=== PATIENT | male | born 1940 | race Caucasian/White ===

== ENCOUNTER → 2018-06-15 | Outpatient (CLI) | payer MEDICARE ==
--- NOTE | 2018-06-15 10:43 | CT ---
EXAMINATION TYPE: CT chest w con DATE OF EXAM: 06/15/2018 COMPARISON: 11/25/2014 HISTORY: COPD CT DLP: 295.4 mGycm Automated exposure control for dose reduction was used. CONTRAST: CT scan of the chest is performed with IV Contrast, patient injected with 100 mL of Isovue 300. FINDINGS: LUNGS: The lungs are grossly clear, there is no concerning parenchymal mass or nodule identified. T here is no pleural effusion or pneumothorax seen. The tracheobronchial tree is patent. MEDIASTINUM: There are no greater than 1 cm hilar or mediastinal lymph nodes. No pericardial effusi on is seen. Thoracic aorta is of normal caliber. The heart is not enlarged. UPPER ABDOMEN: No significant abnormality appreciated. OTHER: Severe degenerative changes thoracic spine. Associated spondylosis. IMPRESSION: 1. No distinct abnormality at this time.
--- NOTE | 2018-06-15 13:02 | XR ---
EXAMINATION TYPE: XR chest 2V DATE OF EXAM: 06/15/2018 COMPARISON: CT chest 06/15/2018 HISTORY: Chronic sinusitis, cough TECHNIQUE: Frontal and lateral views of the chest are obtained. FINDINGS: There is no focal air space opacity, pleural effusion, or pneumothorax seen. The cardiac silhouette size is within normal limits. The osseous structures are intact. Surgical clips are pres ent in the right upper quadrant. Thoracic spondylosis is present. There is a mild spinal curvature. IMPRESSION: No acute cardiopulmonary process.
== END | disposition home or self-care (01) ==
LOC: RADCTMAIN 08:48
PROVIDERS: ATTEND Family Medicine
DX: J44.9 Chronic obstructive pulmonary disease, unspecified (principal)
CPT/HCPCS: 82565; 84520; 71046; 71260; 36415; Q9967

== ENCOUNTER → 2018-06-21 | Outpatient (CLI) | payer MEDICARE ==
--- NOTE | 2018-06-21 10:19 | P.STRESS ---
- Stress Test Note Stress Test Results/Findings: Exam Performed: stress test Exam Date: 06/21/18 Reason for Exam: ABNORMAL EKG Height: 5 ft 8 in Weight: 79.379 kg Protocol: MERLIN Stage: 1 Duration of Exercise: 3:00 Resting Heart Rate: 59 Resting Blood Pressure: 121/80 Maximum Achieved Heart Rate: 126 Maximum Achieved Blood Pressure: 196/86 85% PMHR: 119 100% PMHR: 140 METS: 4.4 Technologist Comment: Stress Test Results/Findings: THIS IS A 78-YEAR-OLD GENTLEMAN WITH HISTORY OF HYPERTENSION, HYPERCHOLESTEROLEMIA AND ALSO SMOKING HISTORY, BEING EVALUATED FOR CARDIAC STATUS. BECAUSE OF ABNORMAL EKG. STRESS data Baseline EKG showed sinus rhythm with occasional PVCs and small Q waves in inferior leads. Blood pressure at rest is 120/80 with pulse rate of 59. Patient walked on the Merlin protocol for 3 minutes, achieving a maximal heart to 126 with a blood pressure of 196/89. Patient is achieving 90% of the pectoral heart rate. EKGs taken during and after the x-ray did not reveal any changes of ischemia. Patient did not express any chest pain. Final impression: #1. Negative regular stress test #2 patient did not experience any chest pain #3. No significant arrhythmias are noted.
== END | disposition home or self-care (01) ==
LOC: RADNMMAIN 08:30
PROVIDERS: ATTEND Family Medicine
DX: R94.31 Abnormal electrocardiogram [ECG] [EKG] (principal)
CPT/HCPCS: 93017

== ENCOUNTER → 2018-09-26 | Outpatient (CLI) | payer MEDICARE ==
--- NOTE | 2018-09-26 15:54 | US ---
EXAMINATION TYPE: US scrotum with doppler. DATE OF EXAM: 09/26/2018 COMPARISON: 08/27/2013 CLINICAL HISTORY: 78-year-old male N50.9 MALE GENITAL ORGANS. Left side swelling and redness x 1 porter h ago-- has improved since starting medication. TECHNIQUE: Grayscale and color Doppler Duplex imaging performed of the scrotum. Findings: EXAM MEASUREMENTS: TESTICLES: Right Testicle: 3.9 x 2.3 x 1.9 cm for a volume of 8.5 mL. Left Testicle: 3.4 x 2.7 x 3.0 cm for a volume of 13.8 mL. The right testicle appears heterogeneous and is asymmetrically smaller no hyperemia. There is some as ymmetric thickening of the right hemiscrotal skin at 6 mm as well. Satisfactory arterial and venous flow demonstrated in both ovaries. EPIDIDYMIS HEAD: Right Epididymis: 0.7 x 1.1 x 0.7 cm Left Epididymis: 0.9 x 1.0 x 0.9 cm with a small 4 mm cyst. Presence of hydroceles: Small to moderate on the left Presence of varicoceles: Some prominent vessels on the right without significant dilatation to sugge st varicoceles. IMPRESSION: 1. No sonographic evidence for testicular torsion. 2. Asymmetrically smaller and heterogeneous right testicle. This is a new finding from 08/27/2013. Cor relate for any traumatic or inflammatory insult to the right testicle in the interval. Consider urolo gy referral as an infiltrative process including lymphoma would be difficult to exclude by imaging. H owever, the overall smaller size of the testicle does argue against this. 3. Small to moderate-sized hydrocele on the left.
== END ==
LOC: RADUSWWP 12:51
PROVIDERS: ATTEND Family Medicine
DX: N43.3 Hydrocele, unspecified (principal); R93.811 Abnormal radiologic findings on diagnostic imaging of right testicle
CPT/HCPCS: 76870; 93975

== ENCOUNTER 2019-07-15 16:29 | Inpatient (IN) | payer MEDICARE ==
[2019-07-15] MEDS ORDERED: SODIUM CHLORIDE 0.9% 500 ML 500 ML IV STA (17:49)
[2019-07-15] MEDS ORDERED: ONDANSETRON 4 MG/2 ML VIAL IVP STA (17:49)
[2019-07-15] MEDS ORDERED: MORPHINE SULFATE 2 MG/ML SYRINGE IVP STA ×2 (17:49→19:52)
--- NOTE | 2019-07-15 17:55 | ED ---
Abdominal Pain HPI <Aníbal Ricci - Last Filed: 07/15/19 21:10> - General Source: patient Mode of arrival: ambulatory Limitations: no limitations <Rosa Larson - Last Filed: 07/15/19 23:03> - General Chief Complaint: Abdominal Pain Stated Complaint: URI Time Seen by Provider: 07/15/19 17:36 - History of Present Illness Initial Comments: 79-year-old male patient presents to the emergency department today for evaluation of lower abdominal pain. Patient states the pain started this morning with a vague ache in his left lower abdomen. Patient states throughout the day the pain has been worsening. States he was recently ill with an upper respiratory infection including cough. Patient states that whenever he coughs now the pain intensifies. He did have a bowel movement yesterday but states it was smaller than usual. He did try Ex-Lax today without relief. Denies any difficulty with urination however he does perform self-catheterization for chronic urinary retention. Denies any hematuria. Denies any back or flank pain. He does have history of bilateral lower abdominal hernia repair. States he did use mesh. He denies any known bulging to the lower abdomen. Patient denies any recent rash, fever, chills, shortness breath, chest pain, nausea, vomiting, numbness, tingling, dizziness, weakness, headache, visual changes, or any other complaints. (Rosa Larson) - Related Data Home Medications Medication Instructions Recorded Confirmed Diltiazem Cd [Cardizem Cd] 180 mg PO DAILY 04/12/16 07/15/19 Ergocalciferol [Vitamin D2] 50,000 unit PO FR 04/12/16 07/15/19 Levothyroxine Sodium [Synthroid] 100 mcg PO DAILY 04/12/16 07/15/19 Dm/Acetaminophen/Doxylamine [Vicks 10 ml PO Q6H PRN 07/15/19 07/15/19 Nyquil Cold-Flu Liquid] guaiFENesin-DM 100-10MG/5ML 10 ml PO Q6H PRN 07/15/19 07/15/19 [Robitussin DM] Allergies Allergy/AdvReac Type Severity Reaction Status Date / Time No Known Allergies Allergy Verified 07/15/19 18:15 Review of Systems ROS Other: All systems not noted in ROS Statement are negative. <Aníbal Ricci - Last Filed: 07/15/19 21:10> ROS Other: All systems not noted in ROS Statement are negative. <Rosa Larson - Last Filed: 07/15/19 23:03> ROS Statement: Those systems with pertinent positive or pertinent negative responses have been documented in the HPI. Past Medical History Past Medical History: Hypertension, Prostate Disorder, Thyroid Disorder Additional Past Medical History / Comment(s): hx polyps, constipation, enlarged prostate History of Any Multi-Drug Resistant Organisms: None Reported Past Surgical History: Cholecystectomy, Hernia Repair Past Anesthesia/Blood Transfusion Reactions: No Reported Reaction Past Psychological History: No Psychological Hx Reported Smoking Status: Current every day smoker - Past Family History Mother Family Medical History: No Reported History <Rosa Larson - Last Filed: 07/15/19 23:03> General Exam Limitations: no limitations General appearance: alert, in no apparent distress, other (Physical well- developed, well-nourished elderly male patient in no acute distress. Vital signs upon presentation are temperature 97.8F, pulse 84, respirations 18, blood pressure 154/97, pulse ox 96% on room air.) Eye exam: Present: normal appearance, PERRL, EOMI. Absent: scleral icterus, conjunctival injection, periorbital swelling ENT exam: Present: normal exam, normal oropharynx, mucous membranes moist Respiratory exam: Present: normal lung sounds bilaterally. Absent: respiratory distress, wheezes, rales, rhonchi, stridor Cardiovascular Exam: Present: regular rate, normal rhythm, normal heart sounds. Absent: systolic murmur, diastolic murmur, rubs, gallop, clicks GI/Abdominal exam: Present: soft, tenderness (Left lower quadrant, suprapubic, and right lower quadrant tenderness), guarding, normal bowel sounds. Absent: distended, rebound, rigid Back exam: Present: normal inspection. Absent: CVA tenderness (R), CVA tenderness (L) Neurological exam: Present: alert, oriented X3, CN II-XII intact Psychiatric exam: Present: normal affect, normal mood Skin exam: Present: warm, dry, intact, normal color. Absent: rash <Rosa Larson - Last Filed: 07/15/19 23:03> Course Vital Signs 07/15/19 07/15/19 17:21 22:43 Temperature 97.8 F 98.2 F Pulse Rate 84 90 Respiratory 18 18 Rate Blood Pressure 154/97 149/79 O2 Sat by Pulse 96 95 Oximetry Medical Decision Making - Lab Data Result diagrams: 07/15/19 18:08 07/15/19 18:08 <Aníbal Ricci - Last Filed: 07/15/19 21:10> - Lab Data Result diagrams: 07/15/19 18:08 07/15/19 18:08 - EKG Data -: EKG Interpreted by Pr - Radiology Data Radiology results: report reviewed <Rosa Larson - Last Filed: 07/15/19 23:03> - Medical Decision Making The patient was seen and examined. All diagnostics were reviewed. The case was discussed with the PA and I agree with the findings as documented. It appears as though the patient does have a spontaneous superficial abdominal wall hematoma. The case is discussed with and he is agreeable with admission under Dr. Rueda with him to consult. He would like serial hemoglobins. Case will be discussed with internal medicine shortly. (Aníbal Ricci) 79-year-old male patient presented to the emergency department today for evaluation of left lower quadrant abdominal pain. Pain worsens significantly with cough and movement. Physical examination did reveal left lower quadrant and suprapubic tenderness. Labs reviewed and did reveal leukocytosis with white blood cell count is 17.5. Remainder of labs are unremarkable. CT abdomen and pelvis was obtained and showed evidence for a large spontaneous superficial abdominal wall hematoma. Case was discussed with on-call surgeon Klever who agrees to admission. Patient will be admitted to Dr. Rueda. (Rosa Larson) - Lab Data Lab Results 07/15/19 07/15/19 07/15/19 Range/Units 18:08 18:08 18:08 WBC 17.9 H (3.8-10.6) k/uL RBC 4.74 (4.30-5.90) m/uL Hgb 14.6 (13.0-17.5) gm/dL Hct 44.9 (39.0-53.0) % MCV 94.9 (80.0-100.0) fL MCH 30.8 (25.0-35.0) pg MCHC 32.5 (31.0-37.0) g/dL RDW 13.4 (11.5-15.5) % Plt Count 292 (150-450) k/uL Neutrophils % 80 % Lymphocytes % 12 % Monocytes % 6 % Eosinophils % 1 % Basophils % 1 % Neutrophils # 14.2 H (1.3-7.7) k/uL Lymphocytes # 2.1 (1.0-4.8) k/uL Monocytes # 1.0 (0-1.0) k/uL Eosinophils # 0.2 (0-0.7) k/uL Basophils # 0.1 (0-0.2) k/uL Sodium 138 (137-145) mmol/L Potassium 5.2 H (3.5-5.1) mmol/L Chloride 105 (98-107) mmol/L Carbon Dioxide 21 L (22-30) mmol/L Anion Gap 12 mmol/L BUN 25 H (9-20) mg/dL Creatinine 1.35 H (0.66-1.25) mg/dL Est GFR (CKD-EPI)AfAm 57 (>60 ml/min/1.73 sqM) Est GFR (CKD-EPI)NonAf 49 (>60 ml/min/1.73 sqM) Glucose 134 H (74-99) mg/dL Plasma Lactic Acid Lalito 1.4 (0.7-2.0) mmol/L Calcium 9.2 (8.4-10.2) mg/dL Total Bilirubin 0.5 (0.2-1.3) mg/dL AST 43 (17-59) U/L ALT 38 (21-72) U/L Alkaline Phosphatase 65 (38-126) U/L Total Protein 7.9 (6.3-8.2) g/dL Albumin 4.4 (3.5-5.0) g/dL Amylase 77 (30-110) U/L Lipase 98 (23-300) U/L - EKG Data EKG Comments: EKG obtained at 1823 shows sinus rhythm with occasional PVCs. Left axis deviation, left bundle branch block. Ventricular rate is 80, CA interval 156, QRS duration 138, QT is 410, QTC 472. (Rosa Larson) - Radiology Data CT abdomen and pelvis was obtained. Report was reviewed in its entirety. Impression by Dr. Beltran shows large 7 x 9 cm hematoma within the left rectus abdominis muscle extending from the epigastric region to the iliac crest and from nearly the umbilicus to the paraspinal region in the subcutaneous tissue superficial to the peritoneal surface. No intraperitoneal extension is identified. (Rosa Larson) Disposition <Aníbal Ricci - Last Filed: 07/15/19 21:10> Decision to Admit Reason: Admit from EC Decision Date: 07/15/19 Decision Time: 21:35 <Rosa Larson - Last Filed: 07/15/19 23:03> Clinical Impression: Abdominal wall hematoma, Leukocytosis Disposition: ADMITTED IP TO THIS [facility] Condition: Serious
[2019-07-15 18:36] LABS: Basophils # (A) 0.1 k/uL (0-0.2); Basophils % (A) 1 %; Eosinophils # (A) 0.2 k/uL (0-0.7); Eosinophils % (A) 1 %; HCT 44.9 % (39.0-53.0); HGB 14.6 gm/dL (13.0-17.5); Lymphocytes # (A) 2.1 k/uL (1.0-4.8); Lymphocytes % (A) 12 %; MCH 30.8 pg (25.0-35.0); MCHC 32.5 g/dL (31.0-37.0); MCV 94.9 fL (80.0-100.0); Mean Platelet Volume 7.2; Monocytes % (A) 6 %; Neutrophils # (A) 14.2 k/uL (1.3-7.7); Neutrophils % (A) 80 %; Platelet Count 292 k/uL (150-450); RBC 4.74 m/uL (4.30-5.90); RDW 13.4 % (11.5-15.5); WBC 17.9 k/uL (3.8-10.6)
[2019-07-15 18:42] LABS: Potassium 5.2 mmol/L (3.5-5.1)
[2019-07-15 18:43] LABS: Albumin 4.4 g/dL (3.5-5.0); Calcium 9.2 mg/dL (8.4-10.2); Total Bilirubin 0.5 mg/dL (0.2-1.3); Total Protein 7.9 g/dL (6.3-8.2)
[2019-07-15] MEDS ORDERED: SODIUM CHLORIDE 0.9% 500 ML 500 ML IV ONE (18:58)
--- NOTE | 2019-07-15 19:55 | CT ---
EXAMINATION TYPE: CT abdomen pelvis w con DATE OF EXAM: 07/15/2019 COMPARISON: None INDICATION: LLQ pain DLP: 1037.1 mGycm, Automated exposure control for dose reduction was used. CONTRAST: 80 mL of Isovue 300. Study performed without Oral Contrast TECHNIQUE: Axial images were obtained from above the diaphragm to the pubic rami in the axial plane a t 5 mm thick sections. Reconstructed images are reviewed on the computer in the coronal plane. FINDINGS: Limited CT sections are obtained the lung bases. The lung bases are clear. CT ABDOMEN: Liver: Normal Spleen: Normal. Couple small nodules are at the hilum. Pancreas: Normal Adrenal glands: The adrenal glands are normal. Gallbladder: Surgically absent Kidneys: No masses are evident. No hydronephrosis is present. There are multiple cysts present bila terally. Delayed images were obtained through the kidneys, which remain unremarkable. Aorta: Vascular calcification is within the aorta. Inferior vena cava: Normal. CT PELVIS: There is a 9.4 x 7.3 cm density within the left rectus abdominis muscles compatible with l arge hematoma. This has some extent into the subcutaneous tissues and towards the lateral left flank. This extends from nearly the epigastric region to the iliac crests along the peritoneal surface. Loops of bowel within the abdomen and pelvis are normal. The studies performed without oral contr ast limiting bowel evaluation. There are scattered diverticuli adjacent to the descending colon and s igmoid colon. Appendix: Normal as visualized. Urinary bladder: Normal. Genitourinary structures: Prostate appears normal Osseous structures: No suspicious lytic or sclerotic lesions. Facet degenerative changes are within t he lumbar spine IMPRESSIONS: 1. Large 7 x 9 cm hematoma within the left rectus abdominis muscle extending from the epigastric reg ion to the iliac crests and from nearly the umbilicus around towards the paraspinal region in the sub cutaneous tissues superficial to the peritoneal surface. No intraperitoneal extension is identified
[2019-07-15] MEDS ORDERED: ONDANSETRON 4 MG/2 ML VIAL IVP PRN (21:32)
[2019-07-15] MEDS ORDERED: NALOXONE 0.4 MG/ML 1 ML VIAL IV PRN (21:32)
[2019-07-15] MEDS ORDERED: MORPHINE SULFATE 2 MG/ML SYRINGE IV PRN (21:32)
[2019-07-15] MEDS ORDERED: BENZONATATE 100 MG CAP PO STA (22:42)
[2019-07-15] MEDS ORDERED: HYDROmorphone 2 MG/ML 1 ML SYRINGE IV PRN (22:45)
[2019-07-16 02:41] LABS: Basophils # (A) 0.1 k/uL (0-0.2); Basophils % (A) 1 %; Eosinophils # (A) 0.2 k/uL (0-0.7); Eosinophils % (A) 2 %; HCT 37.3 % (39.0-53.0); HGB 11.9 gm/dL (13.0-17.5); Lymphocytes # (A) 2.2 k/uL (1.0-4.8); Lymphocytes % (A) 20 %; MCH 30.7 pg (25.0-35.0); Mean Platelet Volume 7.2; Monocytes # (A) 0.7 k/uL (0-1.0); Monocytes % (A) 6 %; Neutrophils # (A) 7.3 k/uL (1.3-7.7); Neutrophils % (A) 68 %; Platelet Count 231 k/uL (150-450); RBC 3.89 m/uL (4.30-5.90); RDW 13.5 % (11.5-15.5); WBC 10.7 k/uL (3.8-10.6)
[2019-07-16 04:33] VITALS: BMI 25.0
[2019-07-16 05:52] LABS: Amorphous Sediment,Urine Rare /hpf; Appearance,Urine Clear (Clear); Bacteria,Urine Occasional /hpf; Bilirubin,Urine Negative (Negative); Blood,Urine Trace (Negative); Color,Urine Yellow; Glucose,Urine (UA) Negative (Negative); Hyaline Casts,Urine 7 /lpf (0-2); Ketones,Urine Negative (Negative); Leukocyte Esterase,Urine Large (Negative); Mucus,Urine Few /hpf; Nitrite,Urine Negative (Negative); Protein,Urine Trace (Negative); RBC,Urine 7 /hpf (0-5); Urobilinogen,Urine <2.0 mg/dL (<2.0); WBC,Urine 57 /hpf (0-5)
[2019-07-16 06:07] LABS: Specific Gravity,Urine >1.050 (1.001-1.035)
[2019-07-16] MEDS: BENZONATATE 100 MG CAP PO PRN (09:02)
[2019-07-16] MEDS: DILTIAZEM CD 180 MG CAP.ER.24H PO SCH (09:02)
[2019-07-16] MEDS: LEVOTHYROXINE 100 MCG TAB PO SCH (09:02)
[2019-07-16] MEDS: DOCUSATE 100 MG CAP PO SCH ×2 (10:33→22:02)
[2019-07-16 10:38] LABS: HCT 34.8 % (39.0-53.0); HGB 11.5 gm/dL (13.0-17.5); MCH 31.4 pg (25.0-35.0); MCHC 32.9 g/dL (31.0-37.0); MCV 95.4 fL (80.0-100.0); Mean Platelet Volume 6.8; Platelet Count 261 k/uL (150-450); RBC 3.65 m/uL (4.30-5.90); RDW 13.3 % (11.5-15.5); WBC 10.6 k/uL (3.8-10.6)
--- NOTE | 2019-07-16 15:30 | P.GSCN ---
History of Present Illness Consult date: 07/16/19 Reason for Consult: abdominal wall hematoma Requesting physician: Rosa Larson History of present illness: CHIEF COMPLAINT: Abdominal pain HISTORY OF PRESENT ILLNESS: 79-year-old male who presented to the hospital for chief complaint of left lower quadrant abdominal pain. Patient states he was sick with an upper respiratory infection last week and has been doing a lot of coughing. He reports he began having pain to his left lower quadrant a few days ago. Denies nausea or vomiting. Denies diarrhea. Patient states he hasn't had a bowel movement in 2 days but does report feeling constipated. Patient denies taking blood thinners. Denies use of naproxen, Motrin, aspirin, etc. Patient reports he did take Tylenol for his abdominal pain. PAST MEDICAL HISTORY: See list. PAST SURGICAL HISTORY: See list. SOCIAL HISTORY: No illicit drug use. REVIEW OF SYSTEMS: CONSTITUTIONAL: Denies fever or chills. HEENT: Denies blurred vision, vision changes, or eye pain. Reports recent upper respiratory infection. CARDIOVASCULAR: Denies chest pain or pressure. RESPIRATORY: No shortness of breath. GASTROINTESTINAL: Refer to HPI for pertinent findings HEMATOLOGIC: Denies bleeding disorders. GENITOURINARY: Denies any blood in urine. SKIN: Denies pruitis. Denies rash. PHYSICAL EXAM: VITAL SIGNS: Reviewed. GENERAL: Well-developed in no acute distress. HEENT: No sclera icterus. Extraocular movements grossly intact. Moist buccal mucosa. Head is atraumatic, normocephalic. ABDOMEN: Soft. Nondistended. Tenderness to left lower quadrant. NEUROLOGIC: Alert and oriented. Cranial nerves II through XII grossly intact. LABORATORY DATA: WBC 17.9 on admission. Repeat 10.6. Hemoglobin 14.6 on admission. Repeat 11.9 and 11.5. IMAGING: CT abdomen and pelvis: Large 7 x 9 cm hematoma within the left rectus abdominis muscle extending from the epigastric region to the iliac crest and ambulate umbilicus around towards the paraspinal region in the subcutaneous tissue superficial to the peritoneal surface. ASSESSMENT: 1. Rectus sheath hematoma, measuring 7 x 9 cm 2. Recent upper respiratory infection PLAN: 1. Monitor hemoglobin. Repeat in a.m. 2. Diet as tolerated 3. Begin Colace 100 mg twice a day 4. Abdominal binder for additional support 5. No surgical intervention required Nurse practitioner note has been reviewed by physician. Signing provider agrees with the documented findings, assessment, and plan of care. Past Medical History Past Medical History: Hypertension, Prostate Disorder, Thyroid Disorder Additional Past Medical History / Comment(s): hx polyps, constipation, enlarged prostate History of Any Multi-Drug Resistant Organisms: None Reported Past Surgical History: Cholecystectomy, Hernia Repair Past Anesthesia/Blood Transfusion Reactions: No Reported Reaction Past Psychological History: No Psychological Hx Reported Smoking Status: Current every day smoker Past Alcohol Use History: None Reported Additional Past Alcohol Use History / Comment(s): pipe use over past 50 yrs Past Drug Use History: None Reported - Past Family History Mother Family Medical History: No Reported History Medications and Allergies Home Medications Medication Instructions Recorded Confirmed Type Diltiazem Cd [Cardizem Cd] 180 mg PO DAILY 04/12/16 07/15/19 History Ergocalciferol [Vitamin D2] 50,000 unit PO FR 04/12/16 07/15/19 History Levothyroxine Sodium [Synthroid] 100 mcg PO DAILY 04/12/16 07/15/19 History Dm/Acetaminophen/Doxylamine [Vicks 10 ml PO Q6H PRN 07/15/19 07/15/19 History Nyquil Cold-Flu Liquid] guaiFENesin-DM 100-10MG/5ML 10 ml PO Q6H PRN 07/15/19 07/15/19 History [Robitussin DM] Allergies Allergy/AdvReac Type Severity Reaction Status Date / Time No Known Allergies Allergy Verified 07/15/19 18:15 Surgical - Exam Vital Signs Temp Pulse Resp BP Pulse Ox 97.8 F 84 18 154/97 96 07/15/19 17:21 07/15/19 17:21 07/15/19 17:21 07/15/19 17:21 07/15/19 17:21 Results - Labs 07/16/19 09:28 07/15/19 18:08 Abnormal Lab Results - Last 24 Hours (Table) 07/15/19 07/15/19 07/16/19 Range/Units 18:08 18:08 02:12 WBC 17.9 H 10.7 H (3.8-10.6) k/uL RBC 3.89 L (4.30-5.90) m/uL Hgb 11.9 L (13.0-17.5) gm/dL Hct 37.3 L (39.0-53.0) % Neutrophils # 14.2 H (1.3-7.7) k/uL Potassium 5.2 H (3.5-5.1) mmol/L Carbon Dioxide 21 L (22-30) mmol/L BUN 25 H (9-20) mg/dL Creatinine 1.35 H (0.66-1.25) mg/dL Glucose 134 H (74-99) mg/dL Ur Specific [place] (1.001-1.035) Urine Protein (Negative) Urine Blood (Negative) Ur Leukocyte Esterase (Negative) Urine RBC (0-5) /hpf Urine WBC (0-5) /hpf Urine WBC Clumps (None) /hpf Amorphous Sediment (None) /hpf Urine Bacteria (None) /hpf Hyaline Casts (0-2) /lpf Urine Mucus (None) /hpf 07/16/19 07/16/19 Range/Units 05:19 09:28 WBC (3.8-10.6) k/uL RBC 3.65 L (4.30-5.90) m/uL Hgb 11.5 L (13.0-17.5) gm/dL Hct 34.8 L (39.0-53.0) % Neutrophils # (1.3-7.7) k/uL Potassium (3.5-5.1) mmol/L Carbon Dioxide (22-30) mmol/L BUN (9-20) mg/dL Creatinine (0.66-1.25) mg/dL Glucose (74-99) mg/dL Ur Specific [place] >1.050 H (1.001-1.035) Urine Protein Trace H (Negative) Urine Blood Trace H (Negative) Ur Leukocyte Esterase Large H (Negative) Urine RBC 7 H (0-5) /hpf Urine WBC 57 H (0-5) /hpf Urine WBC Clumps Rare H (None) /hpf Amorphous Sediment Rare H (None) /hpf Urine Bacteria Occasional H (None) /hpf Hyaline Casts 7 H (0-2) /lpf Urine Mucus Few H (None) /hpf Diabetes panel 07/15/19 Range/Units 18:08 Sodium 138 (137-145) mmol/L Potassium 5.2 H (3.5-5.1) mmol/L Chloride 105 (98-107) mmol/L Carbon Dioxide 21 L (22-30) mmol/L BUN 25 H (9-20) mg/dL Creatinine 1.35 H (0.66-1.25) mg/dL Glucose 134 H (74-99) mg/dL Calcium 9.2 (8.4-10.2) mg/dL AST 43 (17-59) U/L ALT 38 (21-72) U/L Alkaline Phosphatase 65 (38-126) U/L Total Protein 7.9 (6.3-8.2) g/dL Albumin 4.4 (3.5-5.0) g/dL Calcium panel 07/15/19 Range/Units 18:08 Calcium 9.2 (8.4-10.2) mg/dL Albumin 4.4 (3.5-5.0) g/dL Pituitary panel 07/15/19 Range/Units 18:08 Sodium 138 (137-145) mmol/L Potassium 5.2 H (3.5-5.1) mmol/L Chloride 105 (98-107) mmol/L Carbon Dioxide 21 L (22-30) mmol/L BUN 25 H (9-20) mg/dL Creatinine 1.35 H (0.66-1.25) mg/dL Glucose 134 H (74-99) mg/dL Calcium 9.2 (8.4-10.2) mg/dL Adrenal panel 07/15/19 Range/Units 18:08 Sodium 138 (137-145) mmol/L Potassium 5.2 H (3.5-5.1) mmol/L Chloride 105 (98-107) mmol/L Carbon Dioxide 21 L (22-30) mmol/L BUN 25 H (9-20) mg/dL Creatinine 1.35 H (0.66-1.25) mg/dL Glucose 134 H (74-99) mg/dL Calcium 9.2 (8.4-10.2) mg/dL Total Bilirubin 0.5 (0.2-1.3) mg/dL AST 43 (17-59) U/L ALT 38 (21-72) U/L Alkaline Phosphatase 65 (38-126) U/L Total Protein 7.9 (6.3-8.2) g/dL Albumin 4.4 (3.5-5.0) g/dL
--- NOTE | 2019-07-16 23:22 | HP ---
HISTORY AND PHYSICAL CHIEF COMPLAINT: D[id number] white male with abdominal wall hematoma respiratory infection last week, doing a lot of coughing. Pain in left lower quadrant a few days ago. Denied nausea, vomiting or diarrhea. Due to significant cough, congestion and worsening cough and a lot of cold medicines, possibly his blood pressure elevated and as he coughed abdominal contractions caused some bleeding. He does not take any blood thinners. Denies any NSAIDs. PAST MEDICAL HISTORY: See list. SURGICAL HISTORY: See list. SOCIAL HISTORY: No drugs. REVIEW OF SYSTEMS: Fourteen-point review of systems positive for cough, congestion, respiratory distress. Otherwise negative. PHYSICAL EXAMINATION: VITAL SIGNS: Reviewed. CARDIOVASCULAR: S1, S2. LUNGS: Transmitted upper airway sounds. Scattered rhonchi and wheeze. HEMATOLOGY: Negative Homans. PSYCH: Fair mood and affect. NEUROLOGIC: Alert and oriented x3. LABS/IMAGING: White count 17.9, hemoglobin 10.6. It was 14.[address] scan of abdomen and pelvis: 7 x 9 cm hematoma, left rectus abdominis muscles. ASSESSMENT: 1. Hematoma, rectus abdominis muscle. 2. Hypertension. 3. Prostate disorder. 4. Hypothyroidism. 5. Acute renal insufficiency. 6. Anemia. 7. Hyperkalemia. 8. Possible urinary tract infection. PLAN: Continue with Synthroid, Cardizem CD. Chest x-ray. Possible antibiotics. Check hemoglobin every 12 hours p.r.n. condition. Please see further orders. Serial hemoglobins. When cleared by Surgery he will be discharged home. MMODL / IJN: [id number] /
--- NOTE | 2019-07-16 23:42 | XR ---
EXAMINATION TYPE: XR chest 2V DATE OF EXAM: 07/16/2019 COMPARISON: 06/15/2018 HISTORY: Dyspnea TECHNIQUE: Frontal and lateral views of the chest are obtained. FINDINGS: Heart and mediastinum are normal. Lungs are clear. Diaphragm is normal. There are no hilar masses. Bony thorax appears intact. There is spurring in the thoracic spine. IMPRESSION: No active cardiopulmonary disease. Normal heart. No change.
[2019-07-17] MEDS: BENZONATATE 100 MG CAP PO PRN ×2 (04:19→13:39)
[2019-07-17 04:38] LABS: Basophils # (A) 0.1 k/uL (0-0.2); Basophils % (A) 1 %; Eosinophils # (A) 0.3 k/uL (0-0.7); Eosinophils % (A) 2 %; HCT 34.9 % (39.0-53.0); HGB 11.3 gm/dL (13.0-17.5); Lymphocytes # (A) 3.2 k/uL (1.0-4.8); Lymphocytes % (A) 29 %; MCH 31.6 pg (25.0-35.0); MCHC 32.5 g/dL (31.0-37.0); Mean Platelet Volume 6.5; Monocytes # (A) 0.7 k/uL (0-1.0); Monocytes % (A) 7 %; Neutrophils # (A) 6.3 k/uL (1.3-7.7); Neutrophils % (A) 57 %; Platelet Count 267 k/uL (150-450); RBC 3.59 m/uL (4.30-5.90); RDW 13.2 % (11.5-15.5); WBC 11.1 k/uL (3.8-10.6)
[2019-07-17 04:45] LABS: Albumin 3.8 g/dL (3.5-5.0); Calcium 8.8 mg/dL (8.4-10.2); Total Bilirubin 0.8 mg/dL (0.2-1.3); Total Protein 6.8 g/dL (6.3-8.2)
[2019-07-17 05:07] LABS: Creatine Kinase MB 2.6 ng/mL (0.0-2.4); Troponin I 0.024 ng/mL (0.000-0.034)
[2019-07-17 05:42] LABS: Glucose,Whole Blood 132 mg/dL (75-99)
[2019-07-17] MEDS: LEVOTHYROXINE 100 MCG TAB PO SCH (05:44)
[2019-07-17] MEDS ORDERED: IPRATROPIUM-ALBUTEROL 3 ML NEB INHALATION PRN ×2 (06:57→09:33)
--- NOTE | 2019-07-17 08:42 | CT ---
EXAMINATION TYPE: CT chest angio for PE DATE OF EXAM: 07/17/2019 COMPARISON: Chest CT June 15, 2018. HISTORY: Chest pressure and pain CT DLP: 45 mGycm. Automated Exposure Control for Dose Reduction was Utilized. CONTRAST: CTA scan of the thorax is performed with IV Contrast, patient injected with 71 mL of Isovue 370, pulm onary embolism protocol. MIP Images are created on CT scanner and reviewed. FINDINGS: LUNGS: Since prior CT there is new bilateral lower lobe linear scarring and/or atelectasis. Upper brianne gs are clear. No pleural effusion or pneumothorax. No suspicious nodules or masses. MEDIASTINUM: There is satisfactory enhancement of the pulmonary artery and its branches, there is no CT evidence for pulmonary embolism. There are no greater than 1 cm hilar or mediastinal lymph nodes. No cardiomegaly or pericardial effusion is seen. Coronary artery calcification is present which is noted marker for underlying coronary artery disease. OTHER: Bilateral gynecomastia is redemonstrated. Moderate to advanced multilevel anterior and lateral spurring throughout the mid to lower thoracic spine is again seen. Cholecystectomy clips are seen. T here are a few probable simple appearing thin-walled cysts seen scattered throughout the visualized p ortion of upper pole left kidney. Some anterior splenule's are partially imaged. IMPRESSION: 1. No CT evidence for acute pulmonary embolism. 2. New bilateral lower lobe linear opacity favors atelectasis and/or scarring.
[2019-07-17] MEDS: DILTIAZEM CD 180 MG CAP.ER.24H PO SCH (10:25)
[2019-07-17] MEDS: DOCUSATE 100 MG CAP PO SCH ×2 (10:26→19:46)
[2019-07-17 12:19] LABS: Creatine Kinase MB 10.1 ng/mL (0.0-2.4)
[2019-07-17 12:30] LABS: Troponin I 0.8 ng/mL (0.000-0.034)
[2019-07-17 13:14] LABS: Cholesterol 122 mg/dL (<200); HDL Cholesterol 40 mg/dL (40-60); LDL Cholesterol,Calculated 68 mg/dL (0-99); Triglycerides 72 mg/dL (<150)
--- NOTE | 2019-07-17 13:25 | P.CRDCN ---
History of Present Illness History of present illness: This is a pleasant 79-year-old male past medical history significant for hypertension and chronic nicotine dependence. 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 We have been asked to see the patient in consultation secondary to chest pain with an abnormal EKG. He initially presented to the hospital complaining of lower abdominal discomfort and persistent cough. The patient has been coughing for over a week. The cough is mostly dry and hacking and he states he cannot clear his sputum. Then a couple of days ago he started to develop lower abdominal discomfort. Upon arrival to the emergency department a CT of his abdomen was obtained and revealed a 7 x 9 cm hematoma of the abdominal wall. He has been seen in consultation by surgery and they are recommending close monitoring of the CBC with no planned surgical intervention. Last evening he developed a tight sensation in the midsternal region. It is questionable whether the discomfort was associated with cough as he is coughing so frequently he said he cannot differentiate. There was no radiation to the arm, back, neck or jaw. This was associated with some mild shortness of breath and he also became quite diaphoretic per the nurse. There is no associated palpitations, nausea, vomiting or dizziness. EKGs obtained at that time again revealed left bundle branch block. He is seen and examined sitting up resting quite comfortably in bed in no acute distress. He denies any further episodes of chest discomfort. He continues to cough quite frequently throughout the exam. He is currently maintained on updrafts and Tessalon Perles with no relief of pulmonary symptoms. EKG on admission on July 15 revealed sinus mechanism, left bundle branch block, left axis deviation and PVCs. Subsequent EKGs obtained at the time of chest discomfort and again this morning reveal sinus rhythm with left bundle branch block. Chest x-ray is negative for an acute cardiopulmonary process. CTA chest is negative for pulmonary embolism, new bilateral lower lobe linear obesities. Coronary artery calcification is present. Laboratory data reviewed, WBC on admission 17.9 and repeat today 11.1, hemoglobin on admission 14.6 repeat today 11.3, sodium 137, potassium 4.0, creatinine 1.03, AST 66, ALT 109, total CK 345, troponin 0.024, second troponin 0.800 with a total CK 431. Current daily cardiac medications include Cardizem 180 mg daily. He underwent an exercise stress test in 2018 at that time was in sinus mechanism with inferior Q wave. He walked on a Ralph protocol for approximately 3 minutes achieving his target heart rate and hadsymptoms of angina with no EKG evidence of ischemia. At the time of my exam: CONSTITUTIONAL: Denies fever. Denies chills. EYES: Denies blurred vision. Denies vision changes. Denies eye pain. EARS, NOSE, MOUTH & THROAT: Denies headache. Denies sore throat. Denies ear pain. CARDIOVASCULAR: Denies chest pain. Denies shortness of breath. Denies orthopnea. Denies PND. Denies palpitations. RESPIRATORY: Complains of cough. GASTROINTESTINAL: Denies abdominal pain. Denies diarrhea. Denies constipation. Denies nausea. Denies vomiting. MUSCULOSKELETAL: Denies myalgias. INTEGUMENTARY: Denies pruitis. Denies rash. NEUROLOGIC: Denies numbness. Denies tingling. Denies weakness. PSYCHIATRIC: Denies anxiety. Denies depression. ENDOCRINE: Denies fatigue. Denies weight change. Denies polydipsia. Denies polyurina. GENITOURINARY: Denies burning, hematuria or urgency with micturation. HEMATOLOGIC: Denies history of anemia. Denies bleeding. Blood pressure 171/90 heart rate 90 afebrile maintaining oxygen saturation on nasal cannula GENERAL: This is a 79-year-old male in no apparent distress at the time of my examination. HEENT: Head is atraumatic, normocephalic. Pupils are equal, round. Sclerae a nicteric. Conjunctivae are clear. Mucous membranes of the mouth are moist. Neck is supple. There is no jugular venous distention. No carotid bruit is heard. LUNGS: Faint scatterd rhonchi, no rales or wheezes. No chest wall tenderness is noted on palpation or with deep breathing. HEART: Regular rate and rhythm with faint systolic murmur, no rubs or gallops. S1 and S2 heard. ABDOMEN: Soft, nontender. Bowel sounds are heard. No organomegaly noted. EXTREMITIES: No evidence of peripheral edema and no calf tenderness noted. VASCULAR: Radial and dorsalis pedis pulses palpated, no evidence of clubbing. NEUROLOGIC: Patient is awake, alert and oriented x3. ASSESSMENT [id number] myocardial infarction Left bundle branch block, last EKG obtained during a stress test in 2018 there was NO left bundle branch block. Chest pain last night Persistent cough Abdominal wall hematoma secondary to abdominal wall tear Anemia secondary to hematoma Leukocytosis Hypertension Chronic nicotine dependence PLAN Per Dr. Xie, no heparin at this time due to hematoma. Initiate on lopressor 50 mg BID, imdur 30 mg daily, aspirin 81 mg daily and atovastatin 40 mg daily. Continue to check serial troponins. Check stat d-dimer. Transfer to higher level of care for closer cardiac monitoring and 24-telemetry. Obtain 2D echocardiogram and doppler study to assess cardiac structure and function. At this point we will maximize his medical therapy as he is not a candidate for IV heparin or heparin that would be required for cardiac catheterization. Further recommendations to follow based on clinical course. Thank you kindly for this consultation. Nurse Practitioner note has been reviewed, I agree with a documented findings and plan of care. Patient was seen and examined. Past Medical History Past Medical History: Hypertension, Prostate Disorder, Thyroid Disorder Additional Past Medical History / Comment(s): hx polyps, constipation, enlarged prostate History of Any Multi-Drug Resistant Organisms: None Reported Past Surgical History: Cholecystectomy, Hernia Repair Past Anesthesia/Blood Transfusion Reactions: No Reported Reaction Past Psychological History: No Psychological Hx Reported Smoking Status: Current every day smoker Past Alcohol Use History: None Reported Additional Past Alcohol Use History / Comment(s): pipe use over past 50 yrs Past Drug Use History: None Reported - Past Family History Mother Family Medical History: No Reported History Medications and Allergies Home Medications Medication Instructions Recorded Confirmed Type Diltiazem Cd [Cardizem Cd] 180 mg PO DAILY 04/12/16 07/15/19 History Ergocalciferol [Vitamin D2] 50,000 unit PO FR 04/12/16 07/15/19 History Levothyroxine Sodium [Synthroid] 100 mcg PO DAILY 04/12/16 07/15/19 History Dm/Acetaminophen/Doxylamine [Vicks 10 ml PO Q6H PRN 07/15/19 07/15/19 History Nyquil Cold-Flu Liquid] guaiFENesin-DM 100-10MG/5ML 10 ml PO Q6H PRN 07/15/19 07/15/19 History [Robitussin DM] Allergies Allergy/AdvReac Type Severity Reaction Status Date / Time No Known Allergies Allergy Verified 07/15/19 18:15 Physical Exam Vitals: Vital Signs Temp Pulse Pulse Resp BP Pulse Ox 07/17/19 12:35 90 07/17/19 12:26 88 07/17/19 05:00 98.1 F 99 20 171/90 98 07/17/19 04:00 98.7 F 105 H 20 167/100 92 L 07/16/19 21:00 99.3 F 81 18 134/76 96 07/16/19 14:51 99 16 07/16/19 13:51 98.3 F 99 16 149/83 95 Intake and Output 07/16/19 07/17/19 07/17/19 22:59 06:59 14:59 Intake Total 940 350 Balance 940 350 Intake: Oral 940 350 Other: # Voids 1 1 Results 07/17/19 04:26 07/17/19 04:26 Cardiac Enzymes 07/17/19 07/17/19 07/17/19 Range/Units 04:26 04:26 11:20 AST 66 H (17-59) U/L CK-MB (CK-2) 2.6 H 10.1 H (0.0-2.4) ng/mL Troponin I 0.024 0.800 H* (0.000-0.034) ng/mL CBC 07/17/19 Range/Units 04:26 WBC 11.1 H (3.8-10.6) k/uL RBC 3.59 L (4.30-5.90) m/uL Hgb 11.3 L (13.0-17.5) gm/dL Hct 34.9 L (39.0-53.0) % Plt Count 267 (150-450) k/uL Comprehensive Metabolic Panel 07/17/19 Range/Units 04:26 Sodium 137 (137-145) mmol/L Potassium 4.0 (3.5-5.1) mmol/L Chloride 106 (98-107) mmol/L Carbon Dioxide 23 (22-30) mmol/L BUN 21 H (9-20) mg/dL Creatinine 1.03 (0.66-1.25) mg/dL Glucose 125 H (74-99) mg/dL Calcium 8.8 (8.4-10.2) mg/dL AST 66 H (17-59) U/L ALT 109 H (21-72) U/L Alkaline Phosphatase 66 (38-126) U/L Total Protein 6.8 (6.3-8.2) g/dL Albumin 3.8 (3.5-5.0) g/dL Current Medications Generic Name Dose Route Start Last Admin Trade Name Freq PRN Reason Stop Dose Admin Albuterol/Ipratropium 3 ml 07/17/19 09:33 07/17/19 12:26 Duoneb 0.5 Mg-3 Mg/3 Ml Soln INHALATION 3 ml RT-Q2H PRN Administration Shortness Of Breath Or Wheezing Aspirin 81 mg 07/17/19 13:00 Aspirin PO DAILY [facility] Atorvastatin Calcium 40 mg 07/17/19 13:00 Lipitor PO DAILY [facility] Benzonatate 200 mg 07/15/19 22:42 07/17/19 04:19 Tessalon Perles PO 200 mg TID PRN Administration Cough Docusate Sodium 100 mg 07/16/19 09:45 07/17/19 10:26 Colace PO 100 mg BID [facility] Administration Hydromorphone HCl 1 mg 07/15/19 22:45 07/17/19 04:19 Dilaudid IV 1 mg Q3H PRN Administration Pain Isosorbide Mononitrate 30 mg 07/17/19 13:00 Imdur PO DAILY [facility] Levothyroxine Sodium 100 mcg 07/16/19 08:00 07/17/19 05:44 Synthroid PO 100 mcg DAILY@0630 [facility] Administration Metoprolol Tartrate 50 mg 07/17/19 13:00 Lopressor PO BID [facility] Naloxone HCl 0.2 mg 07/15/19 21:32 Narcan IV Q2M PRN Opioid Reversal Ondansetron HCl 4 mg 07/15/19 21:32 Zofran IVP Q8HR PRN Nausea And Vomiting Intake and Output 07/16/19 07/17/19 07/17/19 22:59 06:59 14:59 Intake Total 940 350 Balance 940 350 Intake: Oral 940 350 Other: # Voids 1 1 07/17/19 04:26 07/17/19 04:26
[2019-07-17] MEDS: ATORVASTATIN 40 MG TAB PO SCH (13:40)
[2019-07-17] MEDS: ISOSORBIDE MONONITRATE ER 30 MG TAB.ER.24H PO SCH (13:40)
[2019-07-17] MEDS: ASPIRIN 81 MG PO SCH (13:40)
--- NOTE | 2019-07-17 14:02 | P.CNPUL ---
History of Present Illness Consult date: 07/17/19 Requesting physician: Nathan Rueda Reason for consult: dyspnea Chief complaint: Lower abdominal pain History of present illness: This is a very pleasant 79-year-old gentleman who follows with Dr. Rueda as his primary care physician. He has a history of hypothyroidism, hypertension, enlarged prostate, self catheterizations. He also has a 50+ year daily by smoking history. He denies any history of COPD, asthma. No action at home. No inhalers at home. Approximately a week ago he developed flulike symptoms with cough congestion and fatigue. Yesterday he was having significant lower abdominal discomfort while coughing and presented to the emergency room for the same. Computed tomography scan of the abdomen revealed a large 7 x 9 cm hematoma within the left rectus abdominis muscle extending from the epigastric region to the iliac crest from neurology and bellicose around towards the piercing a region in the subcutaneous tissue superficial to the peritoneal surface. No intraperitoneal extension was noted. Hemoglobin 11.5. He was subsequently admitted and was doing well. Earlier this morning he developed increasing shortness of breath continued cough and congestion. O2 saturation dropped to 92% and was placed on supplemental oxygen 2 L/m per nasal cannula. CT angiogram ruled out pulmonary embolism. There is some bilateral lower lobe linear opacities suggestive of atelectasis versus scarring. No acute processes. He's been initiated and DuoNeb inhalations and Tessalon Perles. He is seen today in consultation on the regular medical floor. He is having some chest discomfort mainly with coughing. White count 11.1. Hemoglobin 11.3. Creatinine 1.03. Troponin 0.024, 0.80. AST 66, ALT 109. Echocardiogram is pending. Blood cultures reveal no growth to date. Review of Systems REVIEW OF SYSTEMS: CONSTITUTIONAL: Denies any recent significant weight loss or weight gain. EYES: Denies change in vision. EARS, NOSE, MOUTH, THROAT: Denies headaches, denies sore throat. CARDIOVASCULAR: Positive for chest pain, no palpitations or syncopal episodes. RESPIRATORY: Positive for shortness of breath, cough, congestion no hemoptysis. GASTROINTESTINAL: Positive for abdominal pain GENITOURINARY: Denies hematuria, denies infections. MUSKULOSKELETAL: Denies pain, denies swelling. INTEGUMENTARY: Denies rash, denies eczema. NEUROLOGICAL: Denies recent memory loss, no recent seizure activity. PSYCHIATRIC: Denies anxiety, denies depression. HEMATOLOGIC/LYMPHATIC: Denies anemia, denies enlarged lymph nodes. Past Medical History Past Medical History: Hypertension, Prostate Disorder, Thyroid Disorder Additional Past Medical History / Comment(s): hx polyps, constipation, enlarged prostate History of Any Multi-Drug Resistant Organisms: None Reported Past Surgical History: Cholecystectomy, Hernia Repair Past Anesthesia/Blood Transfusion Reactions: No Reported Reaction Past Psychological History: No Psychological Hx Reported Smoking Status: Current every day smoker Past Alcohol Use History: None Reported Additional Past Alcohol Use History / Comment(s): pipe use over past 50 yrs Past Drug Use History: None Reported - Past Family History Mother Family Medical History: No Reported History Medications and Allergies Home Medications Medication Instructions Recorded Confirmed Type Diltiazem Cd [Cardizem Cd] 180 mg PO DAILY 04/12/16 07/15/19 History Ergocalciferol [Vitamin D2] 50,000 unit PO FR 04/12/16 07/15/19 History Levothyroxine Sodium [Synthroid] 100 mcg PO DAILY 04/12/16 07/15/19 History Dm/Acetaminophen/Doxylamine [Vicks 10 ml PO Q6H PRN 07/15/19 07/15/19 History Nyquil Cold-Flu Liquid] guaiFENesin-DM 100-10MG/5ML 10 ml PO Q6H PRN 07/15/19 07/15/19 History [Robitussin DM] Allergies Allergy/AdvReac Type Severity Reaction Status Date / Time No Known Allergies Allergy Verified 07/15/19 18:15 Physical Exam Vitals: Vital Signs Temp Pulse Pulse Resp BP Pulse Ox 07/17/19 12:59 97.6 F 94 18 153/87 98 07/17/19 12:35 90 07/17/19 12:26 88 07/17/19 05:00 98.1 F 99 20 171/90 98 07/17/19 04:00 98.7 F 105 H 20 167/100 92 L 07/16/19 21:00 99.3 F 81 18 134/76 96 07/16/19 14:51 99 16 07/16/19 13:51 98.3 F 99 16 149/83 95 Intake and Output 07/16/19 07/17/19 07/17/19 22:59 06:59 14:59 Intake Total 940 350 Balance 940 350 Intake: Oral 940 350 Other: # Voids 1 1 GENERAL EXAM: Alert, very pleasant 79-year-old gentleman, on 2 L nasal cannula, fairly comfortable in no apparent distress. HEAD: Normocephalic. EYES: Normal reaction of pupils, equal size. NOSE: Clear with pink turbinates. THROAT: No erythema or exudates. NECK: No masses, no JVD. CHEST: No chest wall deformity. LUNGS: Equal air entry with no crackles, wheeze, rhonchi or dullness. CVS: S1 and S2 normal with no audible murmur, regular rhythm. ABDOMEN: Palpable abdominal hematoma. SPINE: No scoliosis or deformity SKIN: No rashes CENTRAL NERVOUS SYSTEM: No focal deficits, tone is normal in all 4 extremities. EXTREMITIES: There is no peripheral edema. No clubbing, no cyanosis. Peripheral pulses are intact. Results - Laboratory Findings CBC and BMP: 07/17/19 04:26 07/17/19 04:26 Abnormal lab findings: Abnormal Labs 07/15/19 07/15/19 07/16/19 18:08 18:08 02:12 WBC 17.9 H 10.7 H RBC 3.89 L Hgb 11.9 L Hct 37.3 L Neutrophils # 14.2 H Potassium 5.2 H Carbon Dioxide 21 L BUN 25 H Creatinine 1.35 H Glucose 134 H POC Glucose (mg/dL) AST ALT Total Creatine Kinase CK-MB (CK-2) Troponin I Ur Specific [place] Urine Protein Urine Blood Ur Leukocyte Esterase Urine RBC Urine WBC Urine WBC Clumps Amorphous Sediment Urine Bacteria Hyaline Casts Urine Mucus 07/16/19 07/16/19 07/17/19 05:19 09:28 04:26 WBC 11.1 H RBC 3.65 L 3.59 L Hgb 11.5 L 11.3 L Hct 34.8 L 34.9 L Neutrophils # Potassium Carbon Dioxide BUN Creatinine Glucose POC Glucose (mg/dL) AST ALT Total Creatine Kinase CK-MB (CK-2) Troponin I Ur Specific [place] >1.050 H Urine Protein Trace H Urine Blood Trace H Ur Leukocyte Esterase Large H Urine RBC 7 H Urine WBC 57 H Urine WBC Clumps Rare H Amorphous Sediment Rare H Urine Bacteria Occasional H Hyaline Casts 7 H Urine Mucus Few H 07/17/19 07/17/19 07/17/19 04:26 04:26 05:40 WBC RBC Hgb Hct Neutrophils # Potassium Carbon Dioxide BUN 21 H Creatinine Glucose 125 H POC Glucose (mg/dL) 132 H AST 66 H ALT 109 H Total Creatine Kinase 345 H CK-MB (CK-2) 2.6 H Troponin I Ur Specific [place] Urine Protein Urine Blood Ur Leukocyte Esterase Urine RBC Urine WBC Urine WBC Clumps Amorphous Sediment Urine Bacteria Hyaline Casts Urine Mucus 07/17/19 11:20 WBC RBC Hgb Hct Neutrophils # Potassium Carbon Dioxide BUN Creatinine Glucose POC Glucose (mg/dL) AST ALT Total Creatine Kinase 431 H CK-MB (CK-2) 10.1 H Troponin I 0.800 H* Ur Specific [place] Urine Protein Urine Blood Ur Leukocyte Esterase Urine RBC Urine WBC Urine WBC Clumps Amorphous Sediment Urine Bacteria Hyaline Casts Urine Mucus - Diagnostic Findings Chest x-ray: image reviewed CT scan - chest: image reviewed Assessment and Plan Assessment: Impression: #1 Left lower quadrant abdominal pain secondary to large 7 x 9 cm hematoma within the left rectus abdominis muscle extending from the epigastric region to the iliac crest and nearly the umbilicus around towards the paraspinal region in the subcutaneous tissue superficial to the peritoneal surface. No intraperitoneal extension identified. #2 Recent upper respiratory infection with a excessive coughing and subsequent abdominal discomfort. CT angiogram ruled out pulmonary embolism. There is some atelectasis versus scarring in the lung bases only. #3 Chest pain mainly with coughing and small troponin leak. Echocardiogram pending. #4 Enlarged prostate. Self catheterization. #5 Hypertension. #6 Hypothyroidism. Plan: The patient was seen and evaluated by Dr. Linn. Chest x-ray, CAT scans and labs all reviewed. We'll continue with bronchodilators and Tessalon Perles. No acute pulmonary process identified. Echocardiogram is pending. Surgical services are on the case regarding the abdominal hematoma. Continue to monitor hemoglobin. We will continue to follow and make further recommendations based on his clinical status. I, the cosigning physician, performed a history & physical examination of the patient. Lungs sounds are clear. Maintaining good O2 saturations in the 90s on 2 L/m per nasal cannula. I discussed the assessment and plan of care with my nurse practitioner, Doris Covarrubias. I attest to the above consultation as dictated by her. Time with Patient: Greater than 30
--- NOTE | 2019-07-17 14:30 | P.PN ---
Subjective Progress Note Date: 07/17/19 CHIEF COMPLAINT: Abdominal pain HISTORY OF PRESENT ILLNESS: Patient examined at the bedside. He reports his abdominal pain is tolerable. He does report continued coughing. Hemoglobin 11.3. PHYSICAL EXAM: VITAL SIGNS: Reviewed. GENERAL: Well-developed in no acute distress. HEENT: No sclera icterus. Extraocular movements grossly intact. Moist buccal mucosa. Head is atraumatic, normocephalic. ABDOMEN: Soft. Nondistended. Nontender. NEUROLOGIC: Alert and oriented. Cranial nerves II through XII grossly intact. ASSESSMENT: 1. Rectus sheath hematoma, measuring 7 x 9 cm 2. Recent upper respiratory infection PLAN: 1. Monitor hemoglobin 2. Diet as tolerated 3. Abdominal binder for additional support 4. No surgical intervention required 5. Cardiology is following for abnormal troponins. Case discussed with Lacie Abel NP. No IV heparin at this time due to rectus sheath hematoma. Nurse practitioner note has been reviewed by physician. Signing provider agrees with the documented findings, assessment, and plan of care. Objective - Vital Signs Vital signs: Vital Signs Temp 97.6 F 07/17/19 12:59 Pulse 94 07/17/19 12:59 Resp 18 07/17/19 12:59 BP 153/87 07/17/19 12:59 Pulse Ox 98 07/17/19 12:59 Intake & Output 07/16/19 07/17/19 07/17/19 18:59 06:59 18:59 Intake Total 1080 750 Output Total 700 Balance 1080 750 -700 Intake: Oral 1080 750 Output: Urine 700 Other: # Voids 1 1 1 - Labs CBC & Chem 7: 07/17/19 04:26 07/17/19 04:26 Labs: Abnormal Lab Results - Last 24 Hours (Table) 07/17/19 07/17/19 07/17/19 Range/Units 04:26 04:26 04:26 WBC 11.1 H (3.8-10.6) k/uL RBC 3.59 L (4.30-5.90) m/uL Hgb 11.3 L (13.0-17.5) gm/dL Hct 34.9 L (39.0-53.0) % D-Dimer (<0.60) mg/L FEU BUN 21 H (9-20) mg/dL Glucose 125 H (74-99) mg/dL POC Glucose (mg/dL) (75-99) mg/dL AST 66 H (17-59) U/L ALT 109 H (21-72) U/L Total Creatine Kinase 345 H (55-170) U/L CK-MB (CK-2) 2.6 H (0.0-2.4) ng/mL Troponin I (0.000-0.034) ng/mL 07/17/19 07/17/19 07/17/19 Range/Units 05:40 11:20 13:32 WBC (3.8-10.6) k/uL RBC (4.30-5.90) m/uL Hgb (13.0-17.5) gm/dL Hct (39.0-53.0) % D-Dimer 0.89 H (<0.60) mg/L FEU BUN (9-20) mg/dL Glucose (74-99) mg/dL POC Glucose (mg/dL) 132 H (75-99) mg/dL AST (17-59) U/L ALT (21-72) U/L Total Creatine Kinase 431 H (55-170) U/L CK-MB (CK-2) 10.1 H (0.0-2.4) ng/mL Troponin I 0.800 H* (0.000-0.034) ng/mL Microbiology - Last 24 Hours (Table) 07/15/19 18:08 Blood Culture - Preliminary Blood No Growth after 24 hours
[2019-07-17] MEDS: METOPROLOL TARTRATE 50 MG TAB PO SCH ×2 (16:03→19:45)
[2019-07-17] MEDS ORDERED: guaiFENesin SYRUP 100MG/5ML 200 MG/10 ML CUP PO PRN (17:02)
--- NOTE | 2019-07-17 17:07 | P.PN ---
Subjective Progress Note Date: 07/17/19 This is an 79-year-old gentleman admitted with bronchitis, significant cough with abdominal wall hematoma and multiple other medical issues. Last night/Earlier this morning developed midsternal chest pressure-vague historian, with no radiation, accompanied by shortness of breath and diaphoresis. EKGs obt ained reporting sinus rhythm with left bundle branch block. CTA negative for pulmonary embolism, reported new bilateral lower lobe linear opacities. Serial troponins ordered, initial troponin 0.024 with second troponin increased up to 0.8. Cardiology consulted. No further episodes of chest pain/chest pressure . Hemoglobin 11.3. Abdominal pain controlled. Objective - Vital Signs Vital signs: Vital Signs Temp 97.6 F 07/17/19 12:59 Pulse 94 07/17/19 12:59 Resp 18 07/17/19 12:59 BP 153/87 07/17/19 12:59 Pulse Ox 98 07/17/19 12:59 Intake & Output 07/16/19 07/17/19 07/17/19 18:59 06:59 18:59 Intake Total 1080 750 Output Total 700 Balance 1080 750 -700 Intake: Oral 1080 750 Output: Urine 700 Other: # Voids 1 1 1 - Exam PHYSICAL EXAM: VITAL SIGNS: As above GENERAL: Sitting up in bed, no acute distress HEENT: Conjunctivae normal. eyes normal. Oral mucosa moist NECK: No JVD. No thyroid enlargement. No LNs CARDIOVASCULAR: S1, S2 regular.systolic murmur RESPIRATION: Breath sounds diminished in the bases. Occasional Scattered rhonchi , no crackles. No wheezing. ABDOMEN: Soft, nondistended, nontender . No guarding. Bowel sounds heard. LEGS: No edema. no swelling. No clubbing, no cyanosis. No calf tenderness. PSYCHIATRY: Alert and oriented X3, mood and affect normal. NERVOUS SYSTEM: Cranial N 2-12 grossly normal. Moves all 4 limbs. Diffuse weakness No focal deficits. Strength and sensation grossly intact. - Labs CBC & Chem 7: 07/17/19 04:26 07/17/19 04:26 Labs: Abnormal Lab Results - Last 24 Hours (Table) 07/17/19 07/17/19 07/17/19 Range/Units 04:26 04:26 04:26 WBC 11.1 H (3.8-10.6) k/uL RBC 3.59 L (4.30-5.90) m/uL Hgb 11.3 L (13.0-17.5) gm/dL Hct 34.9 L (39.0-53.0) % D-Dimer (<0.60) mg/L FEU BUN 21 H (9-20) mg/dL Glucose 125 H (74-99) mg/dL POC Glucose (mg/dL) (75-99) mg/dL AST 66 H (17-59) U/L ALT 109 H (21-72) U/L Total Creatine Kinase 345 H (55-170) U/L CK-MB (CK-2) 2.6 H (0.0-2.4) ng/mL Troponin I (0.000-0.034) ng/mL 07/17/19 07/17/19 07/17/19 Range/Units 05:40 11:20 13:32 WBC (3.8-10.6) k/uL RBC (4.30-5.90) m/uL Hgb (13.0-17.5) gm/dL Hct (39.0-53.0) % D-Dimer 0.89 H (<0.60) mg/L FEU BUN (9-20) mg/dL Glucose (74-99) mg/dL POC Glucose (mg/dL) 132 H (75-99) mg/dL AST (17-59) U/L ALT (21-72) U/L Total Creatine Kinase 431 H (55-170) U/L CK-MB (CK-2) 10.1 H (0.0-2.4) ng/mL Troponin I 0.800 H* (0.000-0.034) ng/mL Microbiology - Last 24 Hours (Table) 07/15/19 18:08 Blood Culture - Preliminary Blood No Growth after 24 hours Assessment and Plan Assessment: -Chest pressure ,Possible acute NSTEMI -Left bundle branch block, possibly new -PE ruled out. -Possible Bilateral basilar scarring, atelectasis, new bilateral lower lobe sirena ear opacity as per CTA. Pulmonary following. -Left lower quadrant abdominal pain, Rectus sheath-large hematoma 7 x 9 cm. -Acute Bronchitis -Hypertension -Acute renal failure -Prostate disorder -Hypothyroidism -Anemia secondary to hematoma -Hyperkalemia -Possible acute UTI -Leukocytosis -Chronic nicotine dependence Plan: Continue on current medication regime ,monitoring and symptomatic treatm ent. Evaluated by cardiology, transferred to telemetry unit. Serial troponins. No heparin secondary to hematoma as per surgery. Aspirin, beta ramirez ,nitrates, statin added to med regime. Echo ordered. Close monitoring of hemoglobin, renal function with repeat labs ordered for a.m. Pulmonary consulted regarding CTA. Prognosis guarded given multiple complex medical issues. The impression and plan of care has been dictated as directed. : I performed a history and examination of this patient, discussed the same with the dictator. I agree with the dictator's note ,documented as a scribe. Any additional findings or plans will be noted.
[2019-07-18] MEDS: LEVOTHYROXINE 100 MCG TAB PO SCH (05:16)
[2019-07-18 06:45] LABS: HCT 28.8 % (39.0-53.0); MCH 31.8 pg (25.0-35.0); MCHC 33.5 g/dL (31.0-37.0); Platelet Count 231 k/uL (150-450); RBC 3.03 m/uL (4.30-5.90); RDW 13.2 % (11.5-15.5); WBC 10.1 k/uL (3.8-10.6)
[2019-07-18 06:55] LABS: HGB 9.6 gm/dL (13.0-17.5)
[2019-07-18] MEDS: ATORVASTATIN 40 MG TAB PO SCH (08:51)
[2019-07-18] MEDS: ISOSORBIDE MONONITRATE ER 30 MG TAB.ER.24H PO SCH (08:51)
[2019-07-18] MEDS: METOPROLOL TARTRATE 50 MG TAB PO SCH ×2 (08:52→20:47)
[2019-07-18] MEDS: DOCUSATE 100 MG CAP PO SCH ×2 (08:52→20:47)
[2019-07-18] MEDS: ASPIRIN 81 MG PO SCH (08:53)
--- NOTE | 2019-07-18 11:44 | ECHOF ---
Referral Reason:cp MEASUREMENTS -------- HEIGHT: 172.7 cm WEIGHT: 74.8 kg BP: IVSd: 1.1 cm (0.6 - 1.1) LVIDd: 5.1 cm (3.9 - 5.3) LVPWd: 1.2 cm (0.6 - 1.1) IVSs: 1.4 cm LVIDs: 4.5 cm LVPWs: 1.0 cm LAESV Index (A-L): 47.40 ml/m Ao Diam: 2.6 cm (2.0 - 3.7) AV Cusp: 1.8 cm (1.5 - 2.6) LA Diam: 4.5 cm (2.7 - 3.8) MV EXCURSION: 19.604 mm (> 18.000) MV EF SLOPE: 100 mm/s (70 - 150) EPSS: 2.2 cm AR PHT: 607 ms RAP: 5.00 mmHg RVSP: 42.78 mmHg TAPSE: 30.13 mm FINDINGS -------- Sinus rhythm. This was a technically difficult study with suboptimal views. The left ventricular size is normal. Left ventricular wall thickness is normal. There is severe g lobal hypokinesis of LV . Overall left ventricular systolic function is severely impaired with, an EF between 25 - 30 %. Increased LAP. Grade 3 Diastolic Dysfunction. The right ventricle is normal in size. The right ventricular systolic function is normal. LA is severely dilated >40 ml/m2 The right atrial size is normal. 5.0mg of Lumason was utilized for enhancement of images The aortic valve is trileaflet and appears structurally normal. There is mild aortic regurgitation. The mitral valve is normal. The mitral valve leaflets are mildly thickened. Mild mitral regurgita tion is present. The tricuspid valve appears structurally normal. Mild tricuspid regurgitation present. There is m ild pulmonary hypertension. The right ventricular systolic pressure, as measured by Doppler, is 42. 78mmHg. There is no pulmonic regurgitation present. The aortic root size is normal. IVC Not well visulized. There is no pericardial effusion. CONCLUSIONS -------- 1. Sinus rhythm. 2. This was a technically difficult study with suboptimal views. 3. The left ventricular size is normal. 4. Left ventricular wall thickness is normal. 5. There is severe global hypokinesis of LV . 6. Overall left ventricular systolic function is severely impaired with, an EF between 25 - 30 %. 7. Increased LAP. Grade 3 Diastolic Dysfunction. 8. The right ventricle is normal in size. 9. The right ventricular systolic function is normal. 10. LA is severely dilated >40 ml/m2 11. The right atrial size is normal. 12. 5.0mg of Lumason was utilized for enhancement of images 13. The aortic valve is trileaflet and appears structurally normal. 14. There is mild aortic regurgitation. 15. The mitral valve is normal. 16. The mitral valve leaflets are mildly thickened. 17. Mild mitral regurgitation is present. 18. The tricuspid valve appears structurally normal. 19. Mild tricuspid regurgitation present. 20. There is mild pulmonary hypertension. 21. The right ventricular systolic pressure, as measured by Doppler, is 42.78mmHg. 22. There is no pulmonic regurgitation present. 23. The aortic root size is normal. 24. IVC Not well visulized. 25. There is no pericardial effusion. PATTERN GATER: Rachael Lazaro RDCS
--- NOTE | 2019-07-18 12:20 | P.PN ---
Subjective Progress Note Date: 07/18/19 Principal diagnosis: Dyspnea, abdominal pain This is a very pleasant 79-year-old gentleman who follows with Dr. Rueda as his primary care physician. He has a history of hypothyroidism, hypertension, enlarged prostate, self catheterizations. He also has a 50+ year daily by s moking history. He denies any history of COPD, asthma. No action at home. No inhalers at home. Approximately a week ago he developed flulike symptoms with cough congestion and fatigue. Yesterday he was having significant lower abdominal discomfort while coughing and presented to the emergency room for the same. Computed tomography scan of the abdomen revealed a large 7 x 9 cm hematoma within the left rectus abdominis muscle extending from the epigastric region to the iliac crest from neurology and bellicose around towards the piercing a region in the subcutaneous tissue superficial to the peritoneal surface. No intraperitoneal extension was noted. Hemoglobin 11.5. He was subsequently admitted and was doing well. Earlier this morning he developed increasing shortness of breath continued cough and congestion. O2 saturation dropped to 92% and was placed on supplemental oxygen 2 L/m per nasal cannula. CT angiogram ruled out pulmonary embolism. There is some bilateral lower lobe linear opacities suggestive of atelectasis versus scarring. No acute processes. He's been initiated and DuoNeb inhalations and Tessalon Perles. He is seen today in consultation on the regular medical floor. He is having some chest discomfort mainly with coughing. White count 11.1. Hemoglobin 11.3. Creatinine 1.03. Troponin 0.024, 0.80. AST 66, ALT 109. Echocardiogram is pending. Blood cultures reveal no growth to date. On 07/18/2019 patient seen in follow-up on selective care unit, he is resting comfortably in bed, he is in no acute distress, he states his coughing has significantly improved, he only coughs occasionally, does not bring up any sputum, no chest congestion, no chest pain, no wheezing, lung sounds are clear to auscultation, his abdominal binder in place, some soreness to his abdominal wall in that. Umbilical area, and there is small amount of bruising in the. Umbilical area, no other bruising was noted. Abdomen is soft. Her pulse ox is 96%, no fever or chills. Today's labs have been reviewed showing white blood cell count of 10.1, hemoglobin of 9.6, patient's third troponin came back at 2.650. Cardiology is following, echocardiogram showed severe global hypokinesis of left ventricle, with an EF between 25 and 30%, mild tricuspid regurgitation, mild pulmonary hypertension with PA systolic of 42 mmHg. Objective - Vital Signs Vital signs: Vital Signs Temp 98.2 F 07/18/19 11:31 Pulse 81 07/18/19 12:00 Resp 18 07/18/19 12:00 BP 109/68 07/18/19 11:31 Pulse Ox 96 07/18/19 11:31 Intake & Output 07/17/19 07/18/19 07/18/19 18:59 06:59 18:59 Intake Total 360 462 240 Output Total 700 Balance -340 462 240 Weight 76.5 kg Intake: Oral 360 462 240 Output: Urine 700 Other: Voiding Method Self-Catheterization # Voids 1 1 # Bowel Movements 2 - Exam GENERAL EXAM: Alert, pleasant, 79-year-old white male comfortable in no apparent distress. HEAD: Normocephalic/atraumatic. EYES: Normal reaction of pupils, equal size. Conjunctiva pink, sclera white. NOSE: Clear with pink turbinates. THROAT: No erythema or exudates. NECK: No masses, no JVD, no thyroid enlargement, no adenopathy. CHEST: No chest wall deformity. Symmetrical expansion. LUNGS: Equal air entry with no crackles, wheeze, rhonchi or dullness. CVS: Regular rate and rhythm, normal S1 and S2, no gallops, no murmurs, no rubs ABDOMEN: Soft, nontender. No hepatosplenomegaly, normal bowel sounds, no guardi ng or rigidity. Abdominal binder is on, she reports some mild soreness around the periumbilical area, and there is minimal bruising around his umbilical area EXTREMITIES: No clubbing, no edema, no cyanosis, 2+ pulses and upper and lower extremities. MUSCULOSKELETAL: Muscle strength and tone normal. SPINE: No scoliosis or deformity SKIN: No rashes CENTRAL NERVOUS SYSTEM: Alert and oriented -3. No focal deficits, tone is normal in all 4 extremities. PSYCHIATRIC: Alert and oriented -3. Appropriate affect. Intact judgment and insight. - Labs CBC & Chem 7: 07/18/19 06:13 07/17/19 04:26 Labs: Abnormal Lab Results - Last 24 Hours (Table) 07/17/19 07/17/19 07/17/19 Range/Units 11:20 13:32 17:20 RBC (4.30-5.90) m/uL Hgb (13.0-17.5) gm/dL Hct (39.0-53.0) % D-Dimer 0.89 H (<0.60) mg/L FEU CK-MB (CK-2) 10.1 H (0.0-2.4) ng/mL Troponin I 0.800 H* 2.650 H* (0.000-0.034) ng/mL 07/18/19 Range/Units 06:13 RBC 3.03 L (4.30-5.90) m/uL Hgb 9.6 L D (13.0-17.5) gm/dL Hct 28.8 L (39.0-53.0) % D-Dimer (<0.60) mg/L FEU CK-MB (CK-2) (0.0-2.4) ng/mL Troponin I (0.000-0.034) ng/mL Microbiology - Last 24 Hours (Table) 07/15/19 18:08 Blood Culture - Preliminary Blood No Growth after 48 hours Assessment and Plan Plan: Assessment: #1 Left lower quadrant abdominal pain secondary to large 7 x 9 cm hematoma within the left rectus abdominis muscle extending from the epigastric region to the iliac crest and nearly the umbilicus around towards the paraspinal region in the subcutaneous tissue superficial to the peritoneal surface. No intraperitoneal extension identified. #2 Recent upper respiratory infection with a excessive coughing and subsequent abdominal discomfort. CT angiogram ruled out pulmonary embolism. There is some atelectasis versus scarring in the lung bases only. #3 Chest pain mainly with coughing and small troponin leak. Echocardiogram pending. #4 Enlarged prostate. Self catheterization. #5 Hypertension. #6 Hypothyroidism. #7 severely impaired left ventricular systolic function with an EF of 25 and 30%, mild mitral regurg, mild tricuspid regurg, and mild pulmonary hypertension with PA systolic of 42.7 mmHg, possibly related to non-ST elevated myocardial infarction Plan: Patient denies any shortness of breath, denies any chest pain, his cough has improved, vital signs are stable, no fever or chills. Echocardiogram has been noted, patient was found to have severely impaired left ventricle systolic function, with EF of 25-30%, possibility of non-ST elevated myocardial infarction. Cardiology is following, from pulmonary perspective patient is stable, we will follow the patient on as-needed basis I performed a history & physical examination of the patient and discussed their management with my nurse practitioner, Mary Bonilla. I reviewed the nurse practitioner's note and agree with the documented findings and plan of care. Lung sounds are positive for clear breath sounds. The findings and the impression was discussed with the patient. I attest to the documentation by the nurse practitioner. Time with Patient: Less than 30
--- NOTE | 2019-07-18 14:17 | P.PN ---
Subjective Progress Note Date: 07/18/19 CHIEF COMPLAINT: Abdominal pain HISTORY OF PRESENT ILLNESS: Patient examined at the bedside. He denies abdominal pain. Tolerating diet without nausea or vomiting. Hemoglobin 9.6. PHYSICAL EXAM: VITAL SIGNS: Reviewed. GENERAL: Well-developed in no acute distress. HEENT: No sclera icterus. Extraocular movements grossly intact. Moist buccal mucosa. Head is atraumatic, normocephalic. ABDOMEN: Soft. Nondistended. Nontender. NEUROLOGIC: Alert and oriented. Cranial nerves II through XII grossly intact. ASSESSMENT: 1. Rectus sheath hematoma, measuring 7 x 9 cm 2. Recent upper respiratory infection PLAN: 1. Monitor hemoglobin. Repeat CBC in AM 2. Diet as tolerated 3. Abdominal binder for additional support 4. No surgical intervention required 5. Cardiology is following for abnormal troponins. No IV heparin at this time due to rectus sheath hematoma. Nurse practitioner note has been reviewed by physician. Signing provider agrees with the documented findings, assessment, and plan of care. Objective - Vital Signs Vital signs: Vital Signs Temp 98.2 F 07/18/19 11:31 Pulse 81 07/18/19 12:00 Resp 18 07/18/19 12:00 BP 109/68 07/18/19 11:31 Pulse Ox 96 07/18/19 11:31 Intake & Output 07/17/19 07/18/19 07/18/19 18:59 06:59 18:59 Intake Total 360 462 480 Output Total 700 Balance -340 462 480 Weight 76.5 kg Intake: Oral 360 462 480 Output: Urine 700 Other: Voiding Method Self-Catheterization # Voids 1 1 # Bowel Movements 2 - Labs CBC & Chem 7: 07/18/19 06:13 07/17/19 04:26 Labs: Abnormal Lab Results - Last 24 Hours (Table) 07/17/19 07/18/19 Range/Units 17:20 06:13 RBC 3.03 L (4.30-5.90) m/uL Hgb 9.6 L D (13.0-17.5) gm/dL Hct 28.8 L (39.0-53.0) % Troponin I 2.650 H* (0.000-0.034) ng/mL Microbiology - Last 24 Hours (Table) 07/15/19 18:08 Blood Culture - Preliminary Blood No Growth after 48 hours
--- NOTE | 2019-07-18 14:55 | P.PN ---
Subjective Progress Note Date: 07/18/19 This is a pleasant 79-year-old male past medical history significant for hypertension and chronic nicotine dependence. He denies prior history of coronary artery disease and does not follow with a wellness specialist for any reason. Cardiology consultation was originally requested because of chest discomfort and abnormal EKG. Prior to presentation to the hospital patient had been coughing for over a week, upon arrival here the CT of the abdomen was obtained which revealed a 7 x 9 cm hematoma in the abdominal wall. Patients EKG demonstrated left bundle-branch block pattern, also developed subsequent chest discomfort. Troponins were also drawn which came back to be 0.0-4, 0.8, 2.6. AST 66, ALT 109. Hemoglobin today 9.6. Patient was seen and examined this morning, remains in a normal sinus rhythm at this time. Denies having any chest discomfort. Echocardiogram with Doppler study was performed which revealed an ejection fraction of 25-30%. Patient is currently on a baby aspirin daily, Lipitor 40 mg daily, Imdur 30 mg daily, metoprolol 50 mg one tablet by mouth twice a day, Because of the reduced LV function we will also start the patient on a low-dose SHAD inhibitor. Objective - Vital Signs Vital signs: Vital Signs Temp 98.2 F 07/18/19 11:31 Pulse 81 07/18/19 12:00 Resp 18 07/18/19 12:00 BP 109/68 07/18/19 11:31 Pulse Ox 96 07/18/19 11:31 Intake & Output 07/17/19 07/18/19 07/18/19 18:59 06:59 18:59 Intake Total 360 462 480 Output Total 700 Balance -340 462 480 Weight 76.5 kg Intake: Oral 360 462 480 Output: Urine 700 Other: Voiding Method Self-Catheterization # Voids 1 1 # Bowel Movements 2 - Exam GENERAL EXAM: Alert, very pleasant 79-year-old gentleman, on 2 L nasal cannula, fairly comfortable in no apparent distress. HEAD: Normocephalic. EYES: Normal reaction of pupils, equal size. NOSE: Clear with pink turbinates. THROAT: No erythema or exudates. NECK: No masses, no JVD. CHEST: No chest wall deformity. LUNGS: Equal air entry with no crackles, wheeze, rhonchi or dullness. CVS: S1 and S2 normal with no audible murmur, regular rhythm. ABDOMEN: Palpable abdominal hematoma. SPINE: No scoliosis or deformity SKIN: No rashes CENTRAL NERVOUS SYSTEM: No focal deficits, tone is normal in all 4 extremities. EXTREMITIES: There is no peripheral edema. No clubbing, no cyanosis. Peripheral pulses are intact. - Labs CBC & Chem 7: 07/18/19 06:13 07/17/19 04:26 Labs: Abnormal Lab Results - Last 24 Hours (Table) 07/17/19 07/18/19 Range/Units 17:20 06:13 RBC 3.03 L (4.30-5.90) m/uL Hgb 9.6 L D (13.0-17.5) gm/dL Hct 28.8 L (39.0-53.0) % Troponin I 2.650 H* (0.000-0.034) ng/mL Microbiology - Last 24 Hours (Table) 07/15/19 18:08 Blood Culture - Preliminary Blood No Growth after 48 hours Assessment and Plan Plan: Impression: #1 Left lower quadrant abdominal pain secondary to large 7 x 9 cm hematoma within the left rectus abdominis muscle extending from the epigastric region to the iliac crest and nearly the umbilicus around towards the paraspinal region in the subcutaneous tissue superficial to the peritoneal surface. No intraperitoneal extension identified. #2 Recent upper respiratory infection with a excessive coughing and subsequent abdominal discomfort. CT angiogram ruled out pulmonary embolism. There is some atelectasis versus scarring in the lung bases only. #3 Chest pain with abnormality in troponin, possible acute coronary syndrome. Echo revealed an ejection fraction of 25-30%. #4 Enlarged prostate. Self catheterization. #5 Hypertension. #6 Hypothyroidism. Plan We will add a small dose of SHAD inhibitor to the patient's medication regime. Continue to follow along with you. Once the patient is stable, he will need to undergo cardiac catheterization to rule out underlying coronary artery disease. DNP note has been reviewed, I agree with a documented findings and plan of care. Patient was seen and examined.
--- NOTE | 2019-07-18 15:30 | CDI ---
Documentation Clarification Form Date: 07/18/2019 3:11:20 PM From: Alma Eid RN, CCDS Admit Date: 07/17/2019 12:42:00 PM Patient Name: Will Perez Visit Number: [id number] Discharge Date: ATTENTION: The Clinical Documentation Specialists (CDI) and [facility] Coding Staff appreciate your assistance in clarifying documentation. Please respond to the clarification below the line at the bottom and electronically sign. The CDI & [facility] Coding staff will review the response and follow-up if needed. Please note: Queries are made part of the Legal Health Record. If you have any questions, please contact the author of this message via ITS. Dr. Nathan Rueda A diagnosis of anemia lacks specificity to accurately reflect your patients severity of condition and clarification is needed. History/Risk Factors: Chronic urinary retention, Hypertension, Prostate Disorder, current every day smoker Clinical indicators: 79-year-old male present with abdominal wall hematoma. He relates to significant coughing. He denies any blood thinners, Motrin, aspirin, etc. Hemoglobin: 14.6 11.9, 11.5, 11.3 Hematocrit: 44, [address] scan abdomen and pelvis 7x9 cm hematoma, left rectus abdominal muscles Treatment: Monitoring CBC Surgical consultation: Monitor hemoglobin, abdominal binder for additional support. No surgical intervention required In order to capture the severity of condition, please clarify the type of anemia and etiology if known: Acute blood loss anemia Unable to determine Other, please specify (Last Revision: June 2017) MTDD
--- NOTE | 2019-07-18 17:56 | P.PN ---
Subjective Progress Note Date: 07/18/19 Principal diagnosis: Left lower quadrant pain due to left-sided rectus sheath hematoma, acute blood loss anemia, upper respiratory infection, chest pain, prostate enlargement, hype rtension hypertensive cardiovascular disease, hypothyroidism 07/18/2019, patient seen eval examined care plan discussed with the patient at length about findings on the abdomen labs reviewed medications reviewed This is a pleasant 79-year-old male past medical history significant for hypertension and chronic nicotine dependence. Prior to presentation to the hospital patient had been coughing for over a week, upon arrival here the CT of the abdomen was obtained which revealed a 7 x 9 cm hematoma in the abdominal wall. Patients EKG demonstrated left bundle-branch block pattern, also developed subsequent chest discomfort. Troponins were also drawn which came back to be 0.0-4, 0.8, 2.6. AST 66, ALT 109. Hemoglobin today 9.6. Patient was seen and examined this morning, remains in a normal sinus rhythm at this time. Denies having any chest discomfort. Echocardiogram with Doppler study was performed which revealed an ejection fraction of 25-30%. Patient is currently on a baby aspirin daily, Lipitor 40 mg daily, Imdur 30 mg daily, metoprolol 50 mg one tablet by mouth twice a day, Because of the reduced LV function we will also start the patient on a low-dose SHAD inhibitor. Objective - Vital Signs Vital signs: Vital Signs Temp 98.2 F 07/18/19 11:31 Pulse 81 07/18/19 15:35 Resp 18 07/18/19 15:35 BP 109/68 07/18/19 11:31 Pulse Ox 96 07/18/19 11:31 Intake & Output 07/17/19 07/18/19 07/18/19 18:59 06:59 18:59 Intake Total 360 462 480 Output Total 700 800 Balance -340 462 -320 Weight 76.5 kg Intake: Oral 360 462 480 Output: Urine 700 800 Other: Voiding Method Self-Catheterization # Voids 1 1 2 # Bowel Movements 2 - Exam GENERAL EXAM: Alert, very pleasant 79-year-old gentleman, on 2 L nasal cannula, fairly comfortable in no apparent distress. HEAD: Normocephalic. EYES: Normal reaction of pupils, equal size. NOSE: Clear with pink turbinates. THROAT: No erythema or exudates. NECK: No masses, no JVD. CHEST: No chest wall deformity. LUNGS: Equal air entry with no crackles, wheeze, rhonchi or dullness. CVS: S1 and S2 normal with no audible murmur, regular rhythm. ABDOMEN: Palpable abdominal hematoma. SPINE: No scoliosis or deformity SKIN: No rashes CENTRAL NERVOUS SYSTEM: No focal deficits, tone is normal in all 4 extremities. EXTREMITIES: There is no peripheral edema. No clubbing, no cyanosis. Peripheral pulses are intact. - Labs CBC & Chem 7: 07/18/19 06:13 07/17/19 04:26 Labs: Abnormal Lab Results - Last 24 Hours (Table) 07/17/19 07/18/19 Range/Units 17:20 06:13 RBC 3.03 L (4.30-5.90) m/uL Hgb 9.6 L D (13.0-17.5) gm/dL Hct 28.8 L (39.0-53.0) % Troponin I 2.650 H* (0.000-0.034) ng/mL Microbiology - Last 24 Hours (Table) 07/15/19 18:08 Blood Culture - Preliminary Blood No Growth after 48 hours Assessment and Plan Assessment: (Abdominal pain Large left-sided 9 cm rectus sheath hematoma Acute on chronic systolic heart failure with ejection fraction 20-25% Upper respiratory infection Acute bronchitis Prostate enlargement Hypertension hypertensive cardiovascular disease Plan: Continue following hemoglobin closely Adjustment of antihypertensive agents Continue breathing treatment Optimize medical therapy for Chronic systolic heart failure Time with Patient: Greater than 30
[2019-07-19] MEDS: LEVOTHYROXINE 100 MCG TAB PO SCH (05:20)
[2019-07-19 06:46] LABS: HCT 29.4 % (39.0-53.0); MCH 32.1 pg (25.0-35.0); MCHC 34.1 g/dL (31.0-37.0); MCV 94.3 fL (80.0-100.0); Mean Platelet Volume 6.9; Platelet Count 242 k/uL (150-450); RBC 3.12 m/uL (4.30-5.90); RDW 13.3 % (11.5-15.5); WBC 9.4 k/uL (3.8-10.6)
[2019-07-19] MEDS: DOCUSATE 100 MG CAP PO SCH ×2 (09:13→20:19)
[2019-07-19] MEDS: ISOSORBIDE MONONITRATE ER 30 MG TAB.ER.24H PO SCH (09:13)
[2019-07-19] MEDS: ATORVASTATIN 40 MG TAB PO SCH (09:13)
[2019-07-19] MEDS: ASPIRIN 81 MG PO SCH (09:13)
[2019-07-19] MEDS: METOPROLOL TARTRATE 50 MG TAB PO SCH (09:13)
[2019-07-19] MEDS: METOPROLOL SUCCINATE (ER) 100 MG TAB.ER.24H PO SCH (13:00)
--- NOTE | 2019-07-19 13:48 | P.PN ---
Subjective Patient resting comfortably in bed No dizziness lightheadedness or palpitations He has an abdominal wall hematoma Denies chest pain looks very comfortable Blood pressure 140/70 149/90 mmHg pulse rate in the 70s and 80s, afebrile Breath sounds are clear no rhonchi no crackles Heart sounds were S2 are soft was Extremity days warm Impression Patient will initially admitted with abnormal troponins possible acute coronary syndrome, chest pain Left Abram systolic function reduced, 30% Hypertension Large hematoma, abdominal wall Medical treatment was recommended at this point Suggest Continue aspirin and atorvastatin Continue Imdur He is on metoprolol succinate 100 mg by mouth daily Increase losartan to 50 g by mouth daily Once the hematoma resolves invasive coronary angiography should be considered Objective - Vital Signs Vital signs: Vital Signs Temp 98 F 07/19/19 11:19 Pulse 75 07/19/19 11:19 Resp 18 07/19/19 11:19 BP 140/71 07/19/19 11:19 Pulse Ox 95 07/19/19 11:19 Intake & Output 07/18/19 07/19/19 07/19/19 18:59 06:59 18:59 Intake Total 924 240 480 Output Total 800 Balance 124 240 480 Weight 78.8 kg Intake: Oral 924 240 480 Output: Urine 800 Other: Voiding Method Self-Catheterization Self-Catheterization Self-Catheterization # Voids 2 1 # Bowel Movements 2 - Labs CBC & Chem 7: 07/19/19 06:25 07/17/19 04:26 Labs: Abnormal Lab Results - Last 24 Hours (Table) 07/19/19 Range/Units 06:25 RBC 3.12 L (4.30-5.90) m/uL Hgb 10.0 L (13.0-17.5) gm/dL Hct 29.4 L (39.0-53.0) % Microbiology - Last 24 Hours (Table) 07/18/19 22:30 Urine Culture - Preliminary Urine,Catheterized 07/15/19 18:08 Blood Culture - Preliminary Blood No Growth after 72 hours
--- NOTE | 2019-07-19 15:55 | P.PN ---
Subjective Progress Note Date: 07/19/19 CHIEF COMPLAINT: Abdominal pain HISTORY OF PRESENT ILLNESS: Patient examined at the bedside. He denies abdominal pain. Tolerating diet without nausea or vomiting. Hemoglobin 10.0 PHYSICAL EXAM: VITAL SIGNS: Reviewed. GENERAL: Well-developed in no acute distress. HEENT: No sclera icterus. Extraocular movements grossly intact. Moist buccal mucosa. Head is atraumatic, normocephalic. ABDOMEN: Soft. Nondistended. Nontender. NEUROLOGIC: Alert and oriented. Cranial nerves II through XII grossly intact. ASSESSMENT: 1. Rectus sheath hematoma, measuring 7 x 9 cm 2. Recent upper respiratory infection 3. NSTEMI PLAN: 1. Monitor hemoglobin. Repeat CBC in AM 2. Diet as tolerated 3. Abdominal binder for additional support 4. No surgical intervention required 5. Cardiology is following for abnormal troponins. No IV heparin at this time due to rectus sheath hematoma. 6. Patients at bedside. First encounter meeting patients as she has not been in the room at any other evaluation since his hospitalization when surgery team has rounded. Patients very upset regarding overall plan of care and requesting transfer to [facility]. Dr. Green notified. Nurse practitioner note has been reviewed by physician. Signing provider agrees with the documented findings, assessment, and plan of care. Objective - Vital Signs Vital signs: Vital Signs Temp 98 F 07/19/19 11:19 Pulse 75 07/19/19 11:19 Resp 18 07/19/19 11:19 BP 140/71 07/19/19 11:19 Pulse Ox 95 07/19/19 11:19 Intake & Output 07/18/19 07/19/19 07/19/19 18:59 06:59 18:59 Intake Total 924 240 480 Output Total 800 Balance 124 240 480 Weight 78.8 kg Intake: Oral 924 240 480 Output: Urine 800 Other: Voiding Method Self-Catheterization Self-Catheterization Self-Catheterization # Voids 2 1 # Bowel Movements 2 - Labs CBC & Chem 7: 07/19/19 06:25 07/17/19 04:26 Labs: Abnormal Lab Results - Last 24 Hours (Table) 07/19/19 Range/Units 06:25 RBC 3.12 L (4.30-5.90) m/uL Hgb 10.0 L (13.0-17.5) gm/dL Hct 29.4 L (39.0-53.0) % Microbiology - Last 24 Hours (Table) 07/18/19 22:30 Urine Culture - Preliminary Urine,Catheterized 07/15/19 18:08 Blood Culture - Preliminary Blood No Growth after 72 hours
--- NOTE | 2019-07-19 16:21 | P.PN ---
Subjective Progress Note Date: 07/19/19 Principal diagnosis: Left lower quadrant pain due to left-sided rectus sheath hematoma, acute blood loss anemia, upper respiratory infection, chest pain, prostate enlargement, hype rtension hypertensive cardiovascular disease, hypothyroidism 07/19/2019, patient seen and evaluated examined during the rounds he is sitting upright on the chair his family is at bedside including his she wants him to be transferred to [facility] as fuel cell assembler over here recommended t o do a cardiac cath angiogram in 2 weeks instead of stat basis, patient is being monitor observe for rectus sheath hematoma and elevated troponins, as per family wishes we'll proceed with transfer to [facility] where she has a physician data entry clerk has been notified 07/18/2019, patient seen eval examined care plan discussed with the patient at length about findings on the abdomen labs reviewed medications reviewed This is a pleasant 79-year-old male past medical history significant for hypertension and chronic nicotine dependence. Prior to presentation to the hospital patient had been coughing for over a week, upon arrival here the CT of the abdomen was obtained which revealed a 7 x 9 cm hematoma in the abdominal wall. Patients EKG demonstrated left bundle-branch block pattern, also developed subsequent chest discomfort. Troponins were also drawn which came back to be 0.0-4, 0.8, 2.6. AST 66, ALT 109. Hemoglobin today 9.6. Patient was seen and examined this morning, remains in a normal sinus rhythm at this time. Denies having any chest discomfort. Echocardiogram with Doppler study was performed which revealed an ejection fraction of 25-30%. Patient is currently on a baby aspirin daily, Lipitor 40 mg daily, Imdur 30 mg daily, metoprolol 50 mg one tablet by mouth twice a day, Because of the reduced LV function we will also start the patient on a low-dose SHAD inhibitor. Objective - Vital Signs Vital signs: Vital Signs Temp 98 F 07/19/19 11:19 Pulse 75 07/19/19 11:19 Resp 18 07/19/19 11:19 BP 140/71 07/19/19 11:19 Pulse Ox 95 07/19/19 11:19 Intake & Output 07/18/19 07/19/19 07/19/19 18:59 06:59 18:59 Intake Total 924 240 480 Output Total 800 Balance 124 240 480 Weight 78.8 kg Intake: Oral 924 240 480 Output: Urine 800 Other: Voiding Method Self-Catheterization Self-Catheterization Self-Catheterization # Voids 2 1 # Bowel Movements 2 - Exam GENERAL EXAM: Alert, very pleasant 79-year-old gentleman, on 2 L nasal cannula, fairly comfortable in no apparent distress. HEAD: Normocephalic. EYES: Normal reaction of pupils, equal size. NOSE: Clear with pink turbinates. THROAT: No erythema or exudates. NECK: No masses, no JVD. CHEST: No chest wall deformity. LUNGS: Equal air entry with no crackles, wheeze, rhonchi or dullness. CVS: S1 and S2 normal with no audible murmur, regular rhythm. ABDOMEN: Palpable abdominal hematoma. SPINE: No scoliosis or deformity SKIN: No rashes CENTRAL NERVOUS SYSTEM: No focal deficits, tone is normal in all 4 extremities. EXTREMITIES: There is no peripheral edema. No clubbing, no cyanosis. Peripheral pulses are intact. - Labs CBC & Chem 7: 07/19/19 06:25 07/17/19 04:26 Labs: Abnormal Lab Results - Last 24 Hours (Table) 07/19/19 Range/Units 06:25 RBC 3.12 L (4.30-5.90) m/uL Hgb 10.0 L (13.0-17.5) gm/dL Hct 29.4 L (39.0-53.0) % Microbiology - Last 24 Hours (Table) 07/18/19 22:30 Urine Culture - Preliminary Urine,Catheterized 07/15/19 18:08 Blood Culture - Preliminary Blood No Growth after 72 hours Assessment and Plan Assessment: Non-ST segment elevated IN Elevated troponin Abdominal pain Large left-sided 9 cm rectus sheath hematoma Acute on chronic systolic heart failure with ejection fraction 20-25% Upper respiratory infection Acute bronchitis Prostate enlargement Hypertension hypertensive cardiovascular disease Plan: Transferred to [facility] per patient and family request Continue following hemoglobin closely Adjustment of antihypertensive agents Continue breathing treatment Optimize medical therapy for Chronic systolic heart failure Time with Patient: Greater than 30
--- NOTE | 2019-07-19 16:24 | P.DS ---
Providers Date of admission: 07/17/19 12:42 Expected date of discharge: 07/19/19 Attending physician: Nathan Rueda Consults: 07/15/19 21:32 Consult Physician Routine Consulting Provider: Zachary Ernst Consult Reason/Comments: Abdominal wall hematoma Do you want consulting provider notified?: Already Contacted 07/17/19 10:21 Consult Physician Urgent Consulting Provider: Luis Mcmanus Consult Reason/Comments: abnormal ekg's,CP Do you want consulting provider notified?: Yes 07/17/19 12:29 Consult Physician Routine Consulting Provider: Peter Linn Consult Reason/Comments: CT;New bilateral LL linear opacity Do you want consulting provider notified?: Yes Primary care physician: [facility] Course: For details please refer to my detailed progress note, due to rectus sheath hematoma heparin cannot be given troponins are elevated, patient requested transfer to an [facility] [place] Procedures: Computed tomography scan of the abdominal pelvis computed tomography scan of the chest Patient Condition at Discharge: Critical Plan - Discharge Summary Discharge Rx Participant: No New Discharge Prescriptions: No Action Diltiazem Cd [Cardizem Cd] 180 mg PO DAILY Levothyroxine Sodium [Synthroid] 100 mcg PO DAILY Ergocalciferol [Vitamin D2] 50,000 unit PO FR guaiFENesin-DM 100-10MG/5ML [Robitussin DM] 10 ml PO Q6H PRN PRN Reason: Cough Dm/Acetaminophen/Doxylamine [Vicks Nyquil Cold-Flu Liquid] 10 ml PO Q6H PRN PRN Reason: Cough Discharge Medication List Diltiazem Cd [Cardizem Cd] 180 mg PO DAILY 04/12/16 [History] Ergocalciferol [Vitamin D2] 50,000 unit PO FR 04/12/16 [History] Levothyroxine Sodium [Synthroid] 100 mcg PO DAILY 04/12/16 [History] Dm/Acetaminophen/Doxylamine [Vicks Nyquil Cold-Flu Liquid] 10 ml PO Q6H PRN 07/15/19 [History] guaiFENesin-DM 100-10MG/5ML [Robitussin DM] 10 ml PO Q6H PRN 07/15/19 [History] Follow up Appointment(s)/Referral(s): Doris Covarrubias, NPC [Nurse Practitioner] - 11/07/19 3:00 pm () Nathan Rueda MD [Primary Care Provider] - 07/25/19 1:00 pm () Dominic Conroy MD [STAFF PHYSICIAN] - 08/02/19 1:15 pm (Monday) Activity/Diet/Wound Care/Special Instructions: Pending cardiology clearance and DC recommendations
[2019-07-19] MEDS ORDERED: LOSARTAN 50 MG TAB PO SCH (21:00)
[2019-07-19] MEDS ORDERED: LOSARTAN 25 MG TAB PO SCH (21:00)
[2019-07-20] MEDS: LEVOTHYROXINE 100 MCG TAB PO SCH (05:54)
[2019-07-20] MEDS: DOCUSATE 100 MG CAP PO SCH (09:03)
[2019-07-20] MEDS: METOPROLOL SUCCINATE (ER) 100 MG TAB.ER.24H PO SCH (09:03)
[2019-07-20] MEDS: ISOSORBIDE MONONITRATE ER 30 MG TAB.ER.24H PO SCH (09:03)
[2019-07-20] MEDS: BENZONATATE 100 MG CAP PO PRN (09:03)
[2019-07-20] MEDS: ASPIRIN 81 MG PO SCH (09:03)
[2019-07-20] MEDS: ATORVASTATIN 40 MG TAB PO SCH (09:03)
--- NOTE | 2019-07-20 11:21 | P.PN ---
Subjective Progress Note Date: 07/20/19 Principal diagnosis: Rectus sheath hematoma Patient doing well today. Denies abdominal pain. No fevers. Tolerating diet. Hemoglobin 10 yesterday. Objective - Vital Signs Vital signs: Vital Signs Temp 97.8 F 07/20/19 02:58 Pulse 89 07/20/19 02:58 Resp 18 07/20/19 02:58 BP 152/73 07/20/19 02:58 Pulse Ox 98 07/20/19 02:58 Intake & Output 07/19/19 07/20/19 07/20/19 18:59 06:59 18:59 Intake Total 840 360 Balance 840 360 Weight 77.8 kg Intake: Oral 840 360 Other: Voiding Method Self-Catheterization Self-Catheterization # Voids 1 1 - Exam Abdomen: Soft, nondistended, mild left-sided tenderness - Labs CBC & Chem 7: 07/19/19 06:25 07/17/19 04:26 Labs: Microbiology - Last 24 Hours (Table) 07/18/19 22:30 Urine Culture - Preliminary Urine,Catheterized Coagulase Negative Staph 07/15/19 18:08 Blood Culture - Preliminary Blood No Growth after 96 hours Assessment and Plan (1) Abdominal wall hematoma Narrative/Plan: Patient doing fairly well at this time. We'll sign off. Please call if needed. Current Visit: Yes Status: Acute Code(s): S30.1XXA - CONTUSION OF ABDOMINAL WALL, INITIAL ENCOUNTER SNOMED Code(s): 058171661
[2019-07-20 11:58] VITALS: RESP 14
[2019-07-20 16:05] VITALS: BP 135/90; PULSE 75; TEMP 98.2
== END 2019-07-20 17:49 | disposition short-term general hospital (02) | DRG 555 ==
LOC: EC 16:29 → 4MS4W 21:10 → OBSVTOIN 07-17 12:42 → 3SCARD 07-17 14:09
PROVIDERS: ADMIT Family Medicine; ATTEND Family Medicine
DX: M79.81 Nontraumatic hematoma of soft tissue (principal); I21.4 Non-ST elevation (NSTEMI) myocardial infarction; I50.23 Acute on chronic systolic (congestive) heart failure; D62 Acute posthemorrhagic anemia; N17.9 Acute kidney failure, unspecified; E03.9 Hypothyroidism, unspecified; F17.200 Nicotine dependence, unspecified, uncomplicated; E87.5 Hyperkalemia; E11.9 Type 2 diabetes mellitus without complications; I08.1 Rheumatic disorders of both mitral and tricuspid valves; K59.00 Constipation, unspecified; I44.7 Left bundle-branch block, unspecified; I25.10 Atherosclerotic heart disease of native coronary artery without angina pectoris; I27.20 Pulmonary hypertension, unspecified; N40.0 Benign prostatic hyperplasia without lower urinary tract symptoms; I11.0 Hypertensive heart disease with heart failure; J20.9 Acute bronchitis, unspecified; Z79.899 Other long term (current) drug therapy; Z79.890 Hormone replacement therapy; Z90.49 Acquired absence of other specified parts of digestive tract; Z98.890 Other specified postprocedural states; Z86.19 Personal history of other infectious and parasitic diseases; Z79.82 Long term (current) use of aspirin
CPT/HCPCS: 36415; 71046; 71275; 74177; 80053; 80061; 81001; 82150; 82550; 82553; 83605; 83690; 84484; 85025; 85027; 85379; 87040; 87077; 87086; 87186; 93005; 93306; 94640; 96361; 96374; 96375; 96376; 99285

== ENCOUNTER 2020-04-18 15:40 | Inpatient (IN) | payer MEDICARE ==
[2020-04-18] MEDS ORDERED: SODIUM CHLORIDE 0.9% 500 ML 500 ML IV STA (15:48)
--- NOTE | 2020-04-18 15:57 | ED ---
General Adult HPI - General Chief complaint: Syncope Stated complaint: Syncope Time Seen by Provider: 04/18/20 15:44 Source: patient, EMS, RN notes reviewed, old records reviewed Mode of arrival: EMS Limitations: no limitations - History of Present Illness Initial comments: 79-year-old male presents for evaluation of fall and subsequent syncopal episode . Patient was out in the sun today helping his son remove the decking off of a porch. He had slipped on a broken board and fell onto his tailbone. He was taken into the house and was placed in a chair where he momentarily lost consciousness. Is unconscious for one or 2 minutes. Upon EMS arrival patient was pale. EKG was sinus rhythm by EMS. Initial blood pressure was stable. Patient did not want be transported to the hospital but was encouraged by EMS to present for evaluation. He states he had been drinking only Pepsi, no food or water throughout the day. He was working hard in the sun. He denies preceding chest pain or palpitations. Denies dyspnea. He has no complaints the time my evaluation. He is on blood thinners, no reported head trauma. - Related Data Home Medications Medication Instructions Recorded Confirmed Diltiazem Cd [Cardizem Cd] 180 mg PO DAILY 04/12/16 07/15/19 Ergocalciferol [Vitamin D2] 50,000 unit PO FR 04/12/16 07/15/19 Levothyroxine Sodium [Synthroid] 100 mcg PO DAILY 04/12/16 07/15/19 Dm/Acetaminophen/Doxylamine [Vicks 10 ml PO Q6H PRN 07/15/19 07/15/19 Nyquil Cold-Flu Liquid] guaiFENesin-DM 100-10MG/5ML 10 ml PO Q6H PRN 07/15/19 07/15/19 [Robitussin DM] Previous Rx's Medication Instructions Recorded Cephalexin [Keflex] 500 mg PO Q12HR #20 cap 04/18/20 Allergies Allergy/AdvReac Type Severity Reaction Status Date / Time No Known Allergies Allergy Verified 04/18/20 15:52 Review of Systems ROS Statement: Those systems with pertinent positive or pertinent negative responses have been documented in the HPI. ROS Other: All systems not noted in ROS Statement are negative. Past Medical History Past Medical History: Hypertension, Prostate Disorder, Thyroid Disorder Additional Past Medical History / Comment(s): hx polyps, constipation, enlarged prostate History of Any Multi-Drug Resistant Organisms: None Reported Past Surgical History: Cholecystectomy, Heart Catheterization With Stent, Hernia Repair Past Anesthesia/Blood Transfusion Reactions: No Reported Reaction Past Psychological History: No Psychological Hx Reported Smoking Status: Former smoker Past Alcohol Use History: Occasional Past Drug Use History: None Reported - Past Family History Mother Family Medical History: No Reported History General Exam Limitations: no limitations General appearance: alert, in no apparent distress Head exam: Present: atraumatic, normocephalic Eye exam: Present: normal appearance, PERRL, EOMI ENT exam: Present: mucous membranes dry Neck exam: Present: normal inspection. Absent: tenderness, meningismus Respiratory exam: Present: normal lung sounds bilaterally. Absent: respiratory distress, wheezes Cardiovascular Exam: Present: regular rate, normal rhythm GI/Abdominal exam: Present: soft. Absent: distended, tenderness, guarding Extremities exam: Present: normal inspection, normal capillary refill. Absent: pedal edema, calf tenderness Back exam: Present: normal inspection, full ROM. Absent: tenderness, vertebral tenderness Neurological exam: Present: alert, oriented X3. Absent: motor sensory deficit Psychiatric exam: Present: normal affect, normal mood Skin exam: Present: warm, dry, intact. Absent: cyanosis, diaphoretic Course Vital Signs 04/18/20 04/18/20 15:48 16:50 Temperature 97.4 F L 97.9 F Pulse Rate 68 77 Respiratory 18 18 Rate Blood Pressure 174/83 158/81 O2 Sat by Pulse 96 99 Oximetry EKG Findings - EKG Comments: EKG Findings:: EKG: Sinus rhythm with PVC, age indeterminant inferior infarct, no acute ST segment elevation, rate of 68, NM interval 164, QRS duration 92, QTC 438 Medical Decision Making - Medical Decision Making 79-year-old male with minor trauma, dehydration, syncope. Head CT is obtained and this is negative for intracranial hemorrhage or mass effect, cervical CT showing osteoarthritis with no acute fracture or dislocation. Chest x-ray negative for acute cardiopulmonary disease, x-ray of the pelvis is negative for acute bony abnormality. Patient has a normal CBC, normal CMP with the exception of a mildly elevated serum creatinine of 1.46, baseline of 1. This likely secondary to dehydration from being out of the sun and not drinking much today. Urinalysis does show 14 white cells with occasional bacteria, this will be cultured and patient will be covered with Keflex. Patient is eager for discharge, he will maintain oral hydration at home. He will return with any worsening or changing symptoms. He does not want to be admitted to the hospital at this time. He is able to emergency department, stable on his feet, without any lightheadedness or near syncope. - Lab Data Result diagrams: 04/18/20 15:49 04/18/20 15:49 Lab Results 04/18/20 04/18/20 04/18/20 Range/Units 15:49 15:49 15:49 WBC 8.7 (3.8-10.6) k/uL RBC 4.39 (4.30-5.90) m/uL Hgb 13.3 (13.0-17.5) gm/dL Hct 41.3 (39.0-53.0) % MCV 94.2 (80.0-100.0) fL MCH 30.2 (25.0-35.0) pg MCHC 32.1 (31.0-37.0) g/dL RDW 13.4 (11.5-15.5) % Plt Count 181 (150-450) k/uL Neutrophils % 66 % Lymphocytes % 22 % Monocytes % 6 % Eosinophils % 3 % Basophils % 1 % Neutrophils # 5.7 (1.3-7.7) k/uL Lymphocytes # 1.9 (1.0-4.8) k/uL Monocytes # 0.5 (0-1.0) k/uL Eosinophils # 0.3 (0-0.7) k/uL Basophils # 0.1 (0-0.2) k/uL PT 10.8 (9.0-12.0) sec INR 1.0 (<1.2) APTT 23.8 (22.0-30.0) sec Sodium 135 L (137-145) mmol/L Potassium 4.2 (3.5-5.1) mmol/L Chloride 105 (98-107) mmol/L Carbon Dioxide 22 (22-30) mmol/L Anion Gap 8 mmol/L BUN 22 H (9-20) mg/dL Creatinine 1.46 H (0.66-1.25) mg/dL Est GFR (CKD-EPI)AfAm 51 (>60 ml/min/1.73 sqM) Est GFR (CKD-EPI)NonAf 45 (>60 ml/min/1.73 sqM) Glucose 140 H (74-99) mg/dL Calcium 9.0 (8.4-10.2) mg/dL Magnesium 2.0 (1.6-2.3) mg/dL Total Bilirubin 0.9 (0.2-1.3) mg/dL AST 30 (17-59) U/L ALT 18 (4-49) U/L Alkaline Phosphatase 46 (38-126) U/L Troponin I (0.000-0.034) ng/mL Total Protein 6.7 (6.3-8.2) g/dL Albumin 4.1 (3.5-5.0) g/dL Urine Color Urine Appearance (Clear) Urine pH (5.0-8.0) Ur Specific [place] (1.001-1.035) Urine Protein (Negative) Urine Glucose (UA) (Negative) Urine Ketones (Negative) Urine Blood (Negative) Urine Nitrite (Negative) Urine Bilirubin (Negative) Urine Urobilinogen (<2.0) mg/dL Ur Leukocyte Esterase (Negative) Urine RBC (0-5) /hpf Urine WBC (0-5) /hpf Ur Squamous Epith Cells (0-4) /hpf Urine Bacteria (None) /hpf Hyaline Casts (0-2) /lpf Urine Mucus (None) /hpf 04/18/20 04/18/20 Range/Units 15:49 16:57 WBC (3.8-10.6) k/uL RBC (4.30-5.90) m/uL Hgb (13.0-17.5) gm/dL Hct (39.0-53.0) % MCV (80.0-100.0) fL MCH (25.0-35.0) pg MCHC (31.0-37.0) g/dL RDW (11.5-15.5) % Plt Count (150-450) k/uL Neutrophils % % Lymphocytes % % Monocytes % % Eosinophils % % Basophils % % Neutrophils # (1.3-7.7) k/uL Lymphocytes # (1.0-4.8) k/uL Monocytes # (0-1.0) k/uL Eosinophils # (0-0.7) k/uL Basophils # (0-0.2) k/uL PT (9.0-12.0) sec INR (<1.2) APTT (22.0-30.0) sec Sodium (137-145) mmol/L Potassium (3.5-5.1) mmol/L Chloride (98-107) mmol/L Carbon Dioxide (22-30) mmol/L Anion Gap mmol/L BUN (9-20) mg/dL Creatinine (0.66-1.25) mg/dL Est GFR (CKD-EPI)AfAm (>60 ml/min/1.73 sqM) Est GFR (CKD-EPI)NonAf (>60 ml/min/1.73 sqM) Glucose (74-99) mg/dL Calcium (8.4-10.2) mg/dL Magnesium (1.6-2.3) mg/dL Total Bilirubin (0.2-1.3) mg/dL AST (17-59) U/L ALT (4-49) U/L Alkaline Phosphatase (38-126) U/L Troponin I 0.014 (0.000-0.034) ng/mL Total Protein (6.3-8.2) g/dL Albumin (3.5-5.0) g/dL Urine Color Yellow Urine Appearance Clear (Clear) Urine pH 5.5 (5.0-8.0) Ur Specific [place] 1.015 (1.001-1.035) Urine Protein Negative (Negative) Urine Glucose (UA) Negative (Negative) Urine Ketones Negative (Negative) Urine Blood Negative (Negative) Urine Nitrite Negative (Negative) Urine Bilirubin Negative (Negative) Urine Urobilinogen <2.0 (<2.0) mg/dL Ur Leukocyte Esterase Small H (Negative) Urine RBC 7 H (0-5) /hpf Urine WBC 14 H (0-5) /hpf Ur Squamous Epith Cells <1 (0-4) /hpf Urine Bacteria Rare H (None) /hpf Hyaline Casts 14 H (0-2) /lpf Urine Mucus Few H (None) /hpf Disposition Clinical Impression: Dehydration, Syncope, UTI (urinary tract infection) Disposition: HOME SELF-CARE Condition: Fair Instructions (If sedation given, give patient instructions): Syncope (ED), Dehydration (ED), Urinary Tract Infection in Men (ED) Prescriptions: Cephalexin [Keflex] 500 mg PO Q12HR #20 cap Is patient prescribed a controlled substance at d/c from ED?: No Referrals: Nathan Rueda MD [Primary Care Provider] - 1-2 days Time of Disposition: 17:29
[2020-04-18 16:13] LABS: Basophils # (A) 0.1 k/uL (0-0.2); Basophils % (A) 1 %; Eosinophils # (A) 0.3 k/uL (0-0.7); Eosinophils % (A) 3 %; HCT 41.3 % (39.0-53.0); HGB 13.3 gm/dL (13.0-17.5); Lymphocytes # (A) 1.9 k/uL (1.0-4.8); Lymphocytes % (A) 22 %; MCH 30.2 pg (25.0-35.0); MCHC 32.1 g/dL (31.0-37.0); MCV 94.2 fL (80.0-100.0); Mean Platelet Volume 8.2; Monocytes # (A) 0.5 k/uL (0-1.0); Monocytes % (A) 6 %; Neutrophils # (A) 5.7 k/uL (1.3-7.7); Neutrophils % (A) 66 %; Platelet Count 181 k/uL (150-450); RBC 4.39 m/uL (4.30-5.90); RDW 13.4 % (11.5-15.5); WBC 8.7 k/uL (3.8-10.6)
[2020-04-18 16:24] LABS: Partial Thromboplastin Time 23.8 sec (22.0-30.0); Prothrombin Time 10.8 sec (9.0-12.0)
[2020-04-18 16:35] LABS: Albumin 4.1 g/dL (3.5-5.0); Potassium 4.2 mmol/L (3.5-5.1); Total Bilirubin 0.9 mg/dL (0.2-1.3); Total Protein 6.7 g/dL (6.3-8.2)
--- NOTE | 2020-04-18 16:36 | CT ---
EXAMINATION TYPE: CT brain ellen burks con DATE OF EXAM: 04/18/2020 COMPARISON: None HISTORY: Fall today with syncopal episode and possible injury CT DLP: 1448.9 mGycm Automated exposure control for dose reduction was used. There is cerebral cortical atrophy. There is no mass effect nor midline shift. There is no sign of in tracranial hemorrhage. The calvarium is intact. Cervical vertebra have normal alignment. There is moderate narrowing of disc spaces from C3 to C7 wit h some ankylotic change at C6-7. There is fusion anomaly apparently at C7-T1. There is multilevel cer vical facet arthropathy. I see no fracture. The skull base is intact. There is normal aeration of the temporal bones. There is debris in the right side external auditory canal. IMPRESSION: Moderately severe multilevel spondylotic changes in the cervical spine. No fracture seen. Cerebral atrophy. No acute intracranial abnormality.
--- NOTE | 2020-04-18 16:37 | XR ---
EXAMINATION TYPE: XR pelvis AP view DATE OF EXAM: 04/18/2020 COMPARISON: NONE HISTORY: Pain TECHNIQUE: Single view FINDINGS: Pelvic ring appears intact. Proximal femurs are intact. Sacroiliac joints appear normal. IMPRESSION: Negative exam. No fracture.
--- NOTE | 2020-04-18 16:38 | XR ---
EXAMINATION TYPE: XR chest 2V DATE OF EXAM: 04/18/2020 COMPARISON: 07/16/2019 HISTORY: Syncope TECHNIQUE: FINDINGS: Heart and mediastinum are within normal limits. Lungs are clear of infiltrate. There is spu rring in the thoracic spine. There are no hilar masses. Costophrenic angles are clear. IMPRESSION: No active cardiopulmonary disease. Normal heart. No change.
[2020-04-18 17:14] LABS: Appearance,Urine Clear (Clear); Bacteria,Urine Rare /hpf; Bilirubin,Urine Negative (Negative); Blood,Urine Negative (Negative); Color,Urine Yellow; Glucose,Urine (UA) Negative (Negative); Hyaline Casts,Urine 14 /lpf (0-2); Ketones,Urine Negative (Negative); Leukocyte Esterase,Urine Small (Negative); Mucus,Urine Few /hpf; Nitrite,Urine Negative (Negative); PH, Urine 5.5 (5.0-8.0); Protein,Urine Negative (Negative); RBC,Urine 7 /hpf (0-5); Specific Gravity,Urine 1.015 (1.001-1.035); Squamous Epithelial Cell,Urine <1 /hpf (0-4); Urobilinogen,Urine <2.0 mg/dL (<2.0); WBC,Urine 14 /hpf (0-5)
[2020-04-18] MEDS ORDERED: ATROPINE SULFATE 0.1 MG/ML 10ML SYRINGE IV STA (17:41)
[2020-04-18] MEDS ORDERED: ACETAMINOPHEN TAB 325 MG TAB PO PRN (18:17)
[2020-04-18] MEDS ORDERED: NALOXONE 0.4 MG/ML 1 ML VIAL IV PRN (18:17)
--- NOTE | 2020-04-18 18:17 | ED ---
Medical Decision Making - Lab Data Result diagrams: 04/18/20 15:49 04/18/20 15:49 Lab Results 04/18/20 04/18/20 04/18/20 Range/Units 15:49 15:49 15:49 WBC 8.7 (3.8-10.6) k/uL RBC 4.39 (4.30-5.90) m/uL Hgb 13.3 (13.0-17.5) gm/dL Hct 41.3 (39.0-53.0) % MCV 94.2 (80.0-100.0) fL MCH 30.2 (25.0-35.0) pg MCHC 32.1 (31.0-37.0) g/dL RDW 13.4 (11.5-15.5) % Plt Count 181 (150-450) k/uL Neutrophils % 66 % Lymphocytes % 22 % Monocytes % 6 % Eosinophils % 3 % Basophils % 1 % Neutrophils # 5.7 (1.3-7.7) k/uL Lymphocytes # 1.9 (1.0-4.8) k/uL Monocytes # 0.5 (0-1.0) k/uL Eosinophils # 0.3 (0-0.7) k/uL Basophils # 0.1 (0-0.2) k/uL PT 10.8 (9.0-12.0) sec INR 1.0 (<1.2) APTT 23.8 (22.0-30.0) sec Sodium 135 L (137-145) mmol/L Potassium 4.2 (3.5-5.1) mmol/L Chloride 105 (98-107) mmol/L Carbon Dioxide 22 (22-30) mmol/L Anion Gap 8 mmol/L BUN 22 H (9-20) mg/dL Creatinine 1.46 H (0.66-1.25) mg/dL Est GFR (CKD-EPI)AfAm 51 (>60 ml/min/1.73 sqM) Est GFR (CKD-EPI)NonAf 45 (>60 ml/min/1.73 sqM) Glucose 140 H (74-99) mg/dL Calcium 9.0 (8.4-10.2) mg/dL Magnesium 2.0 (1.6-2.3) mg/dL Total Bilirubin 0.9 (0.2-1.3) mg/dL AST 30 (17-59) U/L ALT 18 (4-49) U/L Alkaline Phosphatase 46 (38-126) U/L Troponin I (0.000-0.034) ng/mL Total Protein 6.7 (6.3-8.2) g/dL Albumin 4.1 (3.5-5.0) g/dL Urine Color Urine Appearance (Clear) Urine pH (5.0-8.0) Ur Specific [place] (1.001-1.035) Urine Protein (Negative) Urine Glucose (UA) (Negative) Urine Ketones (Negative) Urine Blood (Negative) Urine Nitrite (Negative) Urine Bilirubin (Negative) Urine Urobilinogen (<2.0) mg/dL Ur Leukocyte Esterase (Negative) Urine RBC (0-5) /hpf Urine WBC (0-5) /hpf Ur Squamous Epith Cells (0-4) /hpf Urine Bacteria (None) /hpf Hyaline Casts (0-2) /lpf Urine Mucus (None) /hpf 04/18/20 04/18/20 Range/Units 15:49 16:57 WBC (3.8-10.6) k/uL RBC (4.30-5.90) m/uL Hgb (13.0-17.5) gm/dL Hct (39.0-53.0) % MCV (80.0-100.0) fL MCH (25.0-35.0) pg MCHC (31.0-37.0) g/dL RDW (11.5-15.5) % Plt Count (150-450) k/uL Neutrophils % % Lymphocytes % % Monocytes % % Eosinophils % % Basophils % % Neutrophils # (1.3-7.7) k/uL Lymphocytes # (1.0-4.8) k/uL Monocytes # (0-1.0) k/uL Eosinophils # (0-0.7) k/uL Basophils # (0-0.2) k/uL PT (9.0-12.0) sec INR (<1.2) APTT (22.0-30.0) sec Sodium (137-145) mmol/L Potassium (3.5-5.1) mmol/L Chloride (98-107) mmol/L Carbon Dioxide (22-30) mmol/L Anion Gap mmol/L BUN (9-20) mg/dL Creatinine (0.66-1.25) mg/dL Est GFR (CKD-EPI)AfAm (>60 ml/min/1.73 sqM) Est GFR (CKD-EPI)NonAf (>60 ml/min/1.73 sqM) Glucose (74-99) mg/dL Calcium (8.4-10.2) mg/dL Magnesium (1.6-2.3) mg/dL Total Bilirubin (0.2-1.3) mg/dL AST (17-59) U/L ALT (4-49) U/L Alkaline Phosphatase (38-126) U/L Troponin I 0.014 (0.000-0.034) ng/mL Total Protein (6.3-8.2) g/dL Albumin (3.5-5.0) g/dL Urine Color Yellow Urine Appearance Clear (Clear) Urine pH 5.5 (5.0-8.0) Ur Specific [place] 1.015 (1.001-1.035) Urine Protein Negative (Negative) Urine Glucose (UA) Negative (Negative) Urine Ketones Negative (Negative) Urine Blood Negative (Negative) Urine Nitrite Negative (Negative) Urine Bilirubin Negative (Negative) Urine Urobilinogen <2.0 (<2.0) mg/dL Ur Leukocyte Esterase Small H (Negative) Urine RBC 7 H (0-5) /hpf Urine WBC 14 H (0-5) /hpf Ur Squamous Epith Cells <1 (0-4) /hpf Urine Bacteria Rare H (None) /hpf Hyaline Casts 14 H (0-2) /lpf Urine Mucus Few H (None) /hpf Critical Care Time Critical Care Time: Yes Total Critical Care Time: 35 Disposition Clinical Impression: Dehydration, Syncope, UTI (urinary tract infection) Disposition: ADMITTED IP TO THIS [facility] Condition: Stable Instructions (If sedation given, give patient instructions): Dehydration (ED), Urinary Tract Infection in Men (ED), Syncope (ED) Prescriptions: Cephalexin [Keflex] 500 mg PO Q12HR #20 cap Referrals: Nathan Rueda MD [Primary Care Provider] - 1-2 days Decision to Admit Reason: Admit from EC Decision Date: 04/11/20 Decision Time: 18:17
[2020-04-18] MEDS: CLOPIDOGREL 75 MG TAB PO SCH (21:24)
[2020-04-18] MEDS: ATORVASTATIN 20 MG TAB PO SCH (21:24)
[2020-04-18] MEDS: SODIUM CHLORIDE 0.9% 1,000 ML IV SCH (21:26)
[2020-04-19] MEDS: LEVOTHYROXINE 125 MCG TAB PO SCH (06:14)
[2020-04-19] MEDS: ASPIRIN 81 MG PO SCH (09:10)
--- NOTE | 2020-04-19 13:55 | P.CRDCN ---
History of Present Illness History of present illness: This is Arti Quintanilla PA-C dictating a consult on this patient The patient was interviewed and examined by me as well as by Dr. Flores Case discussed with Dr. Flores and he agrees with the plan of care HPI Patient is an 79-year-old male with a history of hypertension, smoker, CAD status post stenting, cardiomyopathy who presented after syncopal episode. The patient follows with a livestock haulier at [facility], he is unsure of the name. He states he was helping his son and grandson to tear out a deck when he stepped through a broken piece of wood and fell alf through the deck. He did not pass out. His son lifted him out and was brought into the kitchen. They gave him water. He does not recall feeling any dizziness or palpitations chest pain or shortness of breath. According to his son he had a brief syncopal episode. The patient does not recall this. EMS evaluated the patient and according to the emergency room note the EKG showed sinus rhythm and his initial blood pressure was stable. They urged him to come to the emergency department for further evaluation. Head CT showed no acute intracranial abnormality. Pelvis x-ray showed no fracture. Chest x-ray showed no acute process. Initial EKG showed sinus mechanism with PVCs, Q waves inferiorly. They were getting ready to discharge him from the emergency department when he was sitting in the bed and had a presyncopal episode. He felt dizzy lightheaded and diaphoretic. He was found to be bradycardic and hypotensive. EKG showed sinus bradycardia with PVCs. Patient was given atropine and his heart rates improved. Heart rates are currently in the 80s. Patient seen and examined resting in bed. Denies any chest pain, shortness of breath, dizziness. No further presyncopal episodes. ROS: No fevers, chills or rigors, no cough, phlegm or expectoration, no nausea, vomiting or diarrhea, no hematuria, dysuria, Positive for hip pain, no strokes or seizures, no skin lesions. EXAMINATION: Patient is afebrile, pulse in the 80s, respirations 16, blood pressure 163/83, oxygen saturation 97% on room air patient seen and examined resting in bed in no acute distress Lungs are clear to auscultation bilaterally Heart is slightly irregular, no audible murmurs Mild lower extremity edema bilaterally REVIEW OF LABS, ECG & MEDICAL DATA WBC 8.7, hemoglobin 13.3, platelets 181, potassium 4.2, BUN 22, creatinine 1.46 Phone and negative TSH normal Previous echocardiogram showed EF 25-30% IMPRESSION / ASSESSMENT: #1 syncope, likely vasovagal in the setting of dehydration #2 symptomatic sinus bradycardia and hypotension, possibly vasovagal #3 CAD status post stenting #4 ischemic cardiomyopathy EF 25-30% by previous echo #4 hypertension PLAN: 2-D echocardiogram and Doppler studies have been ordered awaiting results Reduce Coreg to 3.125 twice a day Resume home dose of losartan, take at noon to avoid hypotension Have the patient ambulate in the hallways to make sure he doesn't have another episode and he can tolerate this dose of Coreg Monitor telemetry Past Medical History Past Medical History: Hypertension, Prostate Disorder, Thyroid Disorder Additional Past Medical History / Comment(s): hx polyps, constipation, enlarged prostate History of Any Multi-Drug Resistant Organisms: None Reported Past Surgical History: Cholecystectomy, Heart Catheterization With Stent, Hernia Repair Past Anesthesia/Blood Transfusion Reactions: No Reported Reaction Date of Last Stent Placement:: 05/2019 Past Psychological History: No Psychological Hx Reported Smoking Status: Former smoker Past Alcohol Use History: Occasional Additional Past Alcohol Use History / Comment(s): pipe use over past 50 yrs Past Drug Use History: None Reported - Past Family History Mother Family Medical History: No Reported History Medications and Allergies Home Medications Medication Instructions Recorded Confirmed Type Aspirin 81 mg PO DAILY 04/18/20 04/18/20 History Atorvastatin Calcium [Lipitor] 20 mg PO HS 04/18/20 04/18/20 History Carvedilol [Coreg] 6.25 mg PO BID 04/18/20 04/18/20 History Cephalexin [Keflex] 500 mg PO Q12HR #20 cap 04/18/20 Rx Clopidogrel [Plavix] 75 mg PO HS 04/18/20 04/18/20 History Levothyroxine Sodium [Synthroid] 125 mcg PO QAM 04/18/20 04/18/20 History Losartan Potassium [Cozaar] 25 mg PO HS 04/18/20 04/18/20 History Allergies Allergy/AdvReac Type Severity Reaction Status Date / Time No Known Allergies Allergy Verified 04/18/20 18:41 Physical Exam Vitals: Vital Signs Temp Pulse Pulse Pulse Pulse Pulse Resp 04/19/20 08:00 98.7 F 88 98 90 82 16 04/19/20 03:01 98 F 80 16 04/18/20 23:58 98 F 76 19 04/18/20 20:00 98.3 F 72 19 04/18/20 19:10 98.6 F 85 19 04/18/20 18:30 98.0 F 86 18 04/18/20 18:00 79 18 04/18/20 17:50 80 18 04/18/20 17:45 79 16 04/18/20 17:30 40 L 112 H 04/18/20 16:50 97.9 F 77 18 04/18/20 15:48 97.4 F L 68 18 BP BP BP BP BP Pulse Ox 04/19/20 08:00 163/83 170/72 148/69 97 04/19/20 03:01 129/62 145/80 156/81 98 04/18/20 23:58 165/74 99 04/18/20 20:00 135/61 100 04/18/20 19:10 144/71 100 04/18/20 18:30 108/90 100 04/18/20 18:00 130/68 100 04/18/20 17:50 103/62 96 04/18/20 17:45 87/58 97 04/18/20 17:30 123/73 98 04/18/20 16:50 158/81 99 04/18/20 15:48 174/83 96 Intake and Output 04/18/20 04/19/20 04/19/20 22:59 06:59 14:59 Intake Total 540 260 Balance 540 260 Intake: Oral 540 260 Other: Voiding Method Urinal Urinal Urinal # Voids 1 Weight 81.148 kg 84 kg Results 04/18/20 15:49 04/18/20 15:49 Cardiac Enzymes 04/18/20 04/18/20 Range/Units 15:49 15:49 AST 30 (17-59) U/L Troponin I 0.014 (0.000-0.034) ng/mL Coagulation 04/18/20 Range/Units 15:49 PT 10.8 (9.0-12.0) sec APTT 23.8 (22.0-30.0) sec CBC 04/18/20 Range/Units 15:49 WBC 8.7 (3.8-10.6) k/uL RBC 4.39 (4.30-5.90) m/uL Hgb 13.3 (13.0-17.5) gm/dL Hct 41.3 (39.0-53.0) % Plt Count 181 (150-450) k/uL Comprehensive Metabolic Panel 04/18/20 Range/Units 15:49 Sodium 135 L (137-145) mmol/L Potassium 4.2 (3.5-5.1) mmol/L Chloride 105 (98-107) mmol/L Carbon Dioxide 22 (22-30) mmol/L BUN 22 H (9-20) mg/dL Creatinine 1.46 H (0.66-1.25) mg/dL Glucose 140 H (74-99) mg/dL Calcium 9.0 (8.4-10.2) mg/dL AST 30 (17-59) U/L ALT 18 (4-49) U/L Alkaline Phosphatase 46 (38-126) U/L Total Protein 6.7 (6.3-8.2) g/dL Albumin 4.1 (3.5-5.0) g/dL Current Medications Generic Name Dose Route Start Last Admin Trade Name Freq PRN Reason Stop Dose Admin Acetaminophen 650 mg 04/18/20 18:17 Tylenol Tab PO Q6HR PRN Mild Pain or Fever > 100.5 Aspirin 81 mg 04/19/20 09:00 04/19/20 09:10 Aspirin PO 81 mg DAILY OBDULIA Administration Atorvastatin Calcium 20 mg 04/18/20 21:00 04/18/20 21:24 Lipitor PO 20 mg HS OBDULIA Administration Carvedilol 3.125 mg 04/19/20 17:30 Coreg PO BID-W/MEALS OBDULIA Clopidogrel Bisulfate 75 mg 04/18/20 21:00 04/18/20 21:24 Plavix PO 75 mg HS OBDULIA Administration Furosemide 10 mg 04/20/20 09:00 Lasix PO DAILY OBDULIA Sodium Chloride 1,000 mls @ 75 mls/hr 04/18/20 18:30 04/18/20 21:26 Saline 0.9% IV 75 mls/hr .[id number] OBDULIA Administration Levothyroxine Sodium 125 mcg 04/19/20 06:30 04/19/20 06:14 Synthroid PO 125 mcg QAM@0630 OBDULIA Administration Losartan Potassium 25 mg 04/19/20 14:00 Cozaar PO DAILY OBDULIA Naloxone HCl 0.2 mg 04/18/20 18:17 Narcan IV Q2M PRN Opioid Reversal Intake and Output 04/18/20 04/19/20 04/19/20 22:59 06:59 14:59 Intake Total 540 260 Balance 540 260 Intake: Oral 540 260 Other: Voiding Method Urinal Urinal Urinal # Voids 1 Weight 81.148 kg 84 kg 04/18/20 15:49 04/18/20 15:49
[2020-04-19] MEDS: LOSARTAN 25 MG TAB PO SCH (14:06)
[2020-04-19] MEDS: carvediloL 3.125 MG TAB PO SCH (16:47)
[2020-04-19] MEDS: SODIUM CHLORIDE 0.9% 1,000 ML IV SCH ×2 (19:32→23:59)
[2020-04-19] MEDS: CLOPIDOGREL 75 MG TAB PO SCH (19:32)
[2020-04-19] MEDS: ATORVASTATIN 20 MG TAB PO SCH (19:33)
--- NOTE | 2020-04-19 22:30 | HP ---
HISTORY AND PHYSICAL 79-year-old with history of hypertension, smoker, coronary artery disease, status post stenting, cardiomyopathy, he did not pass out. Gave him water. Did not feel getting dizzy or palpitation, shortness of breath, presyncopal episode. REVIEW OF SYSTEMS: Fourteen-point review of systems negative except for mentioned in HPI. He was bradycardic, hypertensive. He had PVCs. He was given atropine and heart rate increased. He was seen and examined by Cardiology today. Blood pressure 163/83, O2 97. Pulse 80s, respiratory 16 to 18, afebrile. Cardiovascular S1-S2. LUNGS: Clear. GI soft. Hematology negative Homans. Labs reviewed. ASSESSMENT: 1. Syncope, vasovagal. 2. Dehydration. 3. Sinus bradycardia. 4. Hypotension. 5. Coronary disease status post stent stenting. 6. Ischemic cardiomyopathy. 7. Hypertension. Cut down his blood pressure medicines. Increase fluids, take losartan at noon to avoid hypotension. Possible discharge home tomorrow. Cardiology cleared for discharge. MMODL / IJN: [id number] /
[2020-04-20 04:17] VITALS: RESP 19
[2020-04-20] MEDS: carvediloL 3.125 MG TAB PO SCH (06:11)
[2020-04-20] MEDS: LEVOTHYROXINE 125 MCG TAB PO SCH (06:11)
[2020-04-20] MEDS: LOSARTAN 25 MG TAB PO SCH (08:33)
[2020-04-20] MEDS: ASPIRIN 81 MG PO SCH (08:33)
[2020-04-20] MEDS ORDERED: FUROSEMIDE 10 MG TAB PO SCH (09:00)
--- NOTE | 2020-04-20 10:00 | ECHOF ---
Referral Reason:syncope MEASUREMENTS -------- HEIGHT: 170.2 cm WEIGHT: 81.2 kg BP: IVSd: 1.2 cm (0.6 - 1.1) LVIDd: 4.8 cm (3.9 - 5.3) LVPWd: 1.2 cm (0.6 - 1.1) IVSs: 1.4 cm LVIDs: 3.3 cm LVPWs: 1.4 cm LAESV Index (A-L): 47.47 ml/m IVSd: 1.0 cm (0.6 - 1.1) LVIDd: 5.1 cm (3.9 - 5.3) LVPWd: 0.9 cm (0.6 - 1.1) IVSs: 1.0 cm LVIDs: 4.3 cm LVPWs: 1.2 cm EDV(Teich): 126 ml ESV(Teich): 82 ml EF(Teich): 35 % %FS: 17 % SV(Teich): 44 ml Ao Diam: 3.1 cm (2.0 - 3.7) AV Cusp: 1.4 cm (1.5 - 2.6) LA Diam: 3.6 cm (2.7 - 3.8) MV EXCURSION: 15.965 mm (> 18.000) MV EF SLOPE: 97 mm/s (70 - 150) EPSS: 1.6 cm MV E Rohan: 0.78 m/s MV DecT: 155 ms MV A Rohan: 1.13 m/s MV E/A Ratio: 0.69 AR PHT: 314 ms RAP: 5.00 mmHg RVSP: 34.00 mmHg FINDINGS -------- Sinus rhythm with extra systolic beats. This was a technically adequate study. The left ventricular size is normal. There is mild concentric left ventricular hypertrophy. Overa ll left ventricular systolic function is low-normal with, an EF between 50 - 55 %. Increased LAP Gr irina 2 Diastolic Dysfunction. The right ventricle is normal in size. LA is severely dilated >40 ml/m2 The right atrial size is normal. Lumason used Interatrial and interventricular septum intact. The aortic valve is trileaflet and appears structurally normal. There is mild aortic regurgitation. The mitral valve is normal. The mitral valve leaflets are mildly thickened. Oewc-pa-kohfvazp mitr al regurgitation is present. The tricuspid valve appears structurally normal. Mild tricuspid regurgitation present. Right vent ricular systolic pressure is normal at < 35 mmHg. There is no pulmonic regurgitation present. The aortic root size is normal. Normal inferior vena cava with normal inspiratory collapse consistent with estimated right atrial pre ssure of 5 mmHg. There is no pericardial effusion. CONCLUSIONS -------- 1. Sinus rhythm with extra systolic beats. 2. This was a technically adequate study. 3. The left ventricular size is normal. 4. There is mild concentric left ventricular hypertrophy. 5. Overall left ventricular systolic function is low-normal with, an EF between 50 - 55 %. 6. Increased LAP Grade 2 Diastolic Dysfunction. 7. LA is severely dilated >40 ml/m2 8. Lumason used 9. Interatrial and interventricular septum intact. 10. There is mild aortic regurgitation. 11. The mitral valve leaflets are mildly thickened. 12. Bgyh-qb-bgfwoarf mitral regurgitation is present. 13. Mild tricuspid regurgitation present. CORRECTIONS CADET: Rachael Lazaro RDCS
[2020-04-20 12:18] VITALS: BP 146/69; PULSE 80; TEMP 98.3
[2020-04-20] MEDS: SODIUM CHLORIDE 0.9% 1,000 ML IV SCH (12:25)
--- NOTE | 2020-04-20 15:49 | PN ---
PROGRESS NOTE Will Perez is an 79-year-old gentleman that is admitted to hospital having had an episode of syncope. When he first presented, he was in sinus rhythm but was somewhat bradycardic and hypotensive. Subsequently, the heart rate has improved and has stayed the same. His echocardiogram showed an ejection fraction of 25%-30% on exam heart rate is 85 beats per minute. Blood pressure is 189/82, respiratory rate 18. Chest exam reveals good air entry bilaterally. Heart exam reveals first and second heart sounds. No gallop. Exam of extremities did not reveal any edema. Peripheral pulses are felt. ASSESSMENT: 1. Syncope, probably vasovagal. 2. Ischemic cardiomyopathy. 3. Coronary artery disease, status post angioplasty. 4. Hypertension. PLAN: I will continue the aspirin, Lipitor, Coreg, Plavix and Lasix that he is currently on. I am going to increase the dose of losartan to 50 mg for better blood pressure control. MMODL / IJN: [id number] /
[2020-04-21] MEDS ORDERED: LOSARTAN 50 MG TAB PO SCH (09:00)
--- NOTE | 2020-04-21 12:12 | CDI ---
Documentation Clarification Form Date: 04/21/20 From: Judy Rivera Phone: If you have a question about this query, please contact Rosi Miller, Rn Neonatal at [phone] between 8am and 5pm. Admit Date: 04/18/20 Discharge Date: 04/20/20 Patient Name: Will Perez Visit Number: [id number] ATTENTION: The Clinical Documentation Specialists (CDI) and [facility] Coding Staff appreciate your assistance in clarifying documentation. Please respond to the clarification below the line at the bottom and electronically sign. The CDI & [facility] Coding staff will review the response and follow-up if needed. Please note: Queries are made part of the Legal Health Record. If you have any questions, please contact the author of this message via ITS. Dear Dr. Rueda The diagnosis UTI was documented in the ED record, but is not noted in subsequent documentation. History/Risk Factors: Vasovagal syncope, hypotension, dehydration Clinical Indicators: Abnormal UA Vital signs: T. 97.4, P. 68, R. 18, BP 174/83 WBC: 8.7 Urinalysis: Leukocyte esterase small, RBC 7, WBC 14, bacteria rare Treatment: Patient on Keflex at home and went home on Keflex 500mg Please clarify if the UTI was Present/active this admission Treated and resolved this admission Ruled out Other, please specify Clinically unable to determine MTDD
--- NOTE | 2020-04-23 11:38 | CDI ---
Documentation Clarification Form Date: 04/22/20 From: Judy Rivera Phone: If you have a question about this query, please contact Rosi Miller, Event Decorator at [phone] between 8am and 5pm. Admit Date: 04/18/20 Discharge Date:04/20/20 Patient Name: Will Perez Visit Number: [id number] ATTENTION: The Clinical Documentation Specialists (CDI) and [facility] Coding Staff appreciate your assistance in clarifying documentation. Please respond to the clarification below the line at the bottom and electronically sign. The CDI & [facility] Coding staff will review the response and follow-up if needed. Please note: Queries are made part of the Legal Health Record. If you have any questions, please contact the author of this message via ITS. Dear Dr. Rueda Thank you for signing the previous query. Please document a response to this query before signing. The diagnosis UTI was documented in the ED record, but is not noted in subsequent documentation. History/Risk Factors: Vasovagal syncope, hypotension, dehydration Clinical Indicators: Abnormal UA Vital signs: T. 97.4, P. 68, R. 18, BP 174/83 WBC: 8.7 Urinalysis: Leukocyte esterase small, RBC 7, WBC 14, bacteria rare Treatment: Patient on Keflex at home and went home on Keflex 500mg Please clarify if the UTI was Present/active this admission Treated and resolved this admission Ruled out Other, please specify Clinically unable to determine MTDD
--- NOTE | 2020-04-24 07:30 | DS ---
DISCHARGE SUMMARY PLEASE ADD: Urinary tract infection, treated and resolved this admission. MMODL / IJN: [id number] /
== END 2020-04-20 16:08 | disposition home or self-care (01) | DRG 312 ==
LOC: EC 15:40 → 3SCARD 18:17
PROVIDERS: ADMIT Family Medicine; ATTEND Family Medicine
DX: R55 Syncope and collapse (principal); N39.0 Urinary tract infection, site not specified; I95.9 Hypotension, unspecified; E11.9 Type 2 diabetes mellitus without complications; E86.0 Dehydration; I10 Essential (primary) hypertension; I25.10 Atherosclerotic heart disease of native coronary artery without angina pectoris; I25.5 Ischemic cardiomyopathy; I49.3 Ventricular premature depolarization; N40.0 Benign prostatic hyperplasia without lower urinary tract symptoms; M25.559 Pain in unspecified hip; Z11.59 Encounter for screening for other viral diseases; E07.9 Disorder of thyroid, unspecified; Z79.82 Long term (current) use of aspirin; Z79.890 Hormone replacement therapy; Z79.899 Other long term (current) drug therapy; Z95.5 Presence of coronary angioplasty implant and graft; Z87.891 Personal history of nicotine dependence; Z90.49 Acquired absence of other specified parts of digestive tract; Z86.010 Personal history of colon polyps
CPT/HCPCS: 36415; 70450; 71046; 72125; 72170; 80053; 81001; 83735; 84443; 84484; 85025; 85610; 85730; 93005; 93306; 96361; 96374; 99291

== ENCOUNTER 2021-03-31 08:36 | Day surgery (SDC) | payer MEDICARE ==
[2021-03-26 15:09] VITALS: BMI 27.0
[~2021-03-31 08:36] MED LIST: LIDOCAINE 1% (10MG/ML) FOR IV START INTRADERMA PRN
[2021-03-31 08:57] VITALS: RESP 16; TEMP 98.3
[2021-03-31] MEDS: LACTATED RINGERS 1,000 ML IV SCH ×2 (09:15→09:40)
[2021-03-31] MEDS ORDERED: LIDOCAINE 1% INJ 10MG/ML (20 ML MDV) ONE (09:42)
[2021-03-31] MEDS ORDERED: PROPOFOL 10 MG/ML 20 ML VIAL IV ONE (09:42)
--- NOTE | 2021-03-31 09:59 | P.PCN ---
Date of Procedure: 03/31/21 Procedure(s) Performed: BRIEF HISTORY: Patient is a 80-year-old pleasant white male scheduled for an elective colonoscopy as a part of evaluation of intermittent rectal bleeding. He also has prior history of colon polyps. PROCEDURE PERFORMED: Colonoscopy with snare polypectomy. PREOPERATIVE DIAGNOSIS: Intermittent rectal bleeding and history of colon. IV sedation per Anesthesia. PROCEDURE: After informed consent was obtained, the patient, was brought into the endoscopy unit. IV sedation was administered by Anesthesia under continuous monitoring. Digital rectal examination was normal. Initially the Olympus CF-160 flexible video colonoscope was then inserted in the rectum, gradually advanced into the cecum without any difficulty. Careful examination was performed as the scope was gradually being withdrawn. Ileocecal valve and the appendiceal orifice were visualized and appeared normal. Prep was excellent. Mucosa of the cecum, ascending colon, transverse colon, appeared normal. In the descending colon there were 2 polyps measuring 5 mm in size both of which were removed by snare polypectomy. Scattered diffuse diverticulosis seen. Rest of the descending colon, sigmoid colon, and rectum appeared normal. Retroflexion was performed in the rectum and small internal hemorrhoids lesions were seen. The patient tolerated the procedure well. IMPRESSION: 5 mm 2 descending colon polyp status post polypectomy Scattered diffuse diverticulosis Small internal hemorrhoids Recommendations ; Findings of this examination were discussed with the patient as his family. he will follow with the biopsy results. He was advised to be a high-fiber diet and take fiber supplements a regular basis..
[2021-03-31 10:20] VITALS: BP 158/75; PULSE 70
== END 2021-03-31 10:36 | disposition home or self-care (01) ==
LOC: ORWHC2ENDO 08:36
PROVIDERS: ATTEND Internal Medicine Gastroenterology
DX: K62.5 Hemorrhage of anus and rectum (principal); K64.8 Other hemorrhoids; K57.90 Diverticulosis of intestine, part unspecified, without perforation or abscess without bleeding; D12.4 Benign neoplasm of descending colon; I25.10 Atherosclerotic heart disease of native coronary artery without angina pectoris; I10 Essential (primary) hypertension; Z95.5 Presence of coronary angioplasty implant and graft; N40.0 Benign prostatic hyperplasia without lower urinary tract symptoms; Z79.82 Long term (current) use of aspirin; Z79.899 Other long term (current) drug therapy; Z79.02 Long term (current) use of antithrombotics/antiplatelets
CPT/HCPCS: 88305; 45385; J2001; J2704

== ENCOUNTER 2023-07-01 13:24 | Inpatient (IN) | payer MEDICARE ==
--- NOTE | 2023-07-01 13:51 | ED ---
General Adult HPI - General Chief complaint: Extremity Problem,Nontraumatic Stated complaint: swollen feet/ankles Time Seen by Provider: 07/01/23 13:33 Source: patient, RN notes reviewed Mode of arrival: ambulatory Limitations: no limitations - History of Present Illness Initial comments: 83-year-old male with a past medical history significant for hypertension, hyperlipidemia presents emergency department with a chief complaint of bilateral lower extremity edema. Patient reports bilateral leg swelling that has progressively gotten worse for a month. He has been taking his medications as prescribed. He has a chronic cough. Denies any known fevers, chills, chest pain, nausea, vomiting, palpitations. Denies any injury or trauma or falls. - Related Data Home Medications Medication Instructions Recorded Confirmed Aspirin 81 mg PO DAILY 04/18/20 07/01/23 Clopidogrel [Plavix] 75 mg PO DAILY 04/18/20 07/01/23 Levothyroxine Sodium [Synthroid] 125 mcg PO DAILY 04/18/20 07/01/23 Atorvastatin Calcium [Lipitor] 40 mg PO DAILY 07/01/23 07/01/23 Losartan [Cozaar] 50 mg PO DAILY 07/01/23 07/01/23 Nystatin 100,000Unit/gm Cream 1 applic TOPICAL BID PRN 07/01/23 07/01/23 [Mycostatin Cream] carvediloL [Coreg] 12.5 mg PO BID 07/01/23 07/01/23 dexAMETHasone [Decadron] 6 mg PO DAILY 07/01/23 07/01/23 Allergies Allergy/AdvReac Type Severity Reaction Status Date / Time No Known Allergies Allergy Verified 07/01/23 16:26 Review of Systems ROS Statement: Those systems with pertinent positive or pertinent negative responses have been documented in the HPI. ROS Other: All systems not noted in ROS Statement are negative. Past Medical History Past Medical History: Coronary Artery Disease (CAD), Hypertension, Prostate Disorder, Thyroid Disorder Additional Past Medical History / Comment(s): hx polyps, constipation, pt thinks may have had heart attack 2 yrs ago, uses straight cath at home due to enlarged prostate History of Any Multi-Drug Resistant Organisms: None Reported Past Surgical History: Heart Catheterization With Stent, Hernia Repair Additional Past Surgical History / Comment(s): 3 cardiac stents, Past Anesthesia/Blood Transfusion Reactions: No Reported Reaction Date of Last Stent Placement:: 05/2019 Past Psychological History: No Psychological Hx Reported Smoking Status: Former smoker Past Alcohol Use History: None Reported Past Drug Use History: None Reported - Past Family History Mother Family Medical History: No Reported History General Exam - General Exam Comments Initial Comments: General: Alert, in no acute distress Head: atraumatic normocephalic. Eyes PERRL, EOMI intact, mucous membranes moist Respiratory: Lungs clear to auscultation bilaterally Cardiovascular: Heart rate regular rate and rhythm Abdominal: Soft without guarding or rebound Extremities: Normal inspection with full range of motion and normal capillary refill Neuroogic: alert and oriented 3, CN II-XII intact, able to ambulate with steady gait Skin: warm dry and intact with normal color Limitations: no limitations Course Vital Signs 07/01/23 07/01/23 07/01/23 13:31 14:00 14:30 Temperature 98.4 F Pulse Rate 90 77 67 Respiratory 18 18 19 Rate Blood Pressure 144/70 164/79 146/75 O2 Sat by Pulse 99 99 99 Oximetry - Reevaluation(s) Reevaluation #1: 07/01/23 16:[address] Rueda who agrees and accepts the patient for admission EKG Findings - EKG Comments: EKG Findings:: Interpreted the following: EKG performed at 13:42 rate 77 bpm normal sinus rhythm with frequent PVCs. ME interval 183, QRS taoist 118, QT/QTc is 404/436 Medical Decision Making - Medical Decision Making Was pt. sent in by a medical professional or institution (, PA, PRIMARY SCHOOL TEACHER LIBRARIAN, urgent care, hospital, or [facility]...) When possible be specific @ -[No] Did you speak to anyone other than the patient for history (EMS, parent, family, police, friend...)? What history was obtained from this source @ -Son Did you review nursing and triage notes (agree or disagree)? Why? @ -[I reviewed and agree with nursing and triage notes] Were old charts reviewed (outside hosp., previous admission, EMS record, old EKG, old radiological studies, urgent care reports/EKG's, [facility] records)? Report findings @ -[No old charts were reviewed] Differential Diagnosis (chest pain, altered mental status, abdominal pain women, abdominal pain men, vaginal bleeding, weakness, fever, dyspnea, syncope, headache, dizziness, GI bleed, back pain, seizure, CVA, palpatations, mental health, musculoskeletal)? @ -[not applicable] EKG interpreted by me (3pts min.). @ -[As above] X-rays interpreted by me (1pt min.). @ -yes, below CT interpreted by me (1pt min.). @ -[None done] U/S interpreted by me (1pt. min.). @ -[None done] What testing was considered but not performed or refused? (CT, X-rays, U/S, labs)? Why? @ -[None] What meds were considered but not given or refused? Why? @ -[None] Did you discuss the management of the patient with other professionals (catarina love i.e. , PA, PRIMARY SCHOOL TEACHER LIBRARIAN, lab, RT, psych nurse, vp digital marketing social media and crm, laborer pipelines, teacher, sports development officer, case finisher)? Give summary @ -[No] Was smoking cessation discussed for >3mins.? @ -[No] Was critical care preformed (if so, how long)? @ -[No] Were there social determinants of health that impacted care today? How? (Homelessness, low income, unemployed, alcoholism, drug addiction, transp ortation, low edu. Level, literacy, decrease access to med. care, residential, rehab)? @ -[No] Was there de-escalation of care discussed even if they declined (Discuss DNR or withdrawal of care, Hospice)? DNR status @ -[No] What co-morbidities impacted this encounter? (DM, HTN, Smoking, COPD, CAD, Cancer, CVA, ARF, Chemo, Hep., AIDS, mental health diagnosis, sleep apnea, morbid obesity)? @ -former smoker Was patient admitted / discharged? Hospital course, mention meds given and route, prescriptions, significant lab abnormalities, going to OR and other pertinent info. @ -Admission. This is a pleasant 83-year-old male with a past medical history significant for hypertension and hyperlipidemia who presents to the emergency department with bilateral leg edema. Patient had a thorough history and physical exam performed while in the ED. Heart rate regular rate and rhythm, lungs clear to auscultation with expiratory wheeze. Abdomen soft. 2+ edema to bilateral lower extremities. Patient had laboratory studies performed which revealed WBC 13.7, hemoglobin 12.5 coagulation studies unremarkable sodium 139, potassium 5.1 BUN 27, creatinine 1.30 initial troponin negative BNP 4850 Urinalysis reveals large leukocyte esterase, 21 WBCs Covid and flu and RSV negative Chest x-ray reveals small right pleural effusion, and mild pulmonary vascular congestion with mild cardiomegaly I discussed results in detail with the patient and the patient's son who verbalized understanding all questions were addressed. The agreeable with the plan for admission. Case discussed with Dr. Rueda who agrees and accepts the patient for observation. Patient given IV Lasix in the emergency department. Case discussed with CAMILA Prabhakar who agrees with plan of care Undiagnosed new problem with uncertain prognosis? @ -[No] Drug Therapy requiring intensive monitoring for toxicity (Heparin, Nitro, I nsulin, Cardizem)? @ -[No] Were any procedures done? @ -[No] Diagnosis/symptom? @ -Bilateral Leg Edema - CHF exacerbation Acute, or Chronic, or Acute on Chronic? @ -Acute on Chronic Uncomplicated (without systemic symptoms) or Complicated (systemic symptoms)? @ -Uncomplicated Side effects of treatment? @ -[No] Exacerbation, Progression, or Severe Exacerbation? @ -Exacerbation Poses a threat to life or bodily function? How? (Chest pain, [place], [place], pneumonia, PE, COPD, DKA, ARF, appy, cholecystitis, CVA, Diverticulitis, Homicidal, Suicidal, threat to staff... and all critical care pts) @ High likelihood, CHF - Lab Data Result diagrams: 07/01/23 14:10 07/01/23 14:10 Lab Results 07/01/23 07/01/23 07/01/23 Range/Units 14:10 14:10 14:10 WBC 13.7 H (3.8-10.6) k/uL RBC 4.07 L (4.30-5.90) m/uL Hgb 12.5 L (13.0-17.5) gm/dL Hct 39.6 (39.0-53.0) % MCV 97.4 (80.0-100.0) fL MCH 30.7 (25.0-35.0) pg MCHC 31.5 (31.0-37.0) g/dL RDW 13.9 (11.5-15.5) % Plt Count 225 (150-450) k/uL MPV 8.7 Neutrophils % 84 % Lymphocytes % 9 % Monocytes % 5 % Eosinophils % 0 % Basophils % 0 % Neutrophils # 11.5 H (1.3-7.7) k/uL Lymphocytes # 1.3 (1.0-4.8) k/uL Monocytes # 0.7 (0-1.0) k/uL Eosinophils # 0.1 (0-0.7) k/uL Basophils # 0.0 (0-0.2) k/uL PT 11.3 (9.0-12.0) sec INR 1.1 (<1.2) APTT 29.1 (22.0-30.0) sec Sodium (137-145) mmol/L Potassium (3.5-5.1) mmol/L Chloride (98-107) mmol/L Carbon Dioxide (22-30) mmol/L Anion Gap mmol/L BUN (9-20) mg/dL Creatinine (0.66-1.25) mg/dL Est GFR (CKD-EPI)AfAm (>60 ml/min/1.73 sqM) Est GFR (CKD-EPI)NonAf (>60 ml/min/1.73 sqM) Glucose (74-99) mg/dL Calcium (8.4-10.2) mg/dL Total Bilirubin (0.2-1.3) mg/dL AST (17-59) U/L ALT (4-49) U/L Alkaline Phosphatase (38-126) U/L Troponin I (0.000-0.034) ng/mL NT-Pro-B Natriuret Pep pg/mL Total Protein (6.3-8.2) g/dL Albumin (3.5-5.0) g/dL Urine Color Light Yellow Urine Appearance Cloudy (Clear) Urine pH 5.5 (5.0-8.0) Ur Specific [place] 1.019 (1.001-1.035) Urine Protein Negative (Negative) Urine Glucose (UA) 1+ H (Negative) Urine Ketones Negative (Negative) Urine Blood Small H (Negative) Urine Nitrite Positive (Negative) Urine Bilirubin Negative (Negative) Urine Urobilinogen <2.0 (<2.0) mg/dL Ur Leukocyte Esterase Large H (Negative) Urine RBC 8 H (0-5) /hpf Urine WBC 21 H (0-5) /hpf Urine WBC Clumps Occasional H (None) /hpf Ur Squamous Epith Cells <1 (0-4) /hpf Urine Bacteria Many H (None) /hpf Urine Mucus Rare H (None) /hpf Influenza Type A (PCR) (Not Detectd) Influenza Type B (PCR) (Not Detectd) RSV (PCR) (Not Detectd) SARS-CoV-2 (PCR) (Not Detectd) 07/01/23 07/01/23 07/01/23 Range/Units 14:10 14:10 14:10 WBC (3.8-10.6) k/uL RBC (4.30-5.90) m/uL Hgb (13.0-17.5) gm/dL Hct (39.0-53.0) % MCV (80.0-100.0) fL MCH (25.0-35.0) pg MCHC (31.0-37.0) g/dL RDW (11.5-15.5) % Plt Count (150-450) k/uL MPV Neutrophils % % Lymphocytes % % Monocytes % % Eosinophils % % Basophils % % Neutrophils # (1.3-7.7) k/uL Lymphocytes # (1.0-4.8) k/uL Monocytes # (0-1.0) k/uL Eosinophils # (0-0.7) k/uL Basophils # (0-0.2) k/uL PT (9.0-12.0) sec INR (<1.2) APTT (22.0-30.0) sec Sodium 139 (137-145) mmol/L Potassium 5.1 (3.5-5.1) mmol/L Chloride 106 (98-107) mmol/L Carbon Dioxide 20 L (22-30) mmol/L Anion Gap 13 mmol/L BUN 27 H (9-20) mg/dL Creatinine 1.30 H (0.66-1.25) mg/dL Est GFR (CKD-EPI)AfAm 58 (>60 ml/min/1.73 sqM) Est GFR (CKD-EPI)NonAf 50 (>60 ml/min/1.73 sqM) Glucose 158 H (74-99) mg/dL Calcium 9.2 (8.4-10.2) mg/dL Total Bilirubin 1.0 (0.2-1.3) mg/dL AST 35 (17-59) U/L ALT 21 (4-49) U/L Alkaline Phosphatase 46 (38-126) U/L Troponin I 0.012 (0.000-0.034) ng/mL NT-Pro-B Natriuret Pep 4850 pg/mL Total Protein 7.8 (6.3-8.2) g/dL Albumin 4.4 (3.5-5.0) g/dL Urine Color Urine Appearance (Clear) Urine pH (5.0-8.0) Ur Specific [place] (1.001-1.035) Urine Protein (Negative) Urine Glucose (UA) (Negative) Urine Ketones (Negative) Urine Blood (Negative) Urine Nitrite (Negative) Urine Bilirubin (Negative) Urine Urobilinogen (<2.0) mg/dL Ur Leukocyte Esterase (Negative) Urine RBC (0-5) /hpf Urine WBC (0-5) /hpf Urine WBC Clumps (None) /hpf Ur Squamous Epith Cells (0-4) /hpf Urine Bacteria (None) /hpf Urine Mucus (None) /hpf Influenza Type A (PCR) Not Detected (Not Detectd) Influenza Type B (PCR) Not Detected (Not Detectd) RSV (PCR) Not Detected (Not Detectd) SARS-CoV-2 (PCR) Not Detected (Not Detectd) Disposition Clinical Impression: Bilateral leg edema, CHF exacerbation Disposition: ADMITTED IP TO THIS HOSP Condition: Stable Is patient prescribed a controlled substance at d/c from ED?: No Time of Disposition: 16:02
[2023-07-01 14:26] LABS: Basophils % (A) 0 %; Eosinophils # (A) 0.1 k/uL (0-0.7); Eosinophils % (A) 0 %; HCT 39.6 % (39.0-53.0); HGB 12.5 gm/dL (13.0-17.5); Lymphocytes # (A) 1.3 k/uL (1.0-4.8); Lymphocytes % (A) 9 %; MCH 30.7 pg (25.0-35.0); MCHC 31.5 g/dL (31.0-37.0); MCV 97.4 fL (80.0-100.0); Mean Platelet Volume 8.7; Monocytes # (A) 0.7 k/uL (0-1.0); Monocytes % (A) 5 %; Neutrophils # (A) 11.5 k/uL (1.3-7.7); Neutrophils % (A) 84 %; Platelet Count 225 k/uL (150-450); RBC 4.07 m/uL (4.30-5.90); RDW 13.9 % (11.5-15.5); WBC 13.7 k/uL (3.8-10.6)
[2023-07-01 14:32] LABS: ALT 21 U/L (4-49); African American GFR (CKD) 58 (>60 ml/min/1.73 sqM); Albumin 4.4 g/dL (3.5-5.0); Anion Gap 13 mmol/L; Blood Urea Nitrogen 27 mg/dL (9-20); Calcium 9.2 mg/dL (8.4-10.2); Carbon Dioxide 20 mmol/L (22-30); Chloride 106 mmol/L (98-107); Glucose 158 mg/dL (74-99); Non-African American GFR(CKD) 50 (>60 ml/min/1.73 sqM); Sodium 139 mmol/L (137-145); Total Protein 7.8 g/dL (6.3-8.2)
[2023-07-01 14:33] LABS: AST 35 U/L (17-59); Potassium 5.1 mmol/L (3.5-5.1)
[2023-07-01 14:34] LABS: Alkaline Phosphatase 46 U/L (38-126)
[2023-07-01 14:36] LABS: INR 1.1 (<1.2); Partial Thromboplastin Time 29.1 sec (22.0-30.0); Prothrombin Time 11.3 sec (9.0-12.0)
[2023-07-01 14:40] LABS: NT-Pro-B-Type Natriuretic Pept 4850 pg/mL
--- NOTE | 2023-07-01 15:02 | XR ---
EXAMINATION TYPE: XR chest 2V DATE OF EXAM: 07/01/2023 COMPARISON: 04/18/2020 HISTORY: Bilateral lower leg swelling. TECHNIQUE: Frontal and lateral views of the chest are obtained. FINDINGS: There is been interval development of mild pulmonary vascular congestion. There is moderate cardiomeg yesi. There is a small right pleural effusion. There is no airspace consolidation. The osseous structures are intact. IMPRESSION: Findings most consistent with mild CHF.
[2023-07-01 15:23] LABS: Appearance,Urine Cloudy (Clear); Bacteria,Urine Many /hpf; Bilirubin,Urine Negative (Negative); Blood,Urine Small (Negative); Color,Urine Light Yellow; Glucose,Urine (UA) 1+ (Negative); Ketones,Urine Negative (Negative); Leukocyte Esterase,Urine Large (Negative); Mucus,Urine Rare /hpf; Nitrite,Urine Positive (Negative); PH, Urine 5.5 (5.0-8.0); Protein,Urine Negative (Negative); RBC,Urine 8 /hpf (0-5); Specific Gravity,Urine 1.019 (1.001-1.035); Squamous Epithelial Cell,Urine <1 /hpf (0-4); Urobilinogen,Urine <2.0 mg/dL (<2.0); WBC,Urine 21 /hpf (0-5)
[2023-07-01] MEDS ORDERED: FUROSEMIDE 10 MG/ML 4 ML VIAL IV STA (15:29)
[2023-07-01] MEDS ORDERED: NALOXONE 0.4 MG/ML 1 ML VIAL IV PRN (16:02)
[2023-07-01] MEDS: AMPICILLIN-SULBACTAM 1.5 GM in SODIUM CHLORIDE 0.9% 50 ML IVPB SCH (20:24)
[2023-07-01] MEDS: FUROSEMIDE 10 MG/ML 4 ML VIAL IV SCH (20:24)
[2023-07-01] MEDS: carvediloL 12.5 MG TAB PO SCH (20:24)
--- NOTE | 2023-07-01 20:35 | CT ---
EXAMINATION TYPE: CT chest wo con CT DLP: 282.5 mGycm, Automated exposure control for dose reduction was used. DATE OF EXAM: 07/01/2023 8:17 PM COMPARISON: 06/15/2018 CT. CLINICAL INDICATION:Male, 83 years old with history of pleural effusion; PHH, pleural effusion TECHNIQUE: Multiple axial images were obtained through the chest. Sagittal and coronal reformats were created for review. Contrast used: mL of (None if empty) Oral contrast used: (None if empty) FINDINGS: LUNGS/ PLEURA: Mild centrilobular ischemic changes. No evidence for focal consolidation, pneumothorax or pleural effusion. Left basilar atelectasis most proximal posteriorly on the left lung base. AIRWAY: Patent and unremarkable. HEART: There is mildly enlarged for size. There is coronary artery calcifications. MEDIASTINUM: No gross evidence of adenopathy. VASCULATURE: Atherosclerotic calcifications are present throughout the aorta and its branches. MUSCULOSKELETAL: Moderate disc degeneration changes are present throughout the thoracolumbar spine. SOFT TISSUES/LYMPH NODES: Unremarkable. LOWER NECK: No significant findings. UPPER ABDOMEN: The gallbladder surgically absent. Few splenules are present. Renal cysts are present. IMPRESSION: 1. No evidence for acute thoracic process. No evidence for congestive heart failure. 2. No pleural effusions. 3. Mild emphysema changes.
[2023-07-02] MEDS: AMPICILLIN-SULBACTAM 1.5 GM in SODIUM CHLORIDE 0.9% 50 ML IVPB SCH ×4 (00:24→17:51)
--- NOTE | 2023-07-02 00:26 | CT ---
EXAMINATION TYPE: CT angio chest CT DLP: 368 mGycm, Automated exposure control for dose reduction was used. DATE OF EXAM: 07/01/2023 10:17 PM COMPARISON: CT same day. CLINICAL INDICATION:Male, 83 years old with history of elevated d-dimer; TECHNIQUE/CONTRAST: CTA scan of the thorax is performed with IV Contrast, patient injected with 70 mL of Isovue 300, MIP images are created and reviewed these are created on a separate workstation.. FINDINGS: Pulmonary Artery: There is no evidence for a filling defect within the pulmonary vasculature to sugge st acute pulmonary embolism. The pulmonary artery is of normal size. Lungs/Pleura: Mild centrilobular emphysema changes. No evidence of focal consolidation, pleural effus ion or pneumothorax. Airway: Large airways are patent. Heart: Heart is within normal limits for size. Vasculature: No evidence of aortic aneurysm. Mediastinum: No gross evidence of adenopathy. Musculoskeletal: No acute osseous abnormalities Soft Tissues: Unremarkable. Lower neck: No significant findings. Upper Abdomen: Scattered renal cyst. The gallbladder surgically absent. Scattered colonic diverticula . IMPRESSION: No evidence of pulmonary embolism.
[2023-07-02] MEDS: LEVOTHYROXINE 125 MCG TAB PO SCH (05:44)
[2023-07-02] MEDS: carvediloL 12.5 MG TAB PO SCH ×2 (05:44→17:51)
--- NOTE | 2023-07-02 07:24 | P.CRDCN ---
History of Present Illness Consult date: 07/02/23 Chief complaint: CHF History of present illness: The patient is a pleasant 83-year-old gentleman with CAD and prior stenting with unknown details as well as history of cardiomyopathy as well as hypertension and dyslipidemia. He presented to the hospital with progressive bilateral lower extremities edema started about a week before. No shortness of breath. No cough or wheezing. No sputum. No fever or chills. No symptoms of chest pain or chest discomfort. He stated that he has been compliant with his medications. He was seen by or service lost in 2019 where at that point he underwent an echo that revealed normal biventricular dimension and systolic function was no significant valvular abnormalities. He underwent further workup including an EKG showed sinus mechanism with hypertensive heart disease and PVCs. Troponin came in to be unremarkable. The chest x-ray showed findings consistent with heart failure. BNP proBNP came in to be about 4000. CT of the chest did not show any evidence of pulmonary embolism. Examination is remarkable for severe bilateral lower extremity pitting edema and distal heart sounds with systolic murmur Assessment Heart failure exacerbation with a predominantly right more than left failure CAD with prior stenting with unknown details Hypertension Dyslipidemia Plan Agree about the current dose of Lasix Obtain an echo Monitor the kidney function and electrolytes Follow-up with the patient Past Medical History Past Medical History: Coronary Artery Disease (CAD), Hypertension, Prostate Disorder, Thyroid Disorder Additional Past Medical History / Comment(s): hx polyps, constipation, pt thinks may have had heart attack 2 yrs ago, uses straight cath at home due to enlarged prostate History of Any Multi-Drug Resistant Organisms: None Reported Past Surgical History: Heart Catheterization With Stent, Hernia Repair Additional Past Surgical History / Comment(s): 3 cardiac stents, Past Anesthesia/Blood Transfusion Reactions: No Reported Reaction Date of Last Stent Placement:: 05/2019 Past Psychological History: No Psychological Hx Reported Additional Psychological History / Comment(s): poor historian Smoking Status: Former smoker Past Alcohol Use History: None Reported Additional Past Alcohol Use History / Comment(s): pipe use over past 50 yrs, quit smoking 2018 Past Drug Use History: None Reported - Past Family History Mother Family Medical History: No Reported History Medications and Allergies Home Medications Medication Instructions Recorded Confirmed Type Aspirin 81 mg PO DAILY 04/18/20 07/01/23 History Clopidogrel [Plavix] 75 mg PO DAILY 04/18/20 07/01/23 History Levothyroxine Sodium [Synthroid] 125 mcg PO DAILY 04/18/20 07/01/23 History Atorvastatin Calcium [Lipitor] 40 mg PO DAILY 07/01/23 07/01/23 History Losartan [Cozaar] 50 mg PO DAILY 07/01/23 07/01/23 History Nystatin 100,000Unit/gm Cream 1 applic TOPICAL BID PRN 07/01/23 07/01/23 History [Mycostatin Cream] carvediloL [Coreg] 12.5 mg PO BID 07/01/23 07/01/23 History dexAMETHasone [Decadron] 6 mg PO DAILY 07/01/23 07/01/23 History Allergies Allergy/AdvReac Type Severity Reaction Status Date / Time No Known Allergies Allergy Verified 07/01/23 16:26 Physical Exam Vitals: Vital Signs Temp Pulse Pulse Resp BP BP Pulse Ox 07/02/23 05:45 62 142/59 99 07/02/23 01:51 97.9 F 64 16 115/66 100 07/01/23 18:54 98.1 F 64 16 134/79 99 07/01/23 14:30 67 19 146/75 99 07/01/23 14:00 77 18 164/79 99 07/01/23 13:31 98.4 F 90 18 144/70 99 Intake and Output 07/01/23 07/02/23 07/02/23 22:59 06:59 14:59 Output Total 1100 1400 Balance -1100 -1400 Output: Urine 1100 1400 Other: Voiding Method Indwelling Catheter Weight 81.647 kg Results 07/01/23 14:10 07/01/23 14:10 Cardiac Enzymes 07/01/23 07/01/23 Range/Units 14:10 14:10 AST 35 (17-59) U/L Troponin I 0.012 (0.000-0.034) ng/mL Coagulation 07/01/23 Range/Units 14:10 PT 11.3 (9.0-12.0) sec APTT 29.1 (22.0-30.0) sec CBC 07/01/23 Range/Units 14:10 WBC 13.7 H (3.8-10.6) k/uL RBC 4.07 L (4.30-5.90) m/uL Hgb 12.5 L (13.0-17.5) gm/dL Hct 39.6 (39.0-53.0) % Plt Count 225 (150-450) k/uL Comprehensive Metabolic Panel 07/01/23 Range/Units 14:10 Sodium 139 (137-145) mmol/L Potassium 5.1 (3.5-5.1) mmol/L Chloride 106 (98-107) mmol/L Carbon Dioxide 20 L (22-30) mmol/L BUN 27 H (9-20) mg/dL Creatinine 1.30 H (0.66-1.25) mg/dL Glucose 158 H (74-99) mg/dL Calcium 9.2 (8.4-10.2) mg/dL AST 35 (17-59) U/L ALT 21 (4-49) U/L Alkaline Phosphatase 46 (38-126) U/L Total Protein 7.8 (6.3-8.2) g/dL Albumin 4.4 (3.5-5.0) g/dL Current Medications Generic Name Dose Route Start Last Admin Trade Name Freq PRN Reason Stop Dose Admin Albuterol/Ipratropium 3 ml 07/02/23 08:00 Ipratropium-Albuterol 3 Ml Neb INHALATION RT-QID OBDULIA Aspirin 81 mg 07/02/23 09:00 Aspirin 81 Mg PO DAILY [facility] Atorvastatin Calcium 40 mg 07/02/23 09:00 Atorvastatin 40 Mg Tab PO DAILY [facility] Carvedilol 12.5 mg 07/01/23 21:00 07/02/23 05:44 Carvedilol 12.5 Mg Tab PO 12.5 mg BID-W/MEALS OBDULIA Administration Furosemide 40 mg 07/01/23 21:00 07/01/23 20:24 Furosemide 10 Mg/Ml 4 Ml Vial IV 40 mg Q12HR OBDULIA Administration Ampicillin Sodium/Sulbactam 50 mls @ 100 mls/hr 07/01/23 19:00 07/02/23 05:44 Sodium 1.5 gm/ Sodium Chloride IVPB 100 mls/hr Q6HR OBDULIA Administration Protocol Levothyroxine Sodium 125 mcg 07/02/23 06:30 07/02/23 05:44 Levothyroxine 125 Mcg Tab PO 125 mcg 0630 OBDULIA Administration Losartan Potassium 50 mg 07/02/23 09:00 Losartan 50 Mg Tab PO DAILY OBDULIA Naloxone HCl 0.2 mg 07/01/23 16:02 Naloxone 0.4 Mg/Ml 1 Ml Vial IV Q2M PRN Opioid Reversal Intake and Output 07/01/23 07/02/23 07/02/23 22:59 06:59 14:59 Output Total 1100 1400 Balance -1100 -1400 Output: Urine 1100 1400 Other: Voiding Method Indwelling Catheter Weight 81.647 kg 07/01/23 14:10 07/01/23 14:10
[2023-07-02] MEDS: LOSARTAN 50 MG TAB PO SCH (08:13)
[2023-07-02] MEDS: FUROSEMIDE 10 MG/ML 4 ML VIAL IV SCH ×2 (08:13→19:56)
[2023-07-02] MEDS: ATORVASTATIN 40 MG TAB PO SCH (08:13)
[2023-07-02] MEDS: ASPIRIN 81 MG PO SCH (08:13)
[2023-07-02] MEDS ORDERED: HYDROcodone/APAP 5-325MG 1 EACH TAB PO PRN (08:27)
[2023-07-02] MEDS: IPRATROPIUM-ALBUTEROL 3 ML NEB INHALATION SCH ×4 (09:11→20:44)
[2023-07-02 10:07] LABS: Basophils # (A) 0.07 X 10*3/uL (0.00-0.10); Basophils % (A) 0.5 %; Eosinophils # (A) 0.08 X 10*3/uL (0.04-0.35); Eosinophils % (A) 0.6 %; HCT 37.7 % (39.6-50.0); HGB 12.1 d/dL (13.0-17.0); Lymphocytes # (A) 1.94 X 10*3/uL (0.90-5.00); Lymphocytes % (A) 15.2 %; MCHC 32.1 d/dL (32.0-37.0); MCV 93.3 FL (80.0-97.0); Mean Platelet Volume 10.9 FL (9.5-12.2); Monocytes # (A) 1.32 X 10*3/uL (0.20-1.00); Monocytes % (A) 10.4 %; NRBC Per 100 WBC 0 X 10*3/uL (0.00-0.01); Neutrophils # (A) 9.23 X 10*3/uL (1.80-7.70); Neutrophils % (A) 72.6 %; Platelet Count 223 X 10*3/uL (140-440); RBC 4.04 X 10*6/uL (4.40-5.60); RDW 14.2 % (11.5-14.5); WBC 12.73 X 10*3/uL (4.50-10.00)
[2023-07-02 10:31] LABS: Blood Urea Nitrogen 30.4 mg/dL (9.0-27.0); Calcium 9.3 mg/dL (8.7-10.3); Carbon Dioxide 21.9 mmol/L (21.6-31.8); Chloride 103 mmol/L (96-109); Chol/HDL Ratio 2.13 Ratio; Glucose 109 mg/dL (70-110); LDL Cholesterol,Calculated 38.9 mg/dL (0.0-131.0); Potassium 4.1 mmol/L (3.5-5.5); Sodium 140 mmol/L (135-145)
[2023-07-03] MEDS: AMPICILLIN-SULBACTAM 1.5 GM in SODIUM CHLORIDE 0.9% 50 ML IVPB SCH ×4 (00:44→17:14)
--- NOTE | 2023-07-03 00:56 | HP ---
HISTORY AND PHYSICAL HISTORY OF PRESENT ILLNESS: An 83-year-old white male, past medical history of hypertension, dyslipidemia, came in with a chief complaint of lower extremity edema, bilateral leg swelling gotten worse for a month. He takes his medicines as prescribed. He has chronic cough, severe leg swelling, and redness to his legs. He is short of breath with exertion. HOME MEDICATIONS: Reviewed. 1. Plavix 75 mg daily. 2. Synthroid 125 mcg daily. 3. Lipitor 40 mg daily. 4. Cozaar 50 mg daily. 5. Nystatin cream b.i.d. 6. Coreg 12.5 b.i.d. 7. Decadron 6 mg daily. ALLERGIES: See list. REVIEW OF SYSTEMS: A 14-point review of systems is negative except for PND, orthopnea, and dyspnea with exertion. He is more short of breath . PAST MEDICAL HISTORY: Coronary artery disease, hypertension, prostate disorder, thyroid disorder. PAST SURGICAL HISTORY: Heart catheterization with stent, hernia repair. SOCIAL HISTORY: He is a former smoker. PHYSICAL EXAMINATION: VITAL SIGNS: Reviewed. Temperature 98.4, blood pressure 144/70, pulse is 90, respiratory rate 16 to 18, oxygen 99%. CARDIOVASCULAR: S1, S2. LUNGS: Decreased breath sounds. Scattered wheeze. PSYCH: Alert and oriented x3. NEUROLOGIC: Cranial nerves intact. EXTREMITIES: Showed 2 to 3+ edema with stasis changes in his lower legs. IMAGING: EKG shows sinus rhythm. ASSESSMENT: Congestive heart failure, likely chronic obstructive pulmonary disease, cardiomegaly, right pleural effusion. We will get a CAT scan to assess the right pleural effusion. On IV Lasix. Cardiology consult. Start breathing treatments. Prognosis guarded. Please see further orders. 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 MMODL / IJN: [id number] /
--- NOTE | 2023-07-03 01:20 | PN ---
PROGRESS NOTE SUBJECTIVE: An 83-year-old white male. He will continue with IV Lasix for diastolic CHF. OBJECTIVE: CARDIOVASCULAR: S1, S2. LUNGS: Scattered rhonchi and wheeze. HEMATOLOGY: Negative Homans. PSYCH: Fair mood and affect. PLAN: Continue with diuresis. Updraft treatments for chronic obstructive pulmonary disease seen on CT scan. Await for echo tomorrow. Keep ambulating. Possibly home tomorrow after echo was reviewed. Please see further orders. MMODL / IJN: [id number] /
[2023-07-03] MEDS: carvediloL 12.5 MG TAB PO SCH ×2 (05:19→16:54)
[2023-07-03] MEDS: LEVOTHYROXINE 125 MCG TAB PO SCH (05:19)
[2023-07-03] MEDS: DAPAGLIFLOZIN PROPANEDIOL 5 MG TABLET PO SCH (08:46)
[2023-07-03] MEDS: ASPIRIN 81 MG PO SCH (08:46)
[2023-07-03] MEDS: LACTULOSE 20 GM/30 ML CUP PO SCH ×3 (08:46→19:53)
[2023-07-03] MEDS: CLOPIDOGREL 75 MG TAB PO SCH (08:46)
[2023-07-03] MEDS: ATORVASTATIN 40 MG TAB PO SCH (08:47)
[2023-07-03] MEDS: FUROSEMIDE 40 MG TAB PO SCH (08:47)
[2023-07-03] MEDS: LOSARTAN 50 MG TAB PO SCH (08:47)
[2023-07-03] MEDS: IPRATROPIUM-ALBUTEROL 3 ML NEB INHALATION SCH ×4 (09:17→19:04)
--- NOTE | 2023-07-03 10:13 | P.PN ---
Subjective HISTORY OF PRESENT ILLNESS: The patient is a pleasant 83-year-old gentleman with CAD and prior stenting with unknown details as well as history of cardiomyopathy as well as hypertension and dyslipidemia. He presented to the hospital with progressive bilateral lower extremities edema started about a week before. No shortness of breath. No cough or wheezing. No sputum. No fever or chills. No symptoms of chest pain o r chest discomfort. He stated that he has been compliant with his medications. He was seen by or service lost in 2019 where at that point he underwent an echo that revealed normal biventricular dimension and systolic function was no significant valvular abnormalities. He underwent further workup including an EKG showed sinus mechanism with hypertensive heart disease and PVCs. Troponin came in to be unremarkable. The chest x-ray showed findings consistent with heart failure. BNP proBNP came in to be about 4000. CT of the chest did not show any evidence of pulmonary embolism. 07/03/2023 Patient examined this morning at the bedside. Patient denies chest pain or pres sure. He denies shortness of breath. He remains on Lasix 40 mg every 12 hours. Blood pressure this morning is slightly elevated in the 160s. 2-D echo is currently pending. PHYSICAL EXAM: VITAL SIGNS: Reviewed. GENERAL: Well-developed in no acute distress. NECK: Supple. No JVD or thyromegaly LUNGS: Respirations even and unlabored. Lungs essentially clear to auscultation bilaterally. HEART: Regular rate and rhythm. S1 and S2 heard. EXTREMITIES: Normal range of motion. No clubbing or cyanosis. Peripheral pulses intact. No lower extremity edema ASSESSMENT: Shortness of breath Acute on chronic heart failure with preserved ejection fraction Coronary artery disease with previous stenting, details unknown Hypertension Hyperlipidemia PLAN: 2-D echo ordered. Await results. Continue current cardiac medications Discontinue IV Lasix Begin oral Lasix 40 mg daily Recommend close outpatient follow-up of patient's blood pressure as he may need adjustments to his antihypertensive regimen Patient may be discharged home today from a cardiac standpoint and follow up with his primary dope and fabric worker Josef Albarado Nurse practitioner note has been reviewed by physician. Signing provider agrees with the documented findings, assessment, and plan of care. Objective - Vital Signs Vital signs: Vital Signs Temp 97.8 F 07/03/23 07:00 Pulse 71 07/03/23 09:26 Resp 18 07/03/23 07:00 BP 155/59 07/03/23 07:00 Pulse Ox 96 07/03/23 07:00 FiO2 Intake & Output 07/02/23 07/03/23 07/03/23 18:59 06:59 18:59 Intake Total 118 Output Total 1600 1900 Balance -1600 -1900 118 Intake: Oral 118 Output: Urine 1600 1900 Other: Voiding Method Indwelling Catheter # Voids 2 # Bowel Movements 0 0 - Labs CBC & Chem 7: 07/02/23 05:38 07/02/23 05:38 Labs: Abnormal Lab Results - Last 24 Hours (Table) 07/02/23 07/02/23 Range/Units 05:38 05:38 WBC 12.73 H (4.50-10.00) X 10*3/uL RBC 4.04 L (4.40-5.60) X 10*6/uL Hgb 12.1 L (13.0-17.0) d/dL Hct 37.7 L (39.6-50.0) % Neutrophils # 9.23 H (1.80-7.70) X 10*3/uL Monocytes # 1.32 H (0.20-1.00) X 10*3/uL Anion Gap 15.10 H (4.00-12.00) mmol/L BUN 30.4 H (9.0-27.0) mg/dL Creatinine 1.6 H (0.6-1.5) mg/dL Est GFR (CKD-EPI) 42 L (>=60) TSH 0.095 L (0.350-5.500) UIU/ML
--- NOTE | 2023-07-03 17:41 | CA ---
Transthoracic Echo Report Name: Will Perez Age: 83 Gender: M : 1940 Exam Date: 07/03/2023 08:17 Exam Location: [facility] Ht (in): 66 Wt (lb): 180 Ordering Physician: Nathan Rueda MD Attending/Referring Phys: Aluminum Siding Applicator Jennifer Orr RDCS Procedure CPT: Indications: chf Cardiac Hx: Technical Quality: Fair Contrast 1: Total Dose (mL): Contrast 2: Total Dose (mL): MEASUREMENTS (Male / Female) Normal Values 2D ECHO LV Diastolic Diameter PLAX 5.0 cm 4.2 - 5.9 / 3.9 - 5.3 cm LV Systolic Diameter PLAX 3.8 cm IVS Diastolic Thickness 1.3 cm 0.6 - 1.0 / 0.6 - 0.9 cm LVPW Diastolic Thickness 1.1 cm 0.6 - 1.0 / 0.6 - 0.9 cm LV Relative Wall Thickness 0.5 RV Internal Dim ED PLAX 3.0 cm LVOT Diameter 2.0 cm LA Systolic Diameter LX 4.5 cm 3.0 - 4.0 / 2.7 - 3.8 cm LV Diastolic Volume MOD 4C 120.2 cm??? LV Systolic Volume MOD 4C 69.6 cm??? LV Ejection Fraction MOD 4C 42.2 % LV Cardiac Index MOD 4C 1361.9 cm???/min???m??? LV Diastolic Length 4C 7.5 cm LV Systolic Length 4C 6.7 cm LV Diastolic Volume MOD 2C 52.9 cm??? LV Systolic Volume MOD 2C 28.6 cm??? LV Ejection Fraction MOD 2C 45.9 % LV Cardiac Index MOD 2C 652.5 cm???/min???m??? LV Diastolic Length 2C 7.6 cm LV Systolic Length 2C 6.5 cm LA Volume 68.1 cm??? 18 - 58 / 22 - 52 cm??? LA Volume Index 34.5 cm???/m??? 16 - 28 cm???/m??? M-MODE Aortic Root Diameter MM 3.0 cm MV E Point Septal Separation 1.4 cm AV Cusp Separation MM 1.9 cm DOPPLER AV Peak Velocity 107.5 cm/s AV Peak Gradient 4.6 mmHg AI Peak Velocity 287.3 cm/s AI Peak Gradient 33.0 mmHg AI Pressure Half Time 807.9 ms MV Area PHT 3.4 cm??? Mitral E Point Velocity 84.2 cm/s Mitral A Point Velocity 75.0 cm/s Mitral E to A Ratio 1.1 MV Deceleration Time 223.5 ms MV E' Velocity 2.7 cm/s Mitral E to MV E' Ratio 31.5 TR Peak Velocity 277.8 cm/s TR Peak Gradient 30.9 mmHg Right Ventricular Systolic Press 35.5 mmHg FINDINGS Left Ventricle Left ventricular ejection fraction is estimated at 40-45 %. Left ventricular cavity size normal. Mildly increased septal wall thickness. Right Ventricle Normal right ventricular size. Mild pulmonary hypertension. Right Atrium Normal right atrial size. Left Atrium Mildly increased left atrial diameter. Mildly increased left atrial volume. Mildly increased left atrial area. Mitral Valve Structurally normal mitral valve. Mitral annular calcification. Mild mitral regurgitation. Aortic Valve Trileaflet aortic valve. Trace to mild aortic regurgitation. Thickened aortic valve without stenosis. Tricuspid Valve Structurally normal tricuspid valve. Mild tricuspid regurgitation. Pulmonic Valve Pulmonic valve not well visualized. Pericardium No pericardial effusion. Aorta Normal size aortic root and proximal ascending aorta. CONCLUSIONS Reduced LV systolic function, ejection fraction 40% Previewed by: Dr. Rosas Flores MD (Electronically Signed) Final Date: 03 July 2023 17:40
--- NOTE | 2023-07-03 20:59 | PN ---
PROGRESS NOTE SUBJECTIVE: This 83-year-old white male came in with congestive heart failure. Cardiology has been monitoring him. Echocardiogram shows RVSP of 35, ejection fraction 40-45%, mild pulmonary hypertension, adjust his medicines for congestive heart failure and put him on Farxiga. He is on breathing treatments, possibly will be able to go home in the next 24 to 48 hours if Cardiology clears him for discharge. Medications adjusted. He is breathing better, his leg swelling is better, acute on chronic heart failure. He has reduced ejection fraction actually. Coronary artery disease with stents, hypertension, dyslipidemia. We will start him on oral Lasix, adjust blood pressure medicines, possibly Farxiga, possibly discharge him home in next 24 to 48 hours. PROGNOSIS: Guarded. MMODL / IJN: [id number] /
[2023-07-04] MEDS: AMPICILLIN-SULBACTAM 1.5 GM in SODIUM CHLORIDE 0.9% 50 ML IVPB SCH ×3 (01:03→11:43)
[2023-07-04] MEDS: carvediloL 12.5 MG TAB PO SCH ×2 (05:35→17:34)
[2023-07-04] MEDS ORDERED: LEVOTHYROXINE 100 MCG TAB PO SCH (06:30)
[2023-07-04 07:55] VITALS: RESP 18
[2023-07-04] MEDS: FUROSEMIDE 40 MG TAB PO SCH (08:17)
[2023-07-04] MEDS: DAPAGLIFLOZIN PROPANEDIOL 5 MG TABLET PO SCH (08:17)
[2023-07-04] MEDS: LOSARTAN 50 MG TAB PO SCH (08:17)
[2023-07-04] MEDS: CLOPIDOGREL 75 MG TAB PO SCH (08:17)
[2023-07-04] MEDS: ATORVASTATIN 40 MG TAB PO SCH (08:17)
[2023-07-04] MEDS: ASPIRIN 81 MG PO SCH (08:17)
[2023-07-04] MEDS: LACTULOSE 20 GM/30 ML CUP PO SCH ×2 (08:17→17:34)
[2023-07-04] MEDS: IPRATROPIUM-ALBUTEROL 3 ML NEB INHALATION SCH ×3 (10:05→16:32)
--- NOTE | 2023-07-04 10:33 | P.PN ---
Subjective HISTORY OF PRESENT ILLNESS: The patient is a pleasant 83-year-old gentleman with CAD and prior stenting with unknown details as well as history of cardiomyopathy as well as hypertension and dyslipidemia. He presented to the hospital with progressive bilateral lower extremities edema started about a week before. No shortness of breath. No cough or wheezing. No sputum. No fever or chills. No symptoms of chest pain o r chest discomfort. He stated that he has been compliant with his medications. He was seen by or service lost in 2019 where at that point he underwent an echo that revealed normal biventricular dimension and systolic function was no significant valvular abnormalities. He underwent further workup including an EKG showed sinus mechanism with hypertensive heart disease and PVCs. Troponin came in to be unremarkable. The chest x-ray showed findings consistent with heart failure. BNP proBNP came in to be about 4000. CT of the chest did not show any evidence of pulmonary embolism. 07/03/2023 Patient examined this morning at the bedside. Patient denies chest pain or pres sure. He denies shortness of breath. He remains on Lasix 40 mg every 12 hours. Blood pressure this morning is slightly elevated in the 160s. 2-D echo is currently pending. 07/04/2023 Patient examined this morning at the bedside. Patient denies chest pain or pressure. He denies shortness of breath. Echocardiogram completed revealing ejection fraction 40-45%, mild MR, trace to mild AR, and mild TR PHYSICAL EXAM: VITAL SIGNS: Reviewed. GENERAL: Well-developed in no acute distress. NECK: Supple. No JVD or thyromegaly LUNGS: Respirations even and unlabored. Lungs essentially clear to auscultation bilaterally. HEART: Regular rate and rhythm. S1 and S2 heard. EXTREMITIES: Normal range of motion. No clubbing or cyanosis. Peripheral pulses intact. No lower extremity edema ASSESSMENT: Shortness of breath Acute on chronic heart failure with preserved ejection fraction Coronary artery disease with previous stenting, details unknown Hypertension Hyperlipidemia Acute kidney injury PLAN: Continue current cardiac medications Recommend amlodipine not be added to patient's medication regimen secondary to cardiomyopathy Recommend increased dose of Cozaar when patient's kidney function has normalized Recommend close outpatient follow-up of patient's blood pressure as he may need adjustments to his antihypertensive regimen Patient may be discharged home today from a cardiac standpoint and follow up with his primary district representative Josef Albarado We'll sign off. Please reconsult if needed. Nurse practitioner note has been reviewed by physician. Signing provider agrees with the documented findings, assessment, and plan of care. Objective - Vital Signs Vital signs: Vital Signs Temp 97.9 F 07/04/23 07:00 Pulse 60 07/04/23 07:00 Resp 18 07/04/23 07:00 BP 120/61 07/04/23 07:00 Pulse Ox 97 07/04/23 07:00 FiO2 Intake & Output 07/03/23 07/04/23 07/04/23 18:59 06:59 18:59 Intake Total 358 Output Total 700 640 Balance -342 -640 Intake: Oral 358 Output: Urine 700 640 Other: Voiding Method Indwelling Catheter Indwelling Catheter Indwelling Catheter # Bowel Movements 1 - Labs CBC & Chem 7: 07/02/23 05:38 07/02/23 05:38 Labs: Microbiology - Last 24 Hours (Table) 07/01/23 14:10 Urine Culture - Preliminary Urine,Catheterized Gram Neg Bacilli
[2023-07-04 14:16] VITALS: BP 170/81; PULSE 61; TEMP 97.8
[2023-07-04] MEDS ORDERED: CIPROFLOXACIN HCL 500 MG TAB PO SCH (21:00)
--- NOTE | 2023-07-04 23:56 | DS ---
DISCHARGE SUMMARY The patient came in with Klebsiella UTI, congestive heart failure, cellulitis of legs, started on IV antibiotics, switched to oral Cipro on discharge. Added Lasix for CHF DuoNeb for COPD following CAT scan, has pulmonary hypertension . Continue current treatments. Prognosis guarded. Ambulate as tolerated. Medically stable. Please see further orders. Follow up in office in a week. MMODL / IJN: [id number] /
== END 2023-07-04 18:11 | disposition home or self-care (01) | DRG 291 ==
LOC: EC 13:24 → 6NMEDSUR 15:50 → OBSVTOIN 15:51 → 6NMEDSUR 17:19
PROVIDERS: ADMIT Family Medicine; ATTEND Family Medicine
DX: I11.0 Hypertensive heart disease with heart failure (principal); I50.33 Acute on chronic diastolic (congestive) heart failure; N17.0 Acute kidney failure with tubular necrosis; L03.115 Cellulitis of right lower limb; L03.116 Cellulitis of left lower limb; I42.9 Cardiomyopathy, unspecified; I27.20 Pulmonary hypertension, unspecified; J44.9 Chronic obstructive pulmonary disease, unspecified; Z11.52 Encounter for screening for COVID-19; I25.10 Atherosclerotic heart disease of native coronary artery without angina pectoris; D64.9 Anemia, unspecified; E78.5 Hyperlipidemia, unspecified; E07.9 Disorder of thyroid, unspecified; N42.9 Disorder of prostate, unspecified; Z79.82 Long term (current) use of aspirin; Z79.02 Long term (current) use of antithrombotics/antiplatelets; Z79.890 Hormone replacement therapy; Z79.899 Other long term (current) drug therapy; Z87.891 Personal history of nicotine dependence; Z95.5 Presence of coronary angioplasty implant and graft
CPT/HCPCS: 36415; 71046; 71250; 71275; 80048; 80053; 80061; 81001; 83036; 83880; 84439; 84443; 84484; 85025; 85379; 85610; 85730; 87077; 87086; 87186; 87636; 93005; 93306; 94640; 96374; 99285

== ENCOUNTER 2024-10-01 12:35 | Observation (INO) | payer MEDICARE ==
--- NOTE | 2024-10-01 13:14 | ED ---
Extremity Problem HPI - General Chief complaint: Extremity Problem,Nontraumatic Stated complaint: Fluid Retention Time Seen by Provider: 10/01/24 13:12 Source: patient, EMS, RN notes reviewed, old records reviewed Mode of arrival: EMS Limitations: no limitations - History of Present Illness Initial comments: 84-year-old male presenting to the ER for evaluation of bilateral lower extremity edema. Patient reports a history of heart failure and is currently taking Lasix. Patient reports for the past couple of months worse in the past couple of weeks he has noticed swelling to his bilateral lower extremities. Denies scrotal swelling. He has been taking his medications. He states today his son told him to be evaluated due to concern of heart failure which prompted him to call 911. Patient denies pain. Patient denies any fevers, cough, congestion, shortness of breath, chest pain or other complaints. - Related Data Home Medications Medication Instructions Recorded Confirmed Aspirin 81 mg PO DAILY 04/18/20 07/01/23 Clopidogrel [Plavix] 75 mg PO DAILY 04/18/20 07/01/23 Levothyroxine Sodium [Synthroid] 125 mcg PO DAILY 04/18/20 07/01/23 Atorvastatin Calcium [Lipitor] 40 mg PO DAILY 07/01/23 07/01/23 Losartan [Cozaar] 50 mg PO DAILY 07/01/23 07/01/23 Nystatin 100,000Unit/gm Cream 1 applic TOPICAL BID PRN 07/01/23 07/01/23 [Mycostatin Cream] Previous Rx's Medication Instructions Recorded Ciprofloxacin HCl [Cipro] 500 mg PO BID 7 Days #14 tab 07/04/23 Furosemide [Lasix] 40 mg PO DAILY 90 Days #90 tab 07/04/23 Allergies Allergy/AdvReac Type Severity Reaction Status Date / Time No Known Allergies Allergy Verified 10/01/24 15:13 Review of Systems ROS Statement: Those systems with pertinent positive or pertinent negative responses have been documented in the HPI. ROS Other: All systems not noted in ROS Statement are negative. Past Medical History Past Medical History: Coronary Artery Disease (CAD), Hypertension, Prostate Disorder, Thyroid Disorder Additional Past Medical History / Comment(s): hx polyps, constipation, pt thinks may have had heart attack 2 yrs ago, uses straight cath at home due to enlarged prostate History of Any Multi-Drug Resistant Organisms: None Reported Past Surgical History: Heart Catheterization With Stent, Hernia Repair Additional Past Surgical History / Comment(s): 3 cardiac stents, Past Anesthesia/Blood Transfusion Reactions: No Reported Reaction Date of Last Stent Placement:: 05/2019 Past Psychological History: No Psychological Hx Reported Smoking Status: Former smoker Past Alcohol Use History: None Reported Past Drug Use History: None Reported - Past Family History Mother Family Medical History: No Reported History General Exam Limitations: no limitations General appearance: alert, in no apparent distress Respiratory exam: Present: normal lung sounds bilaterally. Absent: respiratory distress, wheezes, rales, rhonchi, stridor Cardiovascular Exam: Present: regular rate, normal rhythm, normal heart sounds. Absent: systolic murmur, diastolic murmur, rubs, gallop, clicks Extremities exam: Present: full ROM, pedal edema (2+ bilaterally) Neurological exam: Present: alert, oriented X3, CN II-XII intact Skin exam: Present: warm, dry, intact, normal color. Absent: rash Course Vital Signs 10/01/24 10/01/24 12:36 14:38 Temperature 97.5 F L Pulse Rate 71 Respiratory 20 Rate Blood Pressure 162/76 O2 Sat by Pulse 100 100 Oximetry - Reevaluation(s) Reevaluation #1: 10/01/24 14:[address] Rueda who advises on admission. Medical Decision Making - Medical Decision Making Was pt. sent in by a medical professional or institution (, PA, LITHOGRAPH PRESS OPERATOR, urgent care, hospital, or half-way...) When possible be specific @ -No Did you speak to anyone other than the patient for history (EMS, parent, family, police, friend...)? What history was obtained from this source @ -No Did you review nursing and triage notes (agree or disagree)? Why? @ -I reviewed and agree with nursing and triage notes Were old charts reviewed (outside hosp., previous admission, EMS record, old EKG, old radiological studies, urgent care reports/EKG's, half-way records)? Report findings @ -No old charts were reviewed Differential Diagnosis (chest pain, altered mental status, abdominal pain women, abdominal pain men, vaginal bleeding, weakness, fever, dyspnea, syncope, headache, dizziness, GI bleed, back pain, seizure, CVA, palpatations, mental health, musculoskeletal)? @ -DVT, dependent edema, CHF exacerbation, fracture... This list is not meant to be all-inclusive EKG interpreted by me (3pts min.). @ -As above X-rays interpreted by me (1pt min.). @ -CXR interpreted by me negative for acute pulmonary vascular congestion or focal consolidation. CT interpreted by me (1pt min.). @ -None done U/S interpreted by me (1pt. min.). @ -None done What testing was considered but not performed or refused? (CT, X-rays, U/S, labs)? Why? @ -None What meds were considered but not given or refused? Why? @ -None Did you discuss the management of the patient with other professionals (professionals i.e. Dr., PA, LITHOGRAPH PRESS OPERATOR, lab, RT, psych nurse, director social service, wall taper, teacher, alumni relations officer, family preservation caseworker)? Give summary @ -Yes, case discussed with Dr. Rueda who advises on admission. Was smoking cessation discussed for >3mins.? @ -No Was critical care preformed (if so, how long)? @ -No Were there social determinants of health that impacted care today? How? (Homelessness, low income, unemployed, alcoholism, drug addiction, transportation, low edu. Level, literacy, decrease access to med. care, [facility], rehab)? @ -No Was there de-escalation of care discussed even if they declined (Discuss DNR or withdrawal of care, Hospice)? DNR status @ -No What co-morbidities impacted this encounter? (DM, HTN, Smoking, COPD, CAD, Cancer, CVA, ARF, Chemo, Hep., AIDS, mental health diagnosis, sleep apnea, morbid obesity)? @ -Hx CHF,CAD, hypertension, prostate disorder, thyroid disorder Was patient admitted / discharged? Hospital course, mention meds given and route, prescriptions, significant lab abnormalities, going to OR and other pertinent info. @ -Admitted. 84-year-old male presented to the ER for evaluation of bilateral lower extremity edema. Patient has a history of heart failure and takes 40 mg of Lasix daily.History and physical exam completed. Vitals within acceptable limits. Patient in no signs of acute distress nontoxic-appearing. Exam significant for 2+ pedal/pretibial edema bilaterally. Laboratory studies were obtained significant BNP 1940, troponin 0.022. BUN of 19 with a creatinine 1.27 GFR 51 which appears to be at patient's baseline. Patient ambulated in the ER to monitor oxygen saturations which remained 99 to 100% on room air. CXR negative for pulmonary vascular congestion or other acute process. Case was discussed with patient's PCP, Dr. Rueda, given concern for CHF exacerbation w ho advised on admission. Patient started on IV lasix 40 mg BID. Patient agreeable for admission. Case discussed with ED attending, Dr. Castrejon. Undiagnosed new problem with uncertain prognosis? @ -No Drug Therapy requiring intensive monitoring for toxicity (Heparin, Nitro, Insulin, Cardizem)? @ -No Were any procedures done? @ -No Diagnosis/symptom? @ -CHF exacerbation Acute, or Chronic, or Acute on Chronic? @ -Acute Uncomplicated (without systemic symptoms) or Complicated (systemic symptoms)? @ -Complicated Side effects of treatment? @ -No Exacerbation, Progression, or Severe Exacerbation? @ -Exacerbation Poses a threat to life or bodily function? How? (Chest pain, USA, CT, pneumonia, PE, COPD, DKA, ARF, appy, cholecystitis, CVA, Diverticulitis, Homicidal, Suicidal, threat to staff... and all critical care pts) @ -Yes, fluid overload can lead to hypoxia. - Lab Data Result diagrams: 10/01/24 13:47 10/01/24 13:47 Lab Results 10/01/24 10/01/24 10/01/24 Range/Units 13:47 13:47 13:47 WBC 6.9 (3.8-10.6) k/uL RBC 4.36 (4.30-5.90) m/uL Hgb 13.1 (13.0-17.5) gm/dL Hct 40.6 (39.0-53.0) % MCV 93.2 (80.0-100.0) fL MCH 30.1 (25.0-35.0) pg MCHC 32.3 (31.0-37.0) g/dL RDW 14.0 (11.5-15.5) % Plt Count 233 (150-450) k/uL MPV 7.5 Neutrophils % 57 % Lymphocytes % 23 % Monocytes % 9 % Eosinophils % 6 % Basophils % 1 % Neutrophils # 4.0 (1.3-7.7) k/uL Lymphocytes # 1.6 (1.0-4.8) k/uL Monocytes # 0.6 (0-1.0) k/uL Eosinophils # 0.4 (0-0.7) k/uL Basophils # 0.1 (0-0.2) k/uL PT (10.0-12.5) sec INR (<1.2) APTT (22.0-30.0) sec Sodium 140 (137-145) mmol/L Potassium 3.8 (3.5-5.1) mmol/L Chloride 104 (98-107) mmol/L Carbon Dioxide 24 (22-30) mmol/L Anion Gap 12 mmol/L BUN 19 (9-20) mg/dL Creatinine 1.27 H (0.66-1.25) mg/dL Est GFR (CKD-EPI)AfAm 59 (>60 ml/min/1.73 sqM) Est GFR (CKD-EPI)NonAf 51 (>60 ml/min/1.73 sqM) Glucose 102 H (74-99) mg/dL Calcium 9.1 (8.4-10.2) mg/dL Total Bilirubin 0.7 (0.2-1.3) mg/dL AST 22 (17-59) U/L ALT 14 (4-49) U/L Alkaline Phosphatase 63 (38-126) U/L Troponin I 0.022 (0.000-0.034) ng/mL NT-Pro-B Natriuret Pep 1940 pg/mL Total Protein 7.0 (6.3-8.2) g/dL Albumin 4.2 (3.5-5.0) g/dL 10/01/24 Range/Units 13:47 WBC (3.8-10.6) k/uL RBC (4.30-5.90) m/uL Hgb (13.0-17.5) gm/dL Hct (39.0-53.0) % MCV (80.0-100.0) fL MCH (25.0-35.0) pg MCHC (31.0-37.0) g/dL RDW (11.5-15.5) % Plt Count (150-450) k/uL MPV Neutrophils % % Lymphocytes % % Monocytes % % Eosinophils % % Basophils % % Neutrophils # (1.3-7.7) k/uL Lymphocytes # (1.0-4.8) k/uL Monocytes # (0-1.0) k/uL Eosinophils # (0-0.7) k/uL Basophils # (0-0.2) k/uL PT 11.4 (10.0-12.5) sec INR 1.0 (<1.2) APTT 27.9 (22.0-30.0) sec Sodium (137-145) mmol/L Potassium (3.5-5.1) mmol/L Chloride (98-107) mmol/L Carbon Dioxide (22-30) mmol/L Anion Gap mmol/L BUN (9-20) mg/dL Creatinine (0.66-1.25) mg/dL Est GFR (CKD-EPI)AfAm (>60 ml/min/1.73 sqM) Est GFR (CKD-EPI)NonAf (>60 ml/min/1.73 sqM) Glucose (74-99) mg/dL Calcium (8.4-10.2) mg/dL Total Bilirubin (0.2-1.3) mg/dL AST (17-59) U/L ALT (4-49) U/L Alkaline Phosphatase (38-126) U/L Troponin I (0.000-0.034) ng/mL NT-Pro-B Natriuret Pep pg/mL Total Protein (6.3-8.2) g/dL Albumin (3.5-5.0) g/dL - EKG Data -: EKG Interpreted by Dc EKG Comments: EKG taken at 13: 09 showing a sinus rhythm. Occasional PVC. No ST segment abnormalities. Inverted T waves lead III. Ventricular rate 60, HI interval 195, QRS duration 112, QT/QTc 439/439. - Radiology Data Radiology results: report reviewed, image reviewed Disposition Clinical Impression: CHF exacerbation Disposition: ADMITTED IP TO THIS [facility] Condition: Stable Referrals: Nathan Rueda MD [Primary Care Provider] - 1-2 days Time of Disposition: 14:51
[2024-10-01 13:54] LABS: Basophils # (A) 0.1 k/uL (0-0.2); Basophils % (A) 1 %; Eosinophils # (A) 0.4 k/uL (0-0.7); Eosinophils % (A) 6 %; HCT 40.6 % (39.0-53.0); HGB 13.1 gm/dL (13.0-17.5); Lymphocytes # (A) 1.6 k/uL (1.0-4.8); Lymphocytes % (A) 23 %; MCH 30.1 pg (25.0-35.0); MCHC 32.3 g/dL (31.0-37.0); MCV 93.2 fL (80.0-100.0); Mean Platelet Volume 7.5; Monocytes # (A) 0.6 k/uL (0-1.0); Monocytes % (A) 9 %; Neutrophils % (A) 57 %; Platelet Count 233 k/uL (150-450); RBC 4.36 m/uL (4.30-5.90); WBC 6.9 k/uL (3.8-10.6)
[2024-10-01 14:13] LABS: ALT 14 U/L (4-49); AST 22 U/L (17-59); African American GFR (CKD) 59 (>60 ml/min/1.73 sqM); Albumin 4.2 g/dL (3.5-5.0); Alkaline Phosphatase 63 U/L (38-126); Anion Gap 12 mmol/L; Blood Urea Nitrogen 19 mg/dL (9-20); Calcium 9.1 mg/dL (8.4-10.2); Carbon Dioxide 24 mmol/L (22-30); Chloride 104 mmol/L (98-107); Glucose 102 mg/dL (74-99); Non-African American GFR(CKD) 51 (>60 ml/min/1.73 sqM); Potassium 3.8 mmol/L (3.5-5.1); Sodium 140 mmol/L (137-145); Total Bilirubin 0.7 mg/dL (0.2-1.3)
[2024-10-01 14:15] LABS: Partial Thromboplastin Time 27.9 sec (22.0-30.0); Prothrombin Time 11.4 sec (10.0-12.5)
--- NOTE | 2024-10-01 14:15 | XR ---
EXAMINATION TYPE: XR chest 2V DATE OF EXAM: 10/01/2024 2:05 PM COMPARISON: 07/01/2023 CLINICAL INDICATION: Male, 84 years old with history of carroll LE edema, , TECHNIQUE: AP and lateral views FINDINGS: The heart is mildly enlarged. Aorta and pulmonary vasculature within normal limits. No consolidation or pleural effusion. Increased retrosternal clear space on the lateral view. Cholecystectomy clips. IMPRESSION: Mild cardiomegaly. Possible underlying COPD. No acute process otherwise seen. [facility], Workstation: [id number], 10/01/2024 2:13 PM
[2024-10-01 14:21] LABS: NT-Pro-B-Type Natriuretic Pept 1940 pg/mL
[2024-10-01] MEDS ORDERED: ACETAMINOPHEN TAB 325 MG TAB PO PRN (14:48)
[2024-10-01] MEDS ORDERED: NALOXONE 0.4 MG/ML 1 ML VIAL IV PRN (14:48)
[2024-10-01] MEDS: FUROSEMIDE 10 MG/ML 4 ML VIAL IV SCH (15:48)
[2024-10-01] MEDS: IPRATROPIUM-ALBUTEROL 3 ML NEB INHALATION SCH (20:37)
[2024-10-02] MEDS: LEVOTHYROXINE 125 MCG TAB PO SCH (06:05)
[2024-10-02] MEDS: CLOPIDOGREL 75 MG TAB PO SCH (08:32)
[2024-10-02] MEDS: ATORVASTATIN 40 MG TAB PO SCH (08:32)
[2024-10-02] MEDS: LOSARTAN 50 MG TAB PO SCH (08:32)
[2024-10-02] MEDS: carvediloL 6.25 MG TAB PO SCH (09:22)
[2024-10-02] MEDS: DAPAGLIFLOZIN PROPANEDIOL 10 MG TABLET PO SCH (09:22)
--- NOTE | 2024-10-02 11:58 | P.CRDCN ---
History of Present Illness Consult date: 10/02/24 Consult reason: congestive heart failure History of present illness: This is an 84-year-old male follows with a equipment washer outside of [facility] with past medical history of coronary artery disease with prior stenting details are not available, history of cardiomyopathy, hypertension, dyslipidemia. We have been asked to evaluate the patient for CHF. Patient states that he presented to the hospital due to lower extremity edema which she states is much improved today. He states his feet almost look like they are normal to him. Patient denies significant shortness of breath. No chest pain. Blood pressure 146/86, heart rate 99, pulse ox 96% on room air. Patient has been started on IV Lasix 40 mg twice daily. -EKG: Sinus arrhythmia with PVCs -Chest x-ray: Mild cardiomegaly. Possible underlying COPD. No acute process. -Laboratory studies: CBC and electrolytes within normal limits. BUN 19 and creatinine 1.27. Troponin negative x 1. proBNP 194. -Home cardiac medications: Aspirin 81 mg daily, atorvastatin 40 mg daily, Plavix 75 mg daily, Lasix 40 mg daily, losartan 50 mg daily. -Echocardiogram performed 07/03/2023 reveals EF 40%. Review Of Systems: At the time of my exam: CONSTITUTIONAL: Denies fever or chills. HEENT: Denies blurred vision, vision changes, or eye pain. Denies hemoptysis CARDIOVASCULAR: Denies chest pain. Denies orthopnea. Denies PND. Denies palpitations. Reports lower extremity edema RESPIRATORY: Denies shortness of breath. GASTROINTESTINAL: Denies abdominal pain. Denies nausea or vomiting. HEMATOLOGIC: Denies bleeding disorders. GENITOURINARY: Denies any blood in urine. SKIN: Denies puritis. Denies rash. Physical examination: Gen: This is an 84-year-old male in no acute distress VS: reviewed HEENT: Head is atraumatic, normocephalic. Pupils equal, round. Sclerae is anicteric. NECK: Supple. Mild JVD. LUNGS: Clear to auscultation. No wheezes or rhonchi. No intercostal retra ctions. HEART: Regular rate and rhythm. No murmur. ABDOMEN: Soft No tenderness. EXTREMITIES: 1+ bilateral lower extremity pitting edema. No calf tenderness. NEUROLOGICAL: Patient is awake, alert and oriented x3. Assessment: Acute on chronic systolic heart failure CAD with prior stenting, unknown details Hypertension Dyslipidemia Plan: Resume patient's home cardiac medications Transition IV Lasix to oral Bumex 1 mg daily Add Farxiga 10 mg daily Add Coreg 6.25 mg twice daily for blood pressure control Obtain 2-D echocardiogram and Doppler study to assess cardiac structure and function Further recommendations to follow based upon clinical course Thank you kindly for this consultation. Nurse practitioner note has been reviewed, I agree with documented findings and plan of care. Patient was seen and examined. Past Medical History Past Medical History: Coronary Artery Disease (CAD), Heart Failure, Hyperlipidemia, Hypertension, Prostate Disorder, Thyroid Disorder Additional Past Medical History / Comment(s): hx polyps, constipation, pt thinks may have had heart attack 2 yrs ago, uses straight cath at home due to enlarged prostate, Hard of hearing History of Any Multi-Drug Resistant Organisms: None Reported Past Surgical History: Heart Catheterization With Stent, Hernia Repair Additional Past Surgical History / Comment(s): 3 cardiac stents, Past Anesthesia/Blood Transfusion Reactions: No Reported Reaction Date of Last Stent Placement:: 05/2019 Smoking Status: Former smoker - Past Family History Mother Family Medical History: No Reported History Additional Family Medical History / Comment(s): at 40, "big drinker" Medications and Allergies Home Medications Medication Instructions Recorded Confirmed Type Aspirin 81 mg PO DAILY 04/18/20 10/01/24 History Clopidogrel [Plavix] 75 mg PO DAILY 04/18/20 10/01/24 History Levothyroxine Sodium [Synthroid] 125 mcg PO DAILY 04/18/20 10/01/24 History Atorvastatin Calcium [Lipitor] 40 mg PO DAILY 07/01/23 10/01/24 History Losartan [Cozaar] 50 mg PO DAILY 07/01/23 10/01/24 History Nystatin 100,000Unit/gm Cream 1 applic TOPICAL DAILY 07/01/23 10/01/24 History [Mycostatin Cream] Ciprofloxacin HCl [Cipro] 500 mg PO BID 7 Days #14 tab 07/04/23 10/01/24 Rx Furosemide [Lasix] 40 mg PO DAILY 90 Days #90 tab 07/04/23 10/01/24 Rx Allergies Allergy/AdvReac Type Severity Reaction Status Date / Time No Known Allergies Allergy Verified 10/01/24 15:13 Physical Exam Vitals: Vital Signs Temp Pulse Pulse Resp BP BP Pulse Ox 10/02/24 07:00 97.9 F 99 16 146/86 96 10/02/24 02:00 98.5 F 67 17 159/74 98 10/01/24 22:00 97.8 F 87 17 155/79 94 L 10/01/24 21:00 70 18 138/72 100 10/01/24 20:47 70 10/01/24 20:38 68 10/01/24 17:16 97.4 F L 65 22 152/84 99 10/01/24 15:43 61 16 145/82 97 10/01/24 14:38 100 10/01/24 12:36 97.5 F L 71 20 162/76 100 Intake and Output 10/01/24 10/02/24 10/02/24 22:59 06:59 14:59 Other: Voiding Method Self-Catheterization # Voids 2 1 Weight 77.111 kg Results 10/01/24 13:47 10/01/24 13:47 Cardiac Enzymes 10/01/24 10/01/24 Range/Units 13:47 13:47 AST 22 (17-59) U/L Troponin I 0.022 (0.000-0.034) ng/mL Coagulation 10/01/24 Range/Units 13:47 PT 11.4 (10.0-12.5) sec APTT 27.9 (22.0-30.0) sec CBC 10/01/24 Range/Units 13:47 WBC 6.9 (3.8-10.6) k/uL RBC 4.36 (4.30-5.90) m/uL Hgb 13.1 (13.0-17.5) gm/dL Hct 40.6 (39.0-53.0) % Plt Count 233 (150-450) k/uL Comprehensive Metabolic Panel 10/01/24 Range/Units 13:47 Sodium 140 (137-145) mmol/L Potassium 3.8 (3.5-5.1) mmol/L Chloride 104 (98-107) mmol/L Carbon Dioxide 24 (22-30) mmol/L BUN 19 (9-20) mg/dL Creatinine 1.27 H (0.66-1.25) mg/dL Glucose 102 H (74-99) mg/dL Calcium 9.1 (8.4-10.2) mg/dL AST 22 (17-59) U/L ALT 14 (4-49) U/L Alkaline Phosphatase 63 (38-126) U/L Total Protein 7.0 (6.3-8.2) g/dL Albumin 4.2 (3.5-5.0) g/dL Current Medications Generic Name Dose Route Start Last Admin Trade Name Freq PRN Reason Stop Dose Admin Acetaminophen 650 mg 10/01/24 14:48 Acetaminophen Tab 325 Mg Tab PO Q6HR PRN Mild Pain or Fever > 100.5 Albuterol/Ipratropium 3 ml 10/01/24 20:00 10/01/24 20:37 Ipratropium-Albuterol 3 Ml Neb INHALATION 3 ml RT-TID OBDULIA Administration Atorvastatin Calcium 40 mg 10/02/24 09:00 Atorvastatin 40 Mg Tab PO DAILY OBDLUIA Clopidogrel Bisulfate 75 mg 10/02/24 09:00 Clopidogrel 75 Mg Tab PO DAILY OBDULIA Furosemide 40 mg 10/01/24 15:00 10/01/24 21:47 Furosemide 10 Mg/Ml 4 Ml Vial IV 40 mg BID OBDULIA Administration Levothyroxine Sodium 125 mcg 10/02/24 06:30 10/02/24 06:05 Levothyroxine 125 Mcg Tab PO 125 mcg DAILY@0630 OBDULIA Administration Losartan Potassium 50 mg 10/02/24 09:00 Losartan 50 Mg Tab PO DAILY OBDULIA Naloxone HCl 0.2 mg 10/01/24 14:48 Naloxone 0.4 Mg/Ml 1 Ml Vial IV Q2M PRN Opioid Reversal Intake and Output 10/01/24 10/02/24 10/02/24 22:59 06:59 14:59 Other: Voiding Method Self-Catheterization # Voids 2 1 Weight 77.111 kg 10/01/24 13:47 10/01/24 13:47
--- NOTE | 2024-10-02 17:29 | CA ---
Transthoracic Echo Report Name: Will Perez Age: 84 Gender: M : 1940 Exam Date: 10/02/2024 14:20 Exam Location: [facility] Ht (in): 66 Wt (lb): 170 Ordering Physician: Nathan Rueda MD Attending/Referring Phys: Supervisor Stripping Tomasa Richards RDCS Procedure CPT: Indications: chf Cardiac Hx: Technical Quality: Fair Contrast 1: Total Dose (mL): Contrast 2: Total Dose (mL): MEASUREMENTS (Male / Female) Normal Values 2D ECHO LV Diastolic Diameter PLAX 5.7 cm 4.2 - 5.9 / 3.9 - 5.3 cm IVS Diastolic Thickness 0.7 cm 0.6 - 1.0 / 0.6 - 0.9 cm LVPW Diastolic Thickness 0.7 cm 0.6 - 1.0 / 0.6 - 0.9 cm LV Relative Wall Thickness 0.3 LVOT Diameter 1.9 cm LV Diastolic Volume MOD BP 125.6 cm??? 67 - 155 / 56 - 104 cm??? LV Systolic Volume MOD BP 56.8 cm??? 22 - 58 / 19 - 49 cm??? LV Ejection Fraction MOD BP 54.8 % >= 55 % LV Cardiac Index MOD BP 2445.5 cm???/min???m??? LV Diastolic Volume MOD 4C 127.7 cm??? LV Systolic Volume MOD 4C 61.1 cm??? LV Ejection Fraction MOD 4C 52.2 % LV Cardiac Index MOD 4C 2370.2 cm???/min???m??? LV Diastolic Length 4C 8.7 cm LV Systolic Length 4C 6.8 cm LV Diastolic Volume MOD 2C 113.5 cm??? LV Systolic Volume MOD 2C 52.5 cm??? LV Ejection Fraction MOD 2C 53.8 % LV Cardiac Index MOD 2C 2171.3 cm???/min???m??? LV Diastolic Length 2C 8.0 cm LV Systolic Length 2C 6.8 cm LA Volume 77.8 cm??? 18 - 58 / 22 - 52 cm??? LA Volume Index 40.7 cm???/m??? 16 - 28 cm???/m??? DOPPLER AV Peak Velocity 131.4 cm/s AV Peak Gradient 6.9 mmHg AV Mean Velocity 90.0 cm/s AV Mean Gradient 3.7 mmHg AV Velocity Time Integral 27.4 cm LVOT Peak Velocity 100.7 cm/s LVOT Peak Gradient 4.1 mmHg LVOT Velocity Time Integral 19.6 cm LVOT Stroke Volume 55.2 cm??? LVOT Stroke Volume Index 29.6 ml/m??? LVOT Cardiac Index 1962.8 cm???/min???m??? AV Area Cont Eq vti 2.0 cm??? AV Area Cont Eq pk 2.2 cm??? MV Area PHT 3.3 cm??? Mitral E Point Velocity 53.0 cm/s Mitral A Point Velocity 89.2 cm/s Mitral E to A Ratio 0.6 MV Deceleration Time 230.7 ms TR Peak Velocity 259.9 cm/s TR Peak Gradient 27.0 mmHg Right Atrial Pressure 5.0 mmHg Pulmonary Artery Systolic Pressu 32.0 mmHg Right Ventricular Systolic Press 32.0 mmHg FINDINGS Left Ventricle Left ventricular ejection fraction is estimated at 50-55 %. Mildly decreased left ventricular ejection fraction. Left ventricular cavity size normal. Left ventricular wall thickness normal. Inferior and inferolateral wall hypokinesis. Right Ventricle Normal right ventricular size and function. Right ventricular systolic pressure within normal limits. Right Atrium Normal right atrial size. Left Atrium Mild left atrial dilatation Mitral Valve Mitral valve thickened. No evidence for mitral valve prolapse. No mitral stenosis. Mild mitral regurgitation. Aortic Valve Aortic valve not well visualized. No aortic stenosis. Mild aortic regurgitation. Tricuspid Valve Structurally normal tricuspid valve. No tricuspid stenosis. Mild tricuspid regurgitation. Pulmonic Valve Pulmonic valve not well visualized. Pericardium No pericardial effusion. Aorta Aortic annulus normal. CONCLUSIONS LVEF 50 to 55% Inferior and inferolateral wall hypokinesia Mild left atrial dilatation Mild Polyvalvular regurgitation. Normal RV size and systolic function. RVSP estimated 32 mmHg Previewed by: Dr Lester Castañeda (Electronically Signed) Final Date: 02 October 2024 17:28
--- NOTE | 2024-10-02 21:35 | HP ---
HISTORY AND PHYSICAL HISTORY: An 84-year-old white male in the hospital with CHF, acute on chronic respiratory failure, admitted for CHF and fluid retention in his lower leg, swelling over the past couple months. He says there is nothing acute. No cough, congestion. He has chronic shortness of breath. HOME MEDICINES: 1. Cozaar 50 daily. 2. Levothyroxine 125 daily. 3. Lipitor 40 daily. 4. Plavix 75 daily. 5. Aspirin 81 daily. ALLERGIES: Negative. PAST MEDICAL HISTORY: Coronary artery disease, hypertension, prostate disorder, hypothyroidism. SURGICAL HISTORY: Stent, hernia repair, straight catheterization at home for enlarged prostate. PHYSICAL EXAMINATION: VITAL SIGNS: Temperature 97.5, pulse 71, respiratory rate 18 to 20, blood pressure 162/70, O2 100%. EXTREMITIES: He has 2 to 3+ edema in his lower extremities. CARDIOVASCULAR: S1, S2. LUNGS: Rales at the bases. GI: Soft. HEMATOLOGY: Negative Homans. PSYCH: Fair mood and affect. NEUROLOGIC: Alert and oriented x3. IMPRESSION: Congestive heart failure exacerbation, acute on chronic. Do an echo and get Cardiology consult. Please see further orders. MMODL / IJN: [id number] /
[2024-10-03 07:49] VITALS: RESP 16
[2024-10-03 09:29] LABS: BUN/Creat Ratio 20.43 Ratio (12.00-20.00); Blood Urea Nitrogen 28.6 mg/dL (9.0-27.0); Glucose 106 mg/dL (70-110)
[2024-10-03 09:30] LABS: Calcium 8.9 mg/dL (8.7-10.3); Carbon Dioxide 24.4 mmol/L (21.6-31.8); Chloride 101 mmol/L (96-109); Potassium 3.6 mmol/L (3.5-5.5); Sodium 138 mmol/L (135-145)
[2024-10-03] MEDS: BUMETANIDE 1 MG TAB PO SCH (09:53)
--- NOTE | 2024-10-03 11:41 | P.PN ---
Subjective Progress Note Date: 10/03/24 Consult reason: congestive heart failure History of present illness: This is an 84-year-old male follows with a chip unloader outside of [facility] with past medical history of coronary artery disease with prior stenting details are not available, history of cardiomyopathy, hypertension, dyslipidemia. We have been asked to evaluate the patient for CHF. Patient states that he presented to the hospital due to lower extremity edema which she states is much improved today. He states his feet almost look like they are normal to him. Patient denies significant shortness of breath. No chest pain. Blood pressure 146/86, heart rate 99, pulse ox 96% on room air. Patient has been started on IV Lasix 40 mg twice daily. -EKG: Sinus arrhythmia with PVCs -Chest x-ray: Mild cardiomegaly. Possible underlying COPD. No acute process. -Laboratory studies: CBC and electrolytes within normal limits. BUN 19 and creatinine 1.27. Troponin negative x 1. proBNP 1940. -Home cardiac medications: Aspirin 81 mg daily, atorvastatin 40 mg daily, Plavix 75 mg daily, Lasix 40 mg daily, losartan 50 mg daily. -Echocardiogram performed 07/03/2023 reveals EF 40%. 10/03/2024 Patient seen and examined. Patient states that his lower extremity edema is completely gone and he is back to normal. He denies any chest pain. No shortness of breath. He has been maintained on oral Bumex 1 mg daily and Farxiga and Coreg were added yesterday. Blood pressure 142/52, heart rate in the 60s to 80s, pulse ox 100% on room air. Echocardiogram reveals EF of 50 to 55%, inferior and inferior lateral wall hypokinesia. Mild left atrial dilatation. Mild probably valvular regurgitation. RVSP 32 mmHg. Physical examination: Gen: This is an 84-year-old male in no acute distress VS: reviewed HEENT: Head is atraumatic, normocephalic. Pupils equal, round. Sclerae is an icteric. NECK: Supple. Mild JVD. LUNGS: Clear to auscultation. No wheezes or rhonchi. No intercostal retractions. HEART: Regular rate and rhythm. No murmur. ABDOMEN: Soft No tenderness. EXTREMITIES: No lower extremity edema. No calf tenderness. NEUROLOGICAL: Patient is awake, alert and oriented x3. Assessment: Acute on chronic systolic heart failure CAD with prior stenting, unknown details Hypertension Dyslipidemia Plan: Continue patient's home cardiac medications Continue oral Bumex 1 mg daily, Farxiga 10 mg daily, Coreg 6.25 mg twice daily Patient is cleared for discharge from cardiology perspective. Patient may follow-up in the office with his primary chip unloader in 1 week. Nurse practitioner note has been reviewed, I agree with documented findings and plan of care. Patient was seen and examined. Objective - Vital Signs Vital signs: Vital Signs Temp 97.5 F L 10/03/24 06:55 Pulse 85 10/03/24 07:59 Resp 16 10/03/24 06:55 BP 142/52 10/03/24 06:55 Pulse Ox 100 10/03/24 06:55 FiO2 Intake & Output 10/02/24 10/03/24 10/03/24 18:59 06:59 18:59 Intake Total 221 Balance 221 Intake: Oral 221 Other: Voiding Method Self-Catheterization Self-Catheterization # Voids 3 2 # Bowel Movements 1 - Labs CBC & Chem 7: 10/01/24 13:47 10/03/24 02:44
[2024-10-03 14:59] VITALS: BP 137/78; TEMP 98
[2024-10-03 15:19] VITALS: PULSE 80
== END 2024-10-03 15:37 | disposition home or self-care (01) ==
LOC: EC 12:35 → 6NMEDSUR 15:38
PROVIDERS: ADMIT Family Medicine; ATTEND Family Medicine
DX: I11.0 Hypertensive heart disease with heart failure (principal); I50.23 Acute on chronic systolic (congestive) heart failure; J96.20 Acute and chronic respiratory failure, unspecified whether with hypoxia or hypercapnia; I25.10 Atherosclerotic heart disease of native coronary artery without angina pectoris; I42.9 Cardiomyopathy, unspecified; E78.5 Hyperlipidemia, unspecified; N40.0 Benign prostatic hyperplasia without lower urinary tract symptoms; E03.9 Hypothyroidism, unspecified; Z87.891 Personal history of nicotine dependence; Z95.5 Presence of coronary angioplasty implant and graft; Z79.02 Long term (current) use of antithrombotics/antiplatelets; Z79.82 Long term (current) use of aspirin; Z79.890 Hormone replacement therapy; Z79.899 Other long term (current) drug therapy
CPT/HCPCS: 96376 ×2; 96374; 99285; 36415; 94640 ×4; 93005; 93306; 83880; 80053; 80048; 84484; 85025; 85610; 85730; 71046; G0378 ×3; J1940 ×2

== ENCOUNTER 2025-03-15 17:02 | Inpatient (IN) | payer MEDICARE ==
--- NOTE | 2025-03-15 17:43 | XR ---
EXAMINATION TYPE: XR chest 2V DATE OF EXAM: 03/15/2025 5:40 PM COMPARISON: Prior chest radiographs, most recent dated 10/11/2024. CLINICAL INDICATION: Male, 84 years old with history of syncope; [facility] TECHNIQUE: XR chest 2V Frontal and lateral views of the chest. FINDINGS: Lungs/Pleura: There is no evidence of pleural effusion, focal consolidation, or pneumothorax. Pulmonary vascularity: Unremarkable. Heart/mediastinum: Cardiomediastinal silhouette is unremarkable. Musculoskeletal: No acute osseous pathology. Other findings: None IMPRESSION: No acute cardiopulmonary disease/process. [facility], , 03/15/2025 5:41 PM
--- NOTE | 2025-03-15 17:46 | ED ---
General Adult HPI - General Chief complaint: Syncope Stated complaint: Syncope Time Seen by Provider: 03/15/25 17:04 Source: patient, EMS, RN notes reviewed, old records reviewed Mode of arrival: EMS Limitations: no limitations - History of Present Illness Initial comments: 84-year-old male presenting with near syncopal episode. Patient had been out in the heat all day today. He states he was getting out of his son's truck and felt lightheaded and nearly passed out. He denies head trauma or injury. Patient states he is on a blood thinner. Denies chest pain. Denies palpitations. Denies abdominal pain nausea or vomiting. Denies cough or fever. - Related Data Home Medications Medication Instructions Recorded Confirmed Aspirin 81 mg PO DAILY 04/18/20 10/01/24 Clopidogrel [Plavix] 75 mg PO DAILY 04/18/20 10/01/24 Levothyroxine Sodium [Synthroid] 125 mcg PO DAILY 04/18/20 10/01/24 Atorvastatin Calcium [Lipitor] 40 mg PO DAILY 07/01/23 10/01/24 Losartan [Cozaar] 50 mg PO DAILY 07/01/23 10/01/24 Nystatin 100,000Unit/gm Cream 1 applic TOPICAL DAILY 07/01/23 10/01/24 [Mycostatin Cream] Previous Rx's Medication Instructions Recorded Ciprofloxacin HCl [Cipro] 500 mg PO BID 7 Days #14 tab 07/04/23 Acetaminophen Tab [Tylenol] 650 mg PO Q6HR PRN tab 10/03/24 Bumetanide [BUMEX] 1 mg PO DAILY 90 Days #90 tab 10/03/24 Dapagliflozin Propanediol [Farxiga] 10 mg PO DAILY 90 Days #90 tab 10/03/24 Ipratropium-Albuterol Nebulize 3 ml INHALATION RT-TID 30 Days #90 10/03/24 [Duoneb 0.5 mg-3 mg/3 ml Soln] each carvediloL [Coreg] 6.25 mg PO BID-W/MEALS 90 Days 10/03/24 #180 tab Allergies Allergy/AdvReac Type Severity Reaction Status Date / Time No Known Allergies Allergy Verified 10/01/24 15:13 Review of Systems ROS Statement: Those systems with pertinent positive or pertinent negative responses have been documented in the HPI. ROS Other: All systems not noted in ROS Statement are negative. Past Medical History Past Medical History: Coronary Artery Disease (CAD), Heart Failure, Hyperlipidemia, Hypertension, Prostate Disorder, Thyroid Disorder Additional Past Medical History / Comment(s): hx polyps, constipation, pt thinks may have had heart attack 2 yrs ago, uses straight cath at home due to enlarged prostate, Hard of hearing History of Any Multi-Drug Resistant Organisms: None Reported Past Surgical History: Heart Catheterization With Stent, Hernia Repair Additional Past Surgical History / Comment(s): 3 cardiac stents, Past Anesthesia/Blood Transfusion Reactions: No Reported Reaction Date of Last Stent Placement:: 05/2019 Past Psychological History: No Psychological Hx Reported Smoking Status: Former smoker - Past Family History Mother Family Medical History: No Reported History Additional Family Medical History / Comment(s): at 40, "big drinker" General Exam Limitations: no limitations General appearance: alert, in no apparent distress Head exam: Present: atraumatic, normocephalic Eye exam: Present: normal appearance, PERRL ENT exam: Present: normal exam Neck exam: Present: normal inspection. Absent: tenderness, meningismus Respiratory exam: Present: normal lung sounds bilaterally. Absent: respiratory distress, wheezes Cardiovascular Exam: Present: bradycardia, irregular rhythm GI/Abdominal exam: Present: soft. Absent: distended, tenderness, guarding, rebound Extremities exam: Present: pedal edema Neurological exam: Present: alert, oriented X3, CN II-XII intact. Absent: motor sensory deficit Psychiatric exam: Present: normal affect, normal mood Skin exam: Present: diaphoretic Course Vital Signs 03/15/25 03/15/25 03/15/25 17:04 17:14 18:25 Temperature 98.4 F Pulse Rate 50 L 52 L Pulse Rate [ 46 L Marketing Sales Consultant ] Respiratory 18 18 Rate Blood Pressure 108/60 117/99 O2 Sat by Pulse 97 100 Oximetry Medical Decision Making - Medical Decision Making Was pt. sent in by a medical professional or institution (, PA, SEO SPECIALIST, urgent care, hospital, or senior care...) When possible be specific @ -No Did you speak to anyone other than the patient for history (EMS, parent, family, police, friend...)? What history was obtained from this source @ -No Did you review nursing and triage notes (agree or disagree)? Why? @ -I reviewed and agree with nursing and triage notes Were old charts reviewed (outside hosp., previous admission, EMS record, old EKG, old radiological studies, urgent care reports/EKG's, senior care records)? Report findings @ -No old charts were reviewed Differential Syncope: Valvular disease, hypertrophic cardiomyopathy, pulmonary embolism, tamponade, tachycardia, bradycardia, [place], hypovolemia, hemorrhage, dissection, anemia, intracranial hemorrhage, seizure, hypoglycemia, carbon monoxide poisoning, this is not meant to be an all-inclusive list. EKG interpreted by me (3pts min.). @ -Initial EKG at 1715, ventricular rate of 48, suspect complete heart block, QRS duration 115, QTc 493 Repeat EKG at 1748 shows second-degree type I heart block with a ventricular rate of 43 NH interval variable, QRS duration 109, QTc [address] segment elevation X-rays interpreted by me (1pt min.). @Chest x-ray negative for acute cardiopulmonary disease CT interpreted by me (1pt min.). @ -None done U/S interpreted by me (1pt. min.). @ -None done What testing was considered but not performed or refused? (CT, X-rays, U/S, labs)? Why? @ -None What meds were considered but not given or refused? Why? @ -None Did you discuss the management of the patient with other professionals (professionals i.e. , PA, SEO SPECIALIST, lab, RT, psych nurse, director of social services, processing spec, teacher, real estate officer, registered nurse hh case manager)? Give summary @ -Dr. Rueda will admit, Dr. Castañeda covering for cardiology aware Was smoking cessation discussed for >3mins.? @ -No Was critical care preformed (if so, how long)? @ -Yes, 35 minutes Were there social determinants of health that impacted care today? How? (Homelessness, low income, unemployed, alcoholism, drug addiction, transportation, low edu. Level, literacy, decrease access to med. care, retirement, rehab)? @ -No Was there de-escalation of care discussed even if they declined (Discuss DNR or withdrawal of care, Hospice)? DNR status @ -No What co-morbidities impacted this encounter? (DM, HTN, Smoking, COPD, CAD, Cancer, CVA, ARF, Chemo, Hep., AIDS, mental health diagnosis, sleep apnea, morbid obesity)? @ -None Was patient admitted / discharged? Hospital course, mention meds given and route, prescriptions, significant lab abnormalities, going to OR and other pertinent info. @ -84-year-old male presenting with syncopal episode and bradycardia. Patient has irregular heartbeat which is bradycardic, suspect variable block. Blood pressure remained stable. Laboratory testing is unremarkable including normal potassium. Patient does take Coreg and this medication will be held. Cardiology is aware of the heart rhythm. Patient admitted to his primary care provider with cardiology on consult. Undiagnosed new problem with uncertain prognosis? @ -No Drug Therapy requiring intensive monitoring for toxicity (Heparin, Nitro, Insulin, Cardizem)? @ -No Were any procedures done? @ -No Diagnosis/symptom? @ -[Bradycardia, variable heart block, syncope Acute, or Chronic, or Acute on Chronic? @ -Acute Uncomplicated (without systemic symptoms) or Complicated (systemic symptoms)? @ -[default Side effects of treatment? @ -No Exacerbation, Progression, or Severe Exacerbation? @ -No Poses a threat to life or bodily function? How? (Chest pain, USA, IN, pneumonia, PE, COPD, DKA, ARF, appy, cholecystitis, CVA, Diverticulitis, Homicidal, Suicidal, threat to staff... and all critical care pts) @ -Yes, complete heart block - Lab Data Result diagrams: 03/15/25 17:33 03/15/25 17:33 Lab Results 03/15/25 03/15/25 03/15/25 Range/Units 17:33 17:33 17:33 WBC 8.30 (4.50-10.00) 10*3/uL RBC 3.65 L (4.40-5.60) 10*6/uL Hgb 11.2 L (13.0-17.0) g/dL Hct 33.3 L (39.6-50.0) % MCV 91.2 (80.0-97.0) fL MCH 30.7 (27.0-32.0) pg MCHC 33.6 (32.0-37.0) g/dL Plt Count 200 (140-440) 10*3/uL MPV 10.4 (9.5-12.2) fL Immature Gran % (Auto) 0.4 % Neutrophils % 59.0 % Lymphocytes % 21.4 % Monocytes % 12.2 % Eosinophils % 5.7 % Basophils % 1.3 % Immature Gran # 0.03 (0.00-0.04) 10*3/uL Neutrophils # 4.90 (1.80-7.70) 10*3/uL Lymphocytes # 1.78 (0.90-5.00) 10*3/uL Monocytes # 1.01 H (0.20-1.00) 10*3/uL Eosinophils # 0.47 H (0.04-0.35) 10*3/uL Basophils # 0.11 H (0.00-0.10) 10*3/uL PT 11.5 (10.0-12.5) sec INR 1.0 (<1.2) APTT 24.2 (22.0-30.0) sec Sodium 140 (137-145) mmol/L Potassium 3.6 (3.5-5.1) mmol/L Chloride 108 H (98-107) mmol/L Carbon Dioxide 22 (22-30) mmol/L Anion Gap 10 mmol/L BUN 30 H (9-20) mg/dL Creatinine 1.57 H (0.66-1.25) mg/dL Est GFR (CKD-EPI)AfAm 46 (>60 ml/min/1.73 sqM) Est GFR (CKD-EPI)NonAf 39 (>60 ml/min/1.73 sqM) Glucose 103 H (74-99) mg/dL Calcium 8.8 (8.4-10.2) mg/dL Magnesium 1.7 (1.6-2.3) mg/dL Total Bilirubin 0.8 (0.2-1.3) mg/dL AST 24 (17-59) U/L ALT 17 (4-49) U/L Alkaline Phosphatase 52 (38-126) U/L Troponin I (0.000-0.034) ng/mL Total Protein 6.2 L (6.3-8.2) g/dL Albumin 3.7 (3.5-5.0) g/dL 03/15/25 Range/Units 17:33 WBC (4.50-10.00) 10*3/uL RBC (4.40-5.60) 10*6/uL Hgb (13.0-17.0) g/dL Hct (39.6-50.0) % MCV (80.0-97.0) fL MCH (27.0-32.0) pg MCHC (32.0-37.0) g/dL Plt Count (140-440) 10*3/uL MPV (9.5-12.2) fL Immature Gran % (Auto) % Neutrophils % % Lymphocytes % % Monocytes % % Eosinophils % % Basophils % % Immature Gran # (0.00-0.04) 10*3/uL Neutrophils # (1.80-7.70) 10*3/uL Lymphocytes # (0.90-5.00) 10*3/uL Monocytes # (0.20-1.00) 10*3/uL Eosinophils # (0.04-0.35) 10*3/uL Basophils # (0.00-0.10) 10*3/uL PT (10.0-12.5) sec INR (<1.2) APTT (22.0-30.0) sec Sodium (137-145) mmol/L Potassium (3.5-5.1) mmol/L Chloride (98-107) mmol/L Carbon Dioxide (22-30) mmol/L Anion Gap mmol/L BUN (9-20) mg/dL Creatinine (0.66-1.25) mg/dL Est GFR (CKD-EPI)AfAm (>60 ml/min/1.73 sqM) Est GFR (CKD-EPI)NonAf (>60 ml/min/1.73 sqM) Glucose (74-99) mg/dL Calcium (8.4-10.2) mg/dL Magnesium (1.6-2.3) mg/dL Total Bilirubin (0.2-1.3) mg/dL AST (17-59) U/L ALT (4-49) U/L Alkaline Phosphatase (38-126) U/L Troponin I 0.019 (0.000-0.034) ng/mL Total Protein (6.3-8.2) g/dL Albumin (3.5-5.0) g/dL Critical Care Time Critical Care Time: Yes Total Critical Care Time: 35 Disposition Clinical Impression: Syncope, Heart block Disposition: ADMITTED IP TO THIS HOSP Condition: Stable Is patient prescribed a controlled substance at d/c from ED?: No Referrals: Nathan Rueda MD [Primary Care Provider] - 1-2 days Time of Disposition: 19:57
[2025-03-15 17:50] LABS: Basophils # (A) 0.11 10*3/uL (0.00-0.10); Basophils % (A) 1.3 %; Eosinophils # (A) 0.47 10*3/uL (0.04-0.35); Eosinophils % (A) 5.7 %; HCT 33.3 % (39.6-50.0); HGB 11.2 g/dL (13.0-17.0); Lymphocytes # (A) 1.78 10*3/uL (0.90-5.00); Lymphocytes % (A) 21.4 %; MCH 30.7 pg (27.0-32.0); MCHC 33.6 g/dL (32.0-37.0); MCV 91.2 fL (80.0-97.0); Mean Platelet Volume 10.4 fL (9.5-12.2); Monocytes # (A) 1.01 10*3/uL (0.20-1.00); Monocytes % (A) 12.2 %; Platelet Count 200 10*3/uL (140-440); RBC 3.65 10*6/uL (4.40-5.60); RDW 13.9 % (11.5-14.5)
[2025-03-15] MEDS: SODIUM CHLORIDE 0.9% 500 ML 500 ML IV STA (17:55)
[2025-03-15 18:02] LABS: Partial Thromboplastin Time 24.2 sec (22.0-30.0); Prothrombin Time 11.5 sec (10.0-12.5)
[2025-03-15 18:06] LABS: ALT 17 U/L (4-49); AST 24 U/L (17-59); African American GFR (CKD) 46 (>60 ml/min/1.73 sqM); Albumin 3.7 g/dL (3.5-5.0); Alkaline Phosphatase 52 U/L (38-126); Anion Gap 10 mmol/L; Blood Urea Nitrogen 30 mg/dL (9-20); Calcium 8.8 mg/dL (8.4-10.2); Carbon Dioxide 22 mmol/L (22-30); Chloride 108 mmol/L (98-107); Glucose 103 mg/dL (74-99); Magnesium 1.7 mg/dL (1.6-2.3); Non-African American GFR(CKD) 39 (>60 ml/min/1.73 sqM); Potassium 3.6 mmol/L (3.5-5.1); Sodium 140 mmol/L (137-145); Total Bilirubin 0.8 mg/dL (0.2-1.3); Total Protein 6.2 g/dL (6.3-8.2)
[2025-03-15] MEDS ORDERED: ACETAMINOPHEN TAB 325 MG TAB PO PRN (19:44)
[2025-03-15] MEDS ORDERED: NALOXONE 0.4 MG/ML 1 ML VIAL IV PRN (19:44)
[2025-03-15] MEDS: SODIUM CHLORIDE 0.9% 1,000 ML IV SCH (20:19)
--- NOTE | 2025-03-15 22:09 | HP ---
HISTORY AND PHYSICAL MMODL / IJN: [id number] /
[2025-03-16 00:25] LABS: T4, Free (Free Thyroxine) 2.19 ng/dL (0.78-2.19)
[2025-03-16] MEDS: IPRATROPIUM-ALBUTEROL 3 ML NEB INHALATION SCH (00:49)
[2025-03-16] MEDS: LEVOTHYROXINE 125 MCG TAB PO SCH (06:55)
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
[2025-03-16] MEDS: ASPIRIN 81 MG PO SCH (10:25)
[2025-03-16] MEDS: CLOPIDOGREL 75 MG TAB PO SCH (10:25)
[2025-03-16] MEDS: ATORVASTATIN 40 MG TAB PO SCH (10:25)
[2025-03-16] MEDS: DAPAGLIFLOZIN PROPANEDIOL 10 MG TABLET PO SCH (10:25)
[2025-03-16] MEDS: LOSARTAN 50 MG TAB PO SCH (10:26)
--- NOTE | 2025-03-16 14:56 | P.CRDCN ---
History of Present Illness Consult date: 03/16/25 History of present illness: HISTORY OF PRESENTING ILLNESS: 84-year-old sees a roller picker outside of the town. Past history of CAD status post PCI, details not available, history of cardiomyopathy hypertension dyslipidemia. In September 2024 was admitted for mild CHF exacerbation and was treated with IV diuretics. He was started on Farxiga and Coreg. His echo showe d an EF of 55 to 60%, inferior and inferolateral wall hypokinesia, Polyvalvular calcification, RVSP 32 mmHg, mild LA dilatation This time he presented to the hospital because of presyncopal symptoms and lightheadedness. He was out in the heat all day yesterday. When he was trying to get out of his son's truck he felt lightheaded and nearly passed out. On admission he was noticed to be bradycardic with concerns of Mobitz type I secondary AV block Home meds losartan 50, Farxiga 10, aspirin, Plavix, Lipitor, Coreg 6.25 twice daily, Bumex 1 mg p.o. daily Admission Vitals: 108/60, heart rate 68 bpm, repeat BP 137/60 Admission Labs: Hb 11, BUN 30, creatinine 1.57, TSH 0.3, free T4- 2.19. [facility] creatinine is around 1.4 Admission EKG: Sinus rhythm with Mobitz type I secondary AV block, left axis deviation, mild IVCD When compared to previous EKG, Mobitz type I heart block appears to be new. Imaging: Chest x-ray does not show any signs of significant/no consolidation CT cervical spine did not show any acute trauma CT head did not show any acute intracranial process REVIEW OF SYSTEMS: 14 point review of system is negative except what is mentioned above in HPI. PHYSICAL EXAMINATION: Neck: Brisk carotid upstroke, no jugular venous distention. Lungs: Clear to auscultation. Heart: Regular rate and rhythm, S1-S2, , no murmur or rub. Abdomen: Soft nontender, positive bowel sounds. Extremities: No edema, intact distal pulses. Neuro: Alert, oritented, no focal deficits. Detailed neuro exam was not performed. ASSESSMENT: # Lightheadedness and presyncope, likely from dehydration # Mobitz type 1 second-degree AV block # Chronic HFpEF, NYHA class III, currently 1 week # LYNN # CKD # Essential hypertension PLAN: Obtain orthostatic vital signs Continue aspirin, Plavix, Lipitor. Follow-up with roller picker outpatient to reevaluate need for DAPT. Currently losartan 50. Hold Coreg. Do not resume on discharge Hold Bumex today. Restart Bumex 1 mg p.o. daily to go home with. Outpatient follow-up with primary roller picker or Dr. Castañeda whoever is convenient for patient. Recommend 7-day extended Holter monitor Patient is cleared from cardiovascular standpoint PT OT evaluation and placement as per primary team Lester Castañeda MD, FACC, RPVI Thank you for allowing [facility] to participate in this patient's care. Feel free to reach out in case of any followup questions. Past Medical History Past Medical History: Coronary Artery Disease (CAD), Heart Failure, Hyperlipidemia, Hypertension, Prostate Disorder, Thyroid Disorder Additional Past Medical History / Comment(s): hx polyps, constipation, pt thinks may have had heart attack 2 yrs ago, uses straight cath at home due to enlarged prostate, Hard of hearing History of Any Multi-Drug Resistant Organisms: None Reported Past Surgical History: Heart Catheterization With Stent, Hernia Repair Additional Past Surgical History / Comment(s): 3 cardiac stents, Past Anesthesia/Blood Transfusion Reactions: No Reported Reaction Date of Last Stent Placement:: 05/2019 Past Psychological History: No Psychological Hx Reported Additional Psychological History / Comment(s): poor historian Smoking Status: Former smoker Past Alcohol Use History: None Reported Additional Past Alcohol Use History / Comment(s): pipe use over past 50 yrs, quit smoking 2018 Past Drug Use History: None Reported - Past Family History Mother Family Medical History: No Reported History Additional Family Medical History / Comment(s): at 40, "big drinker" Medications and Allergies Home Medications Medication Instructions Recorded Confirmed Type Aspirin 81 mg PO DAILY 04/18/20 10/01/24 History Clopidogrel [Plavix] 75 mg PO DAILY 04/18/20 10/01/24 History Levothyroxine Sodium [Synthroid] 125 mcg PO DAILY 04/18/20 10/01/24 History Atorvastatin Calcium [Lipitor] 40 mg PO DAILY 07/01/23 10/01/24 History Losartan [Cozaar] 50 mg PO DAILY 07/01/23 10/01/24 History Nystatin 100,000Unit/gm Cream 1 applic TOPICAL DAILY 07/01/23 10/01/24 History [Mycostatin Cream] Ciprofloxacin HCl [Cipro] 500 mg PO BID 7 Days #14 tab 07/04/23 10/01/24 Rx Acetaminophen Tab [Tylenol] 650 mg PO Q6HR PRN tab 10/03/24 Rx Bumetanide [BUMEX] 1 mg PO DAILY 90 Days #90 tab 10/03/24 Rx Dapagliflozin Propanediol [Farxiga] 10 mg PO DAILY 90 Days #90 tab 10/03/24 Rx Ipratropium-Albuterol Nebulize 3 ml INHALATION RT-TID 30 Days #90 10/03/24 Rx [Duoneb 0.5 mg-3 mg/3 ml Soln] each carvediloL [Coreg] 6.25 mg PO BID-W/MEALS 90 Days 10/03/24 Rx #180 tab Allergies Allergy/AdvReac Type Severity Reaction Status Date / Time No Known Allergies Allergy Verified 10/01/24 15:13 Physical Exam Vitals: Vital Signs Temp Pulse Pulse Pulse Resp BP BP 03/16/25 13:48 98.2 F 64 18 03/16/25 08:25 68 03/16/25 07:55 97.7 F 68 15 137/76 03/16/25 03:18 97.8 F 72 17 135/79 03/15/25 23:02 97.3 F L 72 18 155/66 03/15/25 22:00 62 18 117/65 03/15/25 21:00 66 18 100/56 03/15/25 20:12 72 16 127/80 03/15/25 18:25 52 L 18 117/99 03/15/25 17:14 46 L 03/15/25 17:04 98.4 F 50 L 18 108/60 BP Pulse Ox 03/16/25 13:48 137/60 97 03/16/25 08:25 100 03/16/25 07:55 100 03/16/25 03:18 100 03/15/25 23:02 100 03/15/25 22:00 99 03/15/25 21:00 99 03/15/25 20:12 100 03/15/25 18:25 100 03/15/25 17:14 03/15/25 17:04 97 Intake and Output 03/15/25 03/16/25 03/16/25 22:59 06:59 14:59 Intake Total 118 Balance 118 Intake: Oral 118 Other: # Voids 1 1 Weight 74.843 kg Results 03/15/25 17:33 03/15/25 17:33 Cardiac Enzymes 03/15/25 03/15/25 Range/Units 17:33 17:33 AST 24 (17-59) U/L Troponin I 0.019 (0.000-0.034) ng/mL Coagulation 03/15/25 Range/Units 17:33 PT 11.5 (10.0-12.5) sec APTT 24.2 (22.0-30.0) sec CBC 03/15/25 Range/Units 17:33 WBC 8.30 (4.50-10.00) 10*3/uL RBC 3.65 L (4.40-5.60) 10*6/uL Hgb 11.2 L (13.0-17.0) g/dL Hct 33.3 L (39.6-50.0) % Plt Count 200 (140-440) 10*3/uL Comprehensive Metabolic Panel 03/15/25 Range/Units 17:33 Sodium 140 (137-145) mmol/L Potassium 3.6 (3.5-5.1) mmol/L Chloride 108 H (98-107) mmol/L Carbon Dioxide 22 (22-30) mmol/L BUN 30 H (9-20) mg/dL Creatinine 1.57 H (0.66-1.25) mg/dL Glucose 103 H (74-99) mg/dL Calcium 8.8 (8.4-10.2) mg/dL AST 24 (17-59) U/L ALT 17 (4-49) U/L Alkaline Phosphatase 52 (38-126) U/L Total Protein 6.2 L (6.3-8.2) g/dL Albumin 3.7 (3.5-5.0) g/dL Current Medications Generic Name Dose Route Start Last Admin Trade Name Freq PRN Reason Stop Dose Admin Acetaminophen 650 mg 03/15/25 19:44 Acetaminophen Tab 325 Mg Tab PO Q6HR PRN Mild Pain or Fever > 100.5 Albuterol/Ipratropium 3 ml 03/15/25 20:00 03/16/25 12:03 Ipratropium-Albuterol 3 Ml Neb INHALATION Not Given RT-TID OBDULIA Aspirin 81 mg 03/16/25 09:00 03/16/25 10:25 Aspirin 81 Mg PO 81 mg DAILY OBDULIA Administration Atorvastatin Calcium 40 mg 03/16/25 09:00 03/16/25 10:25 Atorvastatin 40 Mg Tab PO 40 mg DAILY OBDULIA Administration Clopidogrel Bisulfate 75 mg 03/16/25 09:00 03/16/25 10:25 Clopidogrel 75 Mg Tab PO 75 mg DAILY OBDULIA Administration Dapagliflozin 10 mg 03/16/25 09:00 03/16/25 10:25 Dapagliflozin Propanediol 10 Mg Tablet PO 10 mg DAILY OBDULIA Administration Sodium Chloride 1,000 mls @ 50 mls/hr 03/15/25 19:45 03/15/25 20:19 Saline 0.9% IV 50 mls/hr .Q20H OBDULIA Administration Levothyroxine Sodium 125 mcg 03/16/25 06:30 03/16/25 06:55 Levothyroxine 125 Mcg Tab PO 125 mcg DAILY@0630 OBDULIA Administration Losartan Potassium 50 mg 03/16/25 09:00 03/16/25 10:26 Losartan 50 Mg Tab PO 50 mg DAILY OBDULIA Administration Naloxone HCl 0.2 mg 03/15/25 19:44 Naloxone 0.4 Mg/Ml 1 Ml Vial IV Q2M PRN Opioid Reversal Intake and Output 03/15/25 03/16/25 03/16/25 22:59 06:59 14:59 Intake Total 118 Balance 118 Intake: Oral 118 Other: # Voids 1 1 Weight 74.843 kg 03/15/25 17:33 03/15/25 17:33
[2025-03-17] MEDS: BUMETANIDE 1 MG TAB PO SCH (08:48)
--- NOTE | 2025-03-17 12:01 | P.PN ---
Subjective HISTORY OF PRESENTING ILLNESS: 84-year-old sees a lavatory attendant outside of the town. Past history of CAD status post PCI, details not available, history of cardiomyopathy hypertension dyslipidemia. In September 2024 was admitted for mild CHF exacerbation and was treated with IV diuretics. He was started on Farxiga and Coreg. His echo showed an EF of 55 to 60%, inferior and inferolateral wall hypokinesia, Polyvalvular calcification, RVSP 32 mmHg, mild LA dilatation This time he presented to the hospital because of presyncopal symptoms and li ghtheadedness. He was out in the heat all day yesterday. When he was trying to get out of his son's truck he felt lightheaded and nearly passed out. On admission he was noticed to be bradycardic with concerns of Mobitz type I secondary AV block Home meds losartan 50, Farxiga 10, aspirin, Plavix, Lipitor, Coreg 6.25 twice daily, Bumex 1 mg p.o. daily Admission Vitals: 108/60, heart rate 68 bpm, repeat BP 137/60 Admission Labs: Hb 11, BUN 30, creatinine 1.57, TSH 0.3, free T4- 2.19. Baseline creatinine is around 1.4 Admission EKG: Sinus rhythm with Mobitz type I secondary AV block, left axis deviation, mild IVCD When compared to previous EKG, Mobitz type I heart block appears to be new. Imaging: Chest x-ray does not show any signs of significant/no consolidation CT cervical spine did not show any acute trauma CT head did not show any acute intracranial process 03/17/2025 Patient seen and examined sitting up in bed in no acute distress. Blood pressure 123/79 heart rate 84 afebrile maintaining oxygen saturation on room air. Telemetry reviewed, he has a known second-degree AV block maintaining heart rate greater than 45. No further dizziness. PHYSICAL EXAMINATION: Neck: Brisk carotid upstroke, no jugular venous distention. Lungs: Clear to auscultation. Heart: Regular rate and rhythm, S1-S2, , no murmur or rub. Abdomen: Soft nontender, positive bowel sounds. Extremities: No edema, intact distal pulses. Neuro: Alert, oritented, no focal deficits. Detailed neuro exam was not performed. ASSESSMENT: # Lightheadedness and presyncope, likely from dehydration # Mobitz type 1 second-degree AV block # Chronic HFpEF, NYHA class III, currently 1 week # LYNN # CKD # Essential hypertension PLAN: Holter monitor to be applied today. Patient wishes to follow-up with his primary lavatory attendant out of [facility] and I advised to do so in 2 weeks. Stable for discharge from a cardiac perspective. Nurse Practitioner note has been reviewed, I agree with a documented findings and plan of care. Patient was seen and examined. Objective - Vital Signs Vital signs: Vital Signs Temp 98 F 03/17/25 05:48 Pulse 84 03/17/25 08:26 Resp 17 03/17/25 05:48 BP 123/79 03/17/25 05:48 Pulse Ox 96 03/17/25 08:12 FiO2 Intake & Output 03/16/25 03/17/25 03/17/25 18:59 06:59 18:59 Intake Total 298 Balance 298 Intake: Oral 298 Other: Voiding Method Self-Catheterization Self-Catheterization # Voids 1 2 - Labs CBC & Chem 7: 03/15/25 17:33 03/15/25 17:33
[2025-03-18 07:31] VITALS: BP 139/72; PULSE 88; RESP 15; TEMP 97.4
== END 2025-03-18 10:36 | disposition home or self-care (01) | DRG 309 ==
LOC: EC 17:02 → 6NMEDSUR 19:47
PROVIDERS: ADMIT Family Medicine; ATTEND Family Medicine
DX: I44.1 Atrioventricular block, second degree (principal); I13.0 Hypertensive heart and chronic kidney disease with heart failure and stage 1 through stage 4 chronic kidney disease, or unspecified chronic kidney disease; I50.32 Chronic diastolic (congestive) heart failure; N17.9 Acute kidney failure, unspecified; N18.9 Chronic kidney disease, unspecified; I42.9 Cardiomyopathy, unspecified; R55 Syncope and collapse; E78.5 Hyperlipidemia, unspecified; E86.0 Dehydration; I25.10 Atherosclerotic heart disease of native coronary artery without angina pectoris; Z79.02 Long term (current) use of antithrombotics/antiplatelets; Z79.82 Long term (current) use of aspirin; Z79.84 Long term (current) use of oral hypoglycemic drugs; Z79.890 Hormone replacement therapy; Z79.899 Other long term (current) drug therapy; Z87.891 Personal history of nicotine dependence; Z95.5 Presence of coronary angioplasty implant and graft; Z87.19 Personal history of other diseases of the digestive system
CPT/HCPCS: 36415; 70450; 71046; 72125; 80053; 83735; 84439; 84443; 84484; 85025; 85610; 85730; 93005; 93225; 94640; 94760; 96360; 96361; 99291

== ENCOUNTER 2025-04-17 19:50 | Emergency (ER) | payer MEDICARE ==
[2025-04-17 20:04] VITALS: RESP 18
[2025-04-17] MEDS: LIDOCAINE/EPINEPHR/TETRACAINE 5 ML BOTTLE TOPICAL ONE (20:50)
--- NOTE | 2025-04-17 21:41 | ED ---
Skin/Abscess/FB HPI - General Chief complaint: Skin/Abscess/Foreign Body Stated complaint: Laceration on L hand Time Seen by Provider: 04/17/25 20:00 Source: patient, RN notes reviewed Mode of arrival: ambulatory Limitations: no limitations - History of Present Illness Initial comments: 84-year-old male presenting for skin tear on the left hand yesterday. States he was in his workshop when a piece of wood fell onto his left hand. States he is having difficulty controlling the bleeding. He is on blood thinners. Rest tetanus unknown. Denies pain or difficulty with range of motion of the hand. - Related Data Home Medications Medication Instructions Recorded Confirmed Aspirin 81 mg PO DAILY 04/18/20 10/01/24 Clopidogrel [Plavix] 75 mg PO DAILY 04/18/20 10/01/24 Levothyroxine Sodium [Synthroid] 125 mcg PO DAILY 04/18/20 10/01/24 Atorvastatin Calcium [Lipitor] 40 mg PO DAILY 07/01/23 10/01/24 Losartan [Cozaar] 50 mg PO DAILY 07/01/23 10/01/24 Nystatin 100,000Unit/gm Cream 1 applic TOPICAL DAILY 07/01/23 10/01/24 [Mycostatin Cream] Previous Rx's Medication Instructions Recorded Ciprofloxacin HCl [Cipro] 500 mg PO BID 7 Days #14 tab 07/04/23 Acetaminophen Tab [Tylenol] 650 mg PO Q6HR PRN tab 10/03/24 Bumetanide [BUMEX] 1 mg PO DAILY 90 Days #90 tab 10/03/24 Dapagliflozin Propanediol [Farxiga] 10 mg PO DAILY 90 Days #90 tab 10/03/24 Ipratropium-Albuterol Nebulize 3 ml INHALATION RT-TID 30 Days #90 10/03/24 [Duoneb 0.5 mg-3 mg/3 ml Soln] each carvediloL [Coreg] 6.25 mg PO BID-W/MEALS 90 Days 10/03/24 #180 tab Allergies Allergy/AdvReac Type Severity Reaction Status Date / Time No Known Allergies Allergy Verified 04/17/25 20:04 Review of Systems ROS Statement: Those systems with pertinent positive or pertinent negative responses have been documented in the HPI. ROS Other: All systems not noted in ROS Statement are negative. Past Medical History Past Medical History: Coronary Artery Disease (CAD), Heart Failure, Hyperlipidemia, Hypertension, Prostate Disorder, Thyroid Disorder Additional Past Medical History / Comment(s): hx polyps, constipation, pt thinks may have had heart attack 2 yrs ago, uses straight cath at home due to enlarged prostate, Hard of hearing History of Any Multi-Drug Resistant Organisms: None Reported Past Surgical History: Heart Catheterization With Stent, Hernia Repair Additional Past Surgical History / Comment(s): 3 cardiac stents, Past Anesthesia/Blood Transfusion Reactions: No Reported Reaction Date of Last Stent Placement:: 05/2019 Past Psychological History: No Psychological Hx Reported Smoking Status: Former smoker Past Alcohol Use History: None Reported Past Drug Use History: None Reported - Past Family History Mother Family Medical History: No Reported History Additional Family Medical History / Comment(s): at 40, "big drinker" General Exam Limitations: no limitations General appearance: alert, in no apparent distress Head exam: Present: atraumatic, normocephalic, normal inspection Eye exam: Present: normal appearance, PERRL, EOMI. Absent: scleral icterus, conjunctival injection, periorbital swelling Left Forearm Wrist exam: Present: normal inspection, full ROM. Absent: tenderness, swelling Hand Wrist exam: Present: full ROM. Absent: normal inspection (Skin tear present on dorsal left hand with active bleeding), tenderness, swelling, deformity, dislocation Vascular: Present: normal capillary refill, radial pulse. Absent: vascular compromise Neurological exam: Present: alert, oriented X3 Psychiatric exam: Present: normal affect, normal mood Skin exam: Present: warm, dry, intact, normal color. Absent: rash Course Vital Signs 04/17/25 20:00 Temperature 97.8 F Pulse Rate 61 Respiratory 18 Rate Blood Pressure 144/80 O2 Sat by Pulse 99 Oximetry Medical Decision Making - Medical Decision Making Was pt. sent in by a medical professional or institution (, PA, CUTTING TABLE OPERATOR FIRST, urgent care, hospital, or fci...) When possible be specific @ -No Did you speak to anyone other than the patient for history (EMS, parent, family, police, friend...)? What history was obtained from this source @ -No Did you review nursing and triage notes (agree or disagree)? Why? @ -I reviewed and agree with nursing and triage notes Were old charts reviewed (outside hosp., previous admission, EMS record, old EKG, old radiological studies, urgent care reports/EKG's, fci records)? Report findings @ -No old charts were reviewed Differential Diagnosis (chest pain, altered mental status, abdominal pain women, abdominal pain men, vaginal bleeding, weakness, fever, dyspnea, syncope, headache, dizziness, GI bleed, back pain, seizure, CVA, palpatations, mental health, musculoskeletal)? @ -Differential Musculoskeletal Muscular strain, contusion, ligament sprain, fracture, arthritis, septic arthr itis, bursitis, cellulitis, muscle spasm, nerve compression, DVT, arterial occlusion, herpes zoster, electrolyte abnormality, tumor.... This is not meant to be in all inclusive list EKG interpreted by me (3pts min.). @ -None X-rays interpreted by me (1pt min.). @ -None done CT interpreted by me (1pt min.). @ -None done U/S interpreted by me (1pt. min.). @ -None done What testing was considered but not performed or refused? (CT, X-rays, U/S, labs)? Why? @ -Offered x-ray however patient states he is not having any left hand pain, no difficulty with range of motion or tenderness What meds were considered but not given or refused? Why? @ -None Did you discuss the management of the patient with other professionals (professionals i.e. , PA, CUTTING TABLE OPERATOR FIRST, lab, RT, psych nurse, social worker psychiatric, content development specialist, teacher, air defence officer, case resource manager)? Give summary @ -No Was smoking cessation discussed for >3mins.? @ -No Was critical care preformed (if so, how long)? @ -No Were there social determinants of health that impacted care today? How? (Homelessness, low income, unemployed, alcoholism, drug addiction, transportation, low edu. Level, literacy, decrease access to med. care, retirement, rehab)? @ -No Was there de-escalation of care discussed even if they declined (Discuss DNR or withdrawal of care, Hospice)? DNR status @ -No What co-morbidities impacted this encounter? (DM, HTN, Smoking, COPD, CAD, Cancer, CVA, ARF, Chemo, Hep., AIDS, mental health diagnosis, sleep apnea, morbid obesity)? @ -None Was patient admitted / discharged? Hospital course, mention meds given and route, prescriptions, significant lab abnormalities, going to OR and other pertinent info. @ -Discharge. 84-year-old male presenting for skin tear of left hand yesterday. Tetanus was updated. Let was applied to the skin tear which successfully stopped the bleeding. Wound was dressed appropriately. Appropriate return precautions/supportive care discussed. Case was discussed with my ED attending Dr. Francis Undiagnosed new problem with uncertain prognosis? @ -No Drug Therapy requiring intensive monitoring for toxicity (Heparin, Nitro, Insulin, Cardizem)? @ -No Were any procedures done? @ -No Diagnosis/symptom? @ -Skin tear of left hand Acute, or Chronic, or Acute on Chronic? @ -Acute Uncomplicated (without systemic symptoms) or Complicated (systemic symptoms)? @ -Uncomplicated Side effects of treatment? @ -No Exacerbation, Progression, or Severe Exacerbation? @ -No Poses a threat to life or bodily function? How? (Chest pain, [place], DC, pneumonia, PE, COPD, DKA, ARF, appy, cholecystitis, CVA, Diverticulitis, Homicidal, Suicidal, threat to staff... and all critical care pts) @ -No Disposition Clinical Impression: Skin tear of left hand without complication Disposition: HOME SELF-CARE Condition: Stable Instructions (If sedation given, give patient instructions): Skin Tear (ED) Additional Instructions: Please return to the Emergency Department if symptoms worsen or any other concerns. Is patient prescribed a controlled substance at d/c from ED?: No Referrals: Nathan Rueda MD [Primary Care Provider] - 1-2 days Time of Disposition: 21:41
[2025-04-17] MEDS: DIPH,PERTUS(ACELL)TETVAC-LF 0.5 ML VIAL IM ONE (21:45)
[2025-04-17 21:50] VITALS: BP 141/79; PULSE 79; TEMP 97.7
== END 2025-04-17 22:11 | disposition home or self-care (01) ==
LOC: EC 19:50
DX: S61.412A Laceration without foreign body of left hand, initial encounter (principal); Z79.01 Long term (current) use of anticoagulants; Z23 Encounter for immunization; Z87.891 Personal history of nicotine dependence; W20.8XXA Other cause of strike by thrown, projected or falling object, initial encounter
CPT/HCPCS: 90471; 90715; 99283